=== PATIENT | female | born 1930 | race Caucasian/White ===

== ENCOUNTER 2016-07-07 12:36 | Inpatient (IN) | payer MEDICARE ==
[~2016-07-07] VITALS: Ht 170.2 cm; Wt 57.7 kg
[2016-07-07 14:20] LABS: BASOPHILS 0.1 % (0.0-2.0); EOSINOPHILS 0.2 % (0-7); HEMATOCRIT 29.2 % (36.0-48.0); HEMOGLOBIN 9.6 g/dL (12-16); IMMATURE GRANULOCYTES 0.2 % (0-5); LYMPHOCYTES 23.6 % (15-50); MCH 32.7 pg (26.0-34.0); MCHC 32.9 g/dL (31.0-37.0); MCV 99.3 fL (80.0-100.0); MEAN PLATELET VOLUME 11.4 fL (7.4-10.4); MONOCYTES 4.7 % (2-11); NEUTROPHILS 71.2 % (40-80); RBC 2.94 10x6/uL (4.00-5.40); RDW 15.3 % (11.5-14.5); WBC 8.3 10x3/uL (4.8-10.8)
--- NOTE | 2016-07-07 14:30 | NUR ---
ASSESSMENT PER ADMIT PACK.FALL PREVENTION INITIATED.ORIENTATION TO ROOM.CALL LIGHT IN REACH.BED ALARM ON AND FUNCTIONING. TO BRING LISST OF HOME MEDS IN AM.PT STATES SHE HAS NO PHARMACY AND LIVES AT [facility].
[2016-07-07 14:53] LABS: PLATELET COUNT 120 10x3/uL (130-400)
[2016-07-07 15:12] LABS: ANION GAP 10.2 mmol/L (8-16); CALCIUM 11.1 mg/dL (8.5-10.1); CARBON DIOXIDE 29.4 mmol/L (21.0-32.0); POTASSIUM - SERUM 3.6 mmol/L (3.5-5.1)
[2016-07-07 15:33] VITALS: BP 170/79; Ht 170.2 cm; Wt 57.7 kg
[2016-07-07 15:51] LABS: % SATURATION 18 % (15-55); IRON 50 ug/dl (35-150); TOTAL IRON BIND CAPACITY 272 ug/dl (260-445); UNSAT IRON BIND CAPACITY 222 ug/dl (150-375)
--- NOTE | 2016-07-07 16:50 | NUR ---
Patient Name: MARLON BAZZI Admission Status: Urgent Accout number: [id number] Admission Date: 07-07-2016 : 1930 Admission Diagnosis: Attending: ELIAS Current LOS: 1 Anticipated DC Date: 07-10-2016 Planned Disposition: Home Primary Insurance: [employer] MEDICARE PPO or HMO Discharge Planning Comments: CM MET WITH PATIENT REGARDING D/C NEEDS AND PLANS. PATIENT STATED SHE LIVES WITH HER SPOUSE (JACKIE) AND HE WILL DRIVE HER HOME AT DISCHARGE. PATIENT IS INDEPENDENT WITH HER CARE AND HAS A WALKER, AND SHOWER BENCH. PATIENTS PCP IS DR. JACKSON AND USES [facility] AT [facility]. PATIENT HAS NOT HAD HOME HEALTH BUT WILL CONSIDER IT IF NEEDED. PATIENT LIVES AT [facility]. CM WILL CONTINUE TO FOLLOW PATIENT WITH D/C NEEDS AND PLANS. PCP DR. JACKSON [facility] [phone] JACKIE (SPOUSE) [phone] Package Dyeing Machine Operator: Ira Frank Is the patient Alert and Oriented? Yes 0 * How many steps to enter\exit or inside your home? 0 0 * PCP DR. JACKSON 0 * Pharmacy [facility] 0 * Preadmission Environment Home with Family 0 * ADLs Independent 0 * Equipment Shower Chair Walker 0 * List name and contact numbers for known caregivers / representatives who currently or will assist patient after discharge: JACKIE (SPOUSE) [phone] * Community resources currently utilized None 0 * Additional services required to return to the preadmission environment? Yes 0 * Can the patient safely return to the preadmission environment? Yes 0 * Has this patient been hospitalized within the prior 30 days at any hospital? No 0 Grand Total: 0
--- NOTE | 2016-07-07 17:05 | NUR ---
UNIT 1 OF 1 PRBC'S INITIATED.PT WITHOUT REACTIONS AT PRESENT.MONITOR FOR NEEDS.
--- NOTE | 2016-07-07 17:30 | HP ---
PATIENT: MARLON BAZZI MEDICAL RECORD: [id number] ACCOUNT: [id number] LOCATION:D.MS [id number] : [birth year] ADMISSION DATE: 07/07/16 HISTORY AND PHYSICAL EXAMINATION REASON FOR ADMISSION: Bright red rectal bleeding and dizziness. HISTORY OF PRESENT ILLNESS: The patient is an 85-year-old female with remote history of diverticulosis. She had a colonoscopy approximately [address] Shankar showing diverticular disease. She also had an EGD a few years ago showing Schatzki's rings and sliding hiatal hernia. She has had a gradual weight loss over the last several years with negative GI workup. She states that over the weekend, she developed some abdominal cramping and some bloody stools. states she had some watery bloody stools about , Wednesday afternoon and in the evening. She saw Dr. Haddad in our office on Wednesday. Hemoglobin had dropped from 12.9 in March to 9.9. The patient states she had been eating lots of red Jell-O and thought this was the cause of her symptoms. She was called to come back in to repeat her CBC today, hemoglobin dropped to 8.9. I performed a rectal exam in the office showing bright red blood per rectum and was grossly heme positive. No rectal masses were noted. She was mildly tachycardic with a heart rate of 100. She was normotensive; however. She is now being admitted for probable diverticular bleeding and potential transfusion with GI consultation. She denies any recent constipation or change in stool caliber prior to the onset of bleeding. PAST MEDICAL HISTORY: Osteoarthritis, essential hypertension, cholelithiasis with cholecystectomy, diverticulosis, dyslipidemia, history of closed pelvic fracture from fall, hypothyroidism, history of nephrolithiasis, GERD with Schatzki's ring, vitamin D deficiency, urinary incontinence with frequent urinary tract infections, had a right rotator cuff tear from a fall in 2011, refusing surgery, and had vein ____ of her left leg remotely. PAST SURGICAL HISTORY: Appendectomy, cholecystectomy laparoscopically, ____ suspension and right total knee replacement in 2013. ALLERGIES: CARDIZEM CAUSES BRADYCARDIA, CODEINE, COZAAR MAKES HER DIZZY, LUMINAL, PHENOBARBITAL, MOBIC, PAXIL, SOMA AND SULFA DRUGS. FAMILY HISTORY: Both parents are , had hypertension. SOCIAL HISTORY: She is , lives with . Does not drink alcohol or smoke currently. MEDICATIONS: Levothyroxine 100 mcg p.o. daily, Cipro of 250 mg p.o. daily for suppressive UTI, tramadol 50 mg q.6 hours p.r.n. back pain, methenamine hippurate 1 gram tablet p.o. daily, Zyrtec 10 mg p.o. daily, metoprolol tartrate 50 mg p.o. daily, Breo Ellipta 100/25 one puff daily, Cardura 1 mg p.o. b.i.d., triamterene/hydrochlorothiazide 37.5 mg q.a.m., Zetia 10 mg a day, Xanax 0.25 mg b.i.d. p.r.n. anxiety, Centrum Silver 1 daily, Nasonex nasal spray daily, Timoptic 0.5% one drop both eyes daily and Lumigan 0.01% eye drop, one drop both eyes daily. REVIEW OF SYSTEMS: GENERAL: She feels chronically fatigued. She reports weight loss over the last several years, but that has been minimal. Denies recent fever. HISTORY AND PHYSICAL [id number] MARLON BAZZI HEENT: She has chronic trouble with her vision. Denies headache. Some hearing difficulty. RESPIRATORY: Mild shortness of breath on exertion. No recent cough. CARDIAC: Denies exertional chest pain, claudication and edema. GASTROINTESTINAL: No nausea or vomiting. She had cramping abdominal pain that is improved. She had frequent bloody stools 2 days ago that has now resolved. She is having dark stool, but just once daily. Abdominal pain has resolved as well and no fever. Denies fatty food intolerance. ENDOCRINE: Denies polyuria, polydipsia, heat or cold intolerance. GYNECOLOGIC: No vaginal bleeding. MUSCULOSKELETAL: Chronic lumbago and knee pain to flexion and extension on the left. NEUROLOGIC: No history of stroke, TIA, or vascular headaches. Her memory is not what it used to be she states, but she still functions well and does ADLs. INTEGUMENT: No rash or itching. PSYCHIATRIC: Denies depress mood. PHYSICAL EXAMINATION: VITAL SIGNS: Height of 5 feet 7 inches, weight is 132 pounds. Blood pressure 124/60 with a heart rate of 90 and regular. HEENT: Normocephalic. Eyes are clear with pinpoint pupils. Oropharynx is unremarkable. NECK: No bruits or masses. CHEST: She has distant breath sounds with faint wheezes in the upper lobes. HEART: Tachycardic without murmur. ABDOMEN: Soft, minimally tender suprapubically, but no masses felt. RECTAL: The patient was placed in lateral decubitus position, rectal exam revealed bloody stool that was heme positive grossly. No rectal masses felt. No hemorrhoids are noted. EXTREMITIES: Evidence of prior right total knee replacement. Left knee shows mild crepitus on flexion and extension. No peripheral edema. SKIN: Shows no petechiae. NEUROLOGIC: Oriented to person, place and time. Cranial nerves are grossly intact. Gait is unsteady chronically from arthritic issues. She remembers 2/3 objects in 5 minutes. LABORATORY DATA: Stat H&H in the office showed a hemoglobin of 8.6 and hematocrit of 26.4 with a white count of 6970 and platelet count of 104,000. H&H was 12.9 and 36 two months ago. It was 9.9 and 30.4 yesterday. In March, her laboratory work showed a platelet count of 114,000 and H&H of 12.7 and 39.0 respectively. Normal liver functions and creatinine of 0.65. ASSESSMENT: 1. Acute lower gastrointestinal bleeding, suspect diverticular. 2. Symptomatic anemia. 3. Hypertension. 4. Hypothyroidism. 5. Osteoarthritis. 6. Recurrent urinary tract infection, glaucoma, dyslipidemia, history of nephrolithiasis, gastroesophageal reflux disease, Schatzki's ring, known diverticulosis, remote rotator cuff repair and vitamin D deficiency. PLAN: The patient is admitted for GI consultation. CT scan of the abdomen and pelvis with contrast. Transfusion of packed red cells as indicated. HISTORY AND PHYSICAL [id number] MARLON BAZZI TRANSINT:[id number] Voice Confirmation ID: [id number] DOCUMENT ID: [id number] DEJON JACKSON MD at 1730 CC: [id number] DICTATION DATE: 07/07/16 1324 POL[employer] DISTRICT SWITCHBOARD OPERATOR: 07/07/16 1457 ADM IN [place] [id number] [place] [address]
[2016-07-07] MEDS ORDERED: LUMIGAN 0.01%2.5 ML EACH EYE (19:13)
[2016-07-07] MEDS ORDERED: SYNTHROID100 MCG PO (19:14)
[2016-07-07] MEDS ORDERED: METOPROLOL TART50 MG PO (19:15)
[2016-07-07] MEDS ORDERED: CARDURA1 MG PO (19:19)
[2016-07-07] MEDS ORDERED: CIPRO250 MG PO (19:20)
[2016-07-07] MEDS ORDERED: METHENAMINE HIPP1 GM PO (19:21)
[2016-07-07] MEDS ORDERED: CENTRUM COMPLE1 EACH PO (19:24)
[2016-07-07] MEDS ORDERED: TRIAMTERENE-HCT1 TA1 PO (19:24)
[2016-07-07] MEDS ORDERED: PRESERVISION AR1 CAP PO (19:25)
[2016-07-07 20:46] VITALS: BP 160/78
[2016-07-08 04:00] VITALS: BP 167/80
--- NOTE | 2016-07-08 07:10 | NUR ---
REPORT RECEIVED FROM ELECTRICAL LABORATORY TECHNICIAN NURSE. CALL LIGHT IN REACH.
--- NOTE | 2016-07-08 08:22 | NUR ---
ASSESSMENT COMPLETED. I&O CATH USING STERILE TECHNIQUE. SAMPLE COLLECTED FOR UA WITH C&S AND SENT TO LAB. SCDs APPLIED TO BLE. PHARMACY OBTAINED AND PLACED IN COMPUTER. DID NOT OBTAIN PASSWORD D/T CONFIDENTIALITY STATUS. BED ALARM TURNED ON. CALL LIGHT IN REACH. WILL CONTINUE WITH PLAN OF CARE.
[2016-07-08 08:24] LABS: HAPTOGLOBIN 97 mg/dL (34-200)
[2016-07-08 08:41] VITALS: BP 161/98
--- NOTE | 2016-07-08 08:43 | NUR ---
BED ALARM TURNED OFF.
[2016-07-08 09:18] LABS: APPEARANCE HAZY (CLEAR); BILIRUBIN NEGATIVE (NEGATIVE); COLOR YELLOW (YELLOW); GLUCOSE NEGATIVE (NEGATIVE); KETONE NEGATIVE (NEGATIVE); LEUKOCYTE ESTERASE NEGATIVE (NEGATIVE); NITRITE NEGATIVE (NEGATIVE); PROTEIN NEGATIVE (NEGATIVE); UROBILINOGEN NORMAL (NORMAL)
[2016-07-08 09:19] LABS: FOLATE (FOLIC ACID) - SERUM >20.0 ng/mL (>3.0)
--- NOTE | 2016-07-08 09:48 | NUR ---
ABDOMINAL ULTRASOUND COMPLETE AT THIS TIME. PT REQUESTING TO HAVE CLEAR LIQUIDS. WILL CHECK WITH CARSON, MANAGER FOOD BEVERAGE AND MAKE SURE THAT IS OKAY. DENIES OTHER NEEDS AT PRESENT TIME. CALL LIGHT IN REACH, WILL CONTINUE WITH PLAN OF CARE.
[2016-07-08 10:14] LABS: BASOPHILS 0.2 % (0.0-2.0); EOSINOPHILS 0.6 % (0-7); HEMATOCRIT 30.7 % (36.0-48.0); HEMOGLOBIN 10.3 g/dL (12-16); IMMATURE GRANULOCYTES 0.2 % (0-5); MCH 32.2 pg (26.0-34.0); MCHC 33.6 g/dL (31.0-37.0); MEAN PLATELET VOLUME 11.4 fL (7.4-10.4); MONOCYTES 7.1 % (2-11); NEUTROPHILS 63.9 % (40-80); PLATELET COUNT 109 10x3/uL (130-400); RDW 15.6 % (11.5-14.5)
--- NOTE | 2016-07-08 10:21 | NUR ---
AM MEDS ADMINISTERED. REFUSED ALL MEDS EXCEPT FOR METOPROLOL, VOLTAREN GEL, AND 1/2 PACK OF MIRALAX. AT BEDSIDE. CALL LIGHT IN REACH.
[2016-07-08 10:26] LABS: CALCIUM 9.4 mg/dL (8.5-10.1); CARBON DIOXIDE 29.7 mmol/L (21.0-32.0); CHLORIDE - SERUM 107 mmol/L (98-107); POTASSIUM - SERUM 3.1 mmol/L (3.5-5.1); SODIUM 142 mmol/L (136-145); eGFR NON AFRICAN AMERICAN 84 mL/min (90-120)
[2016-07-08 10:31] LABS: MCV 95.9 fL (80.0-100.0); WBC 5.2 10x3/uL (4.8-10.8)
[2016-07-08 10:40] LABS: CALC OSMOLALITY 283 mosm/kg (275-300); CREATININE - SERUM 0.7 mg/dL (0.6-1.3); GLUCOSE 99 mg/dL (74-106); UREA NITROGEN 15 mg/dL (7-18)
--- NOTE | 2016-07-08 11:20 | NUR ---
STOOL SAMPLE COLLECTED AND SENT TO LAB FOR TESTS.
--- NOTE | 2016-07-08 11:29 | CN ---
PATIENT NAME:MARLON BAZZI MEDICAL RECORD: [id number] : [birth year] LOCATION:D.MS [id number] ADMIT DATE: 07/07/16 ACCOUNT: [id number] CONSULTING PHYSICIAN: SJ DHALIWAL MD REFERRING PHYSICIAN: RICK ARECHIGA MD DATE OF CONSULTATION: 07/07/2016 Gastroenterology Consultation REFERRING PHYSICIAN: Rick Arechiga MD. HISTORY OF PRESENT ILLNESS: The patient is an 85-year-old white female with a known history of significant diverticular disease, who basically was admitted with a 2-day history of painless hematochezia. She does have chronic constipation and takes MiraLax daily. Her last colonoscopy was in 2009 and revealed [id number] left-sided diverticular disease as well as some diverticular disease in the descending colon. She had an EGD in 2014, which revealed a Schatzki ring and a small hiatal hernia. Over the past several days, her hematocrit has dropped from around 12.5 to 8.5. She was subsequently admitted for further evaluation. PAST MEDICAL HISTORY: As above. She also has osteoarthritis, hypertension, hyperlipidemia, hypothyroidism, kidney stones, mild reflux. PAST SURGICAL HISTORY: Significant for cholecystectomy, appendectomy, bladder suspension, total knee replacement. ALLERGIES: CARDIZEM, CODEINE, COZAAR, PHENOBARBITAL, PAXIL, SOMA, SULFA AND MOBIC. FAMILY HISTORY: Negative for GI diseases. SOCIAL HISTORY: The patient is a nondrinker and nonsmoker. HOME MEDICATIONS: Include levothyroxine, tramadol, Zyrtec, metoprolol, Cardura, Maxzide, Zetia, Xanax, vitamins and glaucoma eye drops. REVIEW OF SYSTEMS: Noncontributory other than in HPI. PHYSICAL EXAMINATION: GENERAL: Reveals an elderly frail white female in no acute distress. She is a little hard of hearing. VITAL SIGNS: Stable. She is afebrile. CHEST: Clear. HEART: Regular rate and rhythm. ABDOMEN: Soft, nontender. EXTREMITIES: No edema. LABORATORY DATA: Remarkable for a hematocrit of 29, white count of 8000, platelet count of 120,000 with a normal differential. Electrolytes normal. BUN 26, creatinine 1. Iron saturation is 18%. Vitamin B12 and folate levels are pending. CT of the abdomen and pelvis is basically unremarkable other than some liver cysts, cardiomegaly, hydronephrosis of the left kidney and thickening of the left bladder wall, possibly related to past surgical changes. CONSULT REPORT [id number] MARLON BAZZI IMPRESSION: Acute painless hematochezia, most likely due to her first diverticular bleed. It seemed like she has already stopped bleeding at this time. She does have known [id number] diverticular disease throughout the left colon and in the ascending colon per colonoscopy several years ago as noted above. She denies any NSAID or aspirin use. She does have chronic constipation and takes MiraLax daily. RECOMMENDATION: 1. Agree with present care. 2. If bleeding recurs, we will order bleeding scan. 3. She is not really a candidate for colonoscopy at her age. 4. Agree with stool studies for the unlikely possibility of infectious colitis. TRANSINT:[id number] Voice Confirmation ID: [id number] DOCUMENT ID: [id number] SJ DHALIWAL MD at 1129 CC: RICK ARECHIGA MD [id number] DICTATION DATE: 07/07/16 185 COMPRESSION MOLDING MACHINE OPERATOR: 07/07/16 2141 ADM IN [facility] [address] [place] [address]
--- NOTE | 2016-07-08 13:40 | NUR ---
DENIES NEEDS AT THIS TIME. IN ROOM. CALL LIGHT IN REACH.
[2016-07-08 13:58] VITALS: BP 132/66; BP 168/82
--- NOTE | 2016-07-08 15:14 | NUR ---
CHELSIE GEL AND FLAGYL IVPB. AT BEDSIDE. CALL LIGHT IN REACH.
[2016-07-08 17:09] VITALS: BP 166/85
--- NOTE | 2016-07-08 17:09 | NUR ---
REFUSED VOLTAREN GEL. PLACED IN ENTERIC ISOLATION. EXPLAINED TO PATIENT WHY. VERBALIZED UNDERSTANDING.
--- NOTE | 2016-07-08 18:29 | NUR ---
NO CHANGES IN INITIAL ASSESSMENT. SCDs TO BLE. BED ALARM ON. CALL LIGHT IN REACH. WILL CONTINUE WITH PLAN OF CARE.
[2016-07-08 20:00] VITALS: BP 147/70
--- NOTE | 2016-07-08 20:14 | NUR ---
AWAKE WITH NO COMPLAINTS VOICED. SL INTACT TO UPPER LEFT ARM WIHTOUT REDNESS OR EDEMA NOTED. CL IN REACH.
[2016-07-09] VITALS: BP 140/72
--- NOTE | 2016-07-09 02:10 | NUR ---
resting quietly. no distress noted.
[2016-07-09 04:00] VITALS: BP 124/68
--- NOTE | 2016-07-09 04:28 | NUR ---
PT IS ASLEEP WITH EASY RESPIRATIONS AND NO DISTRESS NOTED. SHE HAS HER IV INFUSING WITHOUT PROBLEMS AND HER SCD'S ARE OFF AT THE MOMENT. ISOLATION REMAINS IN PLACE. THE BED IS LOW, RAILS UP X'S 2 WITH CALL LIGHT AT HAND.
--- NOTE | 2016-07-09 05:39 | NUR ---
NO CHANGE IN ASSESSMENT. CL IN REACCH.
[2016-07-09 06:39] LABS: BASOPHILS 0.5 % (0.0-2.0); EOSINOPHILS 1.4 % (0-7); HEMATOCRIT 28.5 % (36.0-48.0); HEMOGLOBIN 9.4 g/dL (12-16); IMMATURE GRANULOCYTES 0.2 % (0-5); MCH 32.3 pg (26.0-34.0); MEAN PLATELET VOLUME 10.6 fL (7.4-10.4); MONOCYTES 9.2 % (2-11); NEUTROPHILS 63.7 % (40-80); PLATELET COUNT 112 10x3/uL (130-400); RBC 2.91 10x6/uL (4.00-5.40); RDW 15.8 % (11.5-14.5); WBC 5.8 10x3/uL (4.8-10.8)
[2016-07-09 06:47] LABS: CALC OSMOLALITY 278 mosm/kg (275-300); CALCIUM 9.3 mg/dL (8.5-10.1); CARBON DIOXIDE 29.7 mmol/L (21.0-32.0); CHLORIDE - SERUM 107 mmol/L (98-107); CREATININE - SERUM 0.6 mg/dL (0.6-1.3); GLUCOSE 114 mg/dL (74-106); POTASSIUM - SERUM 3.5 mmol/L (3.5-5.1); SODIUM 139 mmol/L (136-145); UREA NITROGEN 13 mg/dL (7-18); eGFR NON AFRICAN AMERICAN > 90 mL/min (90-120)
[2016-07-09 06:51] LABS: MCV 97.9 fL (80.0-100.0)
--- NOTE | 2016-07-09 07:45 | NUR ---
ALERT, DENIES NEEDS, CALL LIGHT IN REACH, BED LOWEST POSITION, VITALS STABLE, ASSESSMENT COMPLETE, WILL CONTINUE TO MONITOR
[2016-07-09 07:57] VITALS: BP 152/71
--- NOTE | 2016-07-09 08:00 | NUR ---
PT IN FOR POSSIBLE GI BLEED, IV FLUID AND MAINTENANCE PROVIDED FOR PT AT THIS TIME. BED AT LOWEST SETTING SRX2 CALL LIGHT WITHIN REACH WILL CONTINUE TO MONITOR
[2016-07-09 12:20] VITALS: BP 135/67
[2016-07-09 15:08] LABS: HEMOGLOBIN 8.1 g/dL (12-16); MCHC 32.4 g/dL (31.0-37.0); MCV 98.8 fL (80.0-100.0); MEAN PLATELET VOLUME 10.9 fL (7.4-10.4); PLATELET COUNT 110 10x3/uL (130-400); RBC 2.53 10x6/uL (4.00-5.40); RDW 15.8 % (11.5-14.5); WBC 5.3 10x3/uL (4.8-10.8)
[2016-07-09 15:48] LABS: BASOPHILS 0.4 % (0.0-2.0); EOSINOPHILS 1.5 % (0-7); IMMATURE GRANULOCYTES 0.2 % (0-5); LYMPHOCYTES 23.4 % (15-50); MONOCYTES 7.7 % (2-11); NEUTROPHILS 66.8 % (40-80)
[2016-07-09 16:14] VITALS: BP 176/89
[2016-07-09 19:25] LABS: INR 1.28 (0.85-1.17); PROTIME 15.9 SECONDS (11.6-15.0)
[2016-07-09 20:00] VITALS: BP 148/73
[2016-07-10] VITALS: BP 160/75
--- NOTE | 2016-07-10 01:56 | NUR ---
BLOOD CONTINUES TO INFUSE DEE WELL WITH NO SIGNS OF TRANSFUSION REATION WILL CONTINUE TO MONITOR AND FOLLOW CURRENT PLAN OF CARE.
--- NOTE | 2016-07-10 04:49 | NUR ---
PT IS GETTING A UNIT OF BLOOD. IT IS HER 2ND UNIT. NO REACTIONS NOTED. ASSISTED UP TO THE BATHROOM TO HAVE A BM AND TO SELF CATH. THE BED IS LOW, REAILS UP X'S 2 WITH THE CALL LIGHT AT HAND.
--- NOTE | 2016-07-10 07:45 | NUR ---
ON BED KING, NO BLOOD SEEN IN LOOSE STOOL THIS AM, HELP TO THE BATHROOM TO SHE NEEDED TO STARIGHT CATH, DENIES OTHER NEEDS, BED LOWEST POSITION, CALL LIGHT IN REACH, WILL CONTINUE TO MONITOR
[2016-07-10 08:43] LABS: BASOPHILS 0.1 % (0.0-2.0); EOSINOPHILS 0.9 % (0-7); IMMATURE GRANULOCYTES 0.1 % (0-5); LYMPHOCYTES 17.6 % (15-50); MCHC 33.6 g/dL (31.0-37.0); MEAN PLATELET VOLUME 10.2 fL (7.4-10.4); MONOCYTES 6.9 % (2-11); NEUTROPHILS 74.4 % (40-80); PLATELET COUNT 110 10x3/uL (130-400); RDW 17.7 % (11.5-14.5)
[2016-07-10 08:44] LABS: HEMATOCRIT 35.4 % (36.0-48.0); HEMOGLOBIN 11.9 g/dL (12-16); MCV 92.2 fL (80.0-100.0); RBC 3.84 10x6/uL (4.00-5.40); WBC 6.9 10x3/uL (4.8-10.8)
[2016-07-10 08:53] LABS: CALC OSMOLALITY 283 mosm/kg (275-300); CALCIUM 8.7 mg/dL (8.5-10.1); CARBON DIOXIDE 29.8 mmol/L (21.0-32.0); CHLORIDE - SERUM 106 mmol/L (98-107); CREATININE - SERUM 0.6 mg/dL (0.6-1.3); GLUCOSE 99 mg/dL (74-106); SODIUM 143 mmol/L (136-145); UREA NITROGEN 11 mg/dL (7-18); eGFR NON AFRICAN AMERICAN > 90 mL/min (90-120)
--- NOTE | 2016-07-10 11:00 | NUR ---
LYING IN BED,WITHOUT DISTRESS.CALL LIGHT IN REACH
[2016-07-10 12:45] VITALS: BP 137/66
--- NOTE | 2016-07-10 13:01 | NUR ---
UP IN BED EATING LUNCH, DENIES NEEDS, WILL CONTINUE TO MONITOR
[2016-07-10 16:10] VITALS: BP 118/58
[2016-07-10 20:33] VITALS: BP 148/72
[2016-07-11 00:17] VITALS: BP 151/83
[2016-07-11 04:00] VITALS: BP 136/63
[2016-07-11 06:56] LABS: HEMATOCRIT 31.8 % (36.0-48.0); HEMOGLOBIN 10.7 g/dL (12-16); MCH 31.2 pg (26.0-34.0); MCHC 33.6 g/dL (31.0-37.0); MCV 92.7 fL (80.0-100.0); MEAN PLATELET VOLUME 10.7 fL (7.4-10.4); RBC 3.43 10x6/uL (4.00-5.40); RDW 18.1 % (11.5-14.5)
[2016-07-11 07:01] LABS: WBC 5.1 10x3/uL (4.8-10.8)
--- NOTE | 2016-07-11 07:30 | NUR ---
PT ASSESSMENT COMPLETE AWAKE AND ALERT ORINETED X 3 LUNGS CLAER BILATERALLY NO ACUTE DISTRESS NOTED DR ENGLISH CYR RECTAL EXAM DONE NO BLEEDING NOTED. PT DENEIS PAIN AT THSI TIME
--- NOTE | 2016-07-11 08:00 | NUR ---
PATIENT ALERT IN BED RESTING QUIETLY. RESPIRATIONS EVEN AND UNLABORED. FAMILY AT BEDSIDE. SIDE RAILS UP X2. BED IN LOW POSITION. CALL LIGHT IN REACH.
[2016-07-11 08:24] VITALS: BP 166/78
[2016-07-11 12:14] VITALS: BP 157/81
--- NOTE | 2016-07-11 14:00 | NUR ---
PT UP TO SHOWER NO ACUTE DISTRESS NTOED VOICES ALL NEEDS STAFF CALL LIGHT IN REACH SIDE RAILS UP X 2
[2016-07-11 16:30] VITALS: BP 149/86
--- NOTE | 2016-07-11 18:15 | NUR ---
PT RESTING IN BED CALL LIGHT IN REACH
[2016-07-11 20:00] VITALS: BP 177/91
[2016-07-12 04:00] VITALS: BP 153/73
[2016-07-12 07:10] LABS: OVA + PARASITE EXAM Final report (())
[2016-07-12 07:33] LABS: BASOPHILS 0.3 % (0.0-2.0); EOSINOPHILS 2.4 % (0-7); HEMATOCRIT 33.1 % (36.0-48.0); HEMOGLOBIN 11.1 g/dL (12-16); IMMATURE GRANULOCYTES 0.2 % (0-5); LYMPHOCYTES 28.5 % (15-50); MCH 31.4 pg (26.0-34.0); MCHC 33.5 g/dL (31.0-37.0); MCV 93.5 fL (80.0-100.0); MEAN PLATELET VOLUME 10.8 fL (7.4-10.4); MONOCYTES 9.5 % (2-11); NEUTROPHILS 59.1 % (40-80); PLATELET COUNT 129 10x3/uL (130-400); RBC 3.54 10x6/uL (4.00-5.40)
[2016-07-12 07:34] LABS: WBC 6.7 10x3/uL (4.8-10.8)
--- NOTE | 2016-07-12 07:35 | NUR ---
SITTING UP IN BED, DENIES NEEDS, ASSESSMENT COMPLETE, BED LOWEST POSITION, CALL LIGHT IN REACH, HOPING TO GET TO GO HOME TODAY, WILL CONTINUE TO MONITOR
[2016-07-12 10:07] VITALS: BP 148/71
[2016-07-12 12:50] VITALS: BP 141/66
--- NOTE | 2016-07-12 13:00 | NUR ---
UP TO BATHROOM, HAD BOWEL MOVEMENT BUT FLUSHED BEFORE I COULD MONITOR, PLACED A HAT IN HER BATHROOM TO COLLECT NEXT SAMPLE TO SEE IF SHE IS BLEEDING AGAIN
[2016-07-12 15:50] LABS: HEMATOCRIT 31.8 % (36.0-48.0); HEMOGLOBIN 10.6 g/dL (12-16); MCH 31.4 pg (26.0-34.0); MCHC 33.3 g/dL (31.0-37.0); MCV 94.1 fL (80.0-100.0); MEAN PLATELET VOLUME 10.6 fL (7.4-10.4); RBC 3.38 10x6/uL (4.00-5.40); RDW 17.9 % (11.5-14.5); WBC 6.8 10x3/uL (4.8-10.8)
[2016-07-12 17:17] VITALS: BP 142/74
[2016-07-12 19:00] VITALS: BP 174/81
--- NOTE | 2016-07-13 02:00 | NUR ---
PT IN BED WITH NO DISTRESS. RESPIRATIONS EVEN AND UNLABORED. SIDE RAILS X 2. BED LOW. BED ALARM ON. CALL LIGHT IN REACH.
--- NOTE | 2016-07-13 02:14 | NUR ---
EYES CLOSED RESPIRATIONS WITH EASE AND UNLABORED. SR UP X2 CALL LIGHT WITHIN REACH.
[2016-07-13 04:00] VITALS: BP 175/88
[2016-07-13 08:34] VITALS: BP 185/84
[2016-07-13 11:25] VITALS: BP 172/72
[2016-07-13 15:40] VITALS: BP 143/74
[2016-07-13 16:02] LABS: HEMATOCRIT 32.9 % (36.0-48.0); HEMOGLOBIN 10.7 g/dL (12-16); MCH 30.9 pg (26.0-34.0); MCHC 32.5 g/dL (31.0-37.0); MCV 95.1 fL (80.0-100.0); RBC 3.46 10x6/uL (4.00-5.40); RDW 17.8 % (11.5-14.5); WBC 5.8 10x3/uL (4.8-10.8)
[2016-07-13 19:00] VITALS: BP 154/78
--- NOTE | 2016-07-13 19:45 | NUR ---
PATIENT LYING IN BED, HEAD OF THE BED AT 45 DEGREES. PATIENT IS WATCHING T.V. NO NEEDS EXPRESSED AT THIS TIME. BED IN LOWEST POSITION, CALL LIGHT IN REACH, CONTINUE TO MONITOR, CONTINUE PLAN OF CARE.
[2016-07-14] VITALS: BP 143/70
--- NOTE | 2016-07-14 02:05 | NUR ---
REC'D PATIENT SITTING UP IN BED WATCHING TV. ALERT AND ORIENTED X4. DENIES PAIN AT THIS TIME. IS WANTING TO HAVE HER MEDS EARLY SO SHE CAN GO TO BED. NO DISTRESS NOTED. UP WITH ASSIST. DENIES FURTHER NEEDS AT THIS TIME. INTRUCTED TO CALL IF NEEDED ANYTHING. BED LOW, LOCKED CALL LIGHT IN REACH.
[2016-07-14 04:00] VITALS: BP 157/79
--- NOTE | 2016-07-14 06:01 | NUR ---
PATIENT RESTING IN BED. ADMINISTERED MEDS PRESCRIBED. NO DISTRESS NOTED. DENIED PAIN AT THIS TIME. DENIED FURTHER NEEDS AT THIS TIME. INSTUCTED TO CALL IF NEEDED ANYTHING. BED LOW, LOCKED, CALL LIGHT IN REACH.
[2016-07-14 07:31] LABS: CALC OSMOLALITY 282 mosm/kg (275-300); CALCIUM 8.8 mg/dL (8.5-10.1); CARBON DIOXIDE 31.9 mmol/L (21.0-32.0); CHLORIDE - SERUM 106 mmol/L (98-107); CREATININE - SERUM 0.7 mg/dL (0.6-1.3); GLUCOSE 91 mg/dL (74-106); SODIUM 141 mmol/L (136-145); UREA NITROGEN 19 mg/dL (7-18); eGFR NON AFRICAN AMERICAN 84 mL/min (90-120)
--- NOTE | 2016-07-14 07:40 | NUR ---
ASSISTED PT TO BATHROOM AT THIS TIME. PT SELF CATHETERIZED AND HAD A SMALL BM. ASSISTED BACK TO BED. SRX2 WITH BED IN LOWEST POSITION AND WHEELS LOCKED. BED ALARM ON AND CALL LIGHT IN REACH. WILL CONTINUE WITH PLAN OF CARE.
[2016-07-14 07:53] LABS: POTASSIUM - SERUM 2.8 mmol/L (3.5-5.1)
[2016-07-14 08:10] VITALS: BP 149/75
--- NOTE | 2016-07-14 08:33 | NUR ---
SCHEDULED MEDICATIONS ADMINISTERED AT THIS TIME WITHOUT DIFFICULTY. ASSESSMENT PERFORMED PER FLOWSHEET. PT DENIES NEEDS OR PAIN AT THIS TIME. SCD'S ON AND IN WORKING ORDER. CALL LIGHT IN REACH, WILL CONTINUE WITH PLAN OF CARE.
[2016-07-14 11:32] VITALS: BP 131/67
--- NOTE | 2016-07-14 13:37 | NUR ---
NUTRITION MONITORING & EVAL CHART REVIEWED, PT VISIT. REMAINS IN ISOLATION. TOLERATING REG DIET, 50% INTAKE. RD FOLLOWING
[2016-07-14 13:58] LABS: CALC OSMOLALITY 280 mosm/kg (275-300); CALCIUM 9.2 mg/dL (8.5-10.1); CARBON DIOXIDE 27.8 mmol/L (21.0-32.0); CHLORIDE - SERUM 107 mmol/L (98-107); CREATININE - SERUM 0.6 mg/dL (0.6-1.3); GLUCOSE 120 mg/dL (74-106); POTASSIUM - SERUM 4.2 mmol/L (3.5-5.1); SODIUM 139 mmol/L (136-145); UREA NITROGEN 18 mg/dL (7-18); eGFR NON AFRICAN AMERICAN > 90 mL/min (90-120)
[2016-07-14 14:40] LABS: HEMATOCRIT 32.2 % (36.0-48.0); HEMOGLOBIN 10.6 g/dL (12-16); MCH 31.7 pg (26.0-34.0); MCHC 32.9 g/dL (31.0-37.0); MCV 96.4 fL (80.0-100.0); MEAN PLATELET VOLUME 10.5 fL (7.4-10.4); RBC 3.34 10x6/uL (4.00-5.40); RDW 17.7 % (11.5-14.5); WBC 5.6 10x3/uL (4.8-10.8)
--- NOTE | 2016-07-14 15:35 | NUR ---
PRN ZOFRAN ADMINISTERED PER ORDER FOR C/O NAUSEA WHEN PT TAKES ANTIBIOTIC. REMAINS IN ISOLATION FOR C-DIFF AT THIS TIME. TO BE DISCHARGED PER DR JACKSON AFTER HE FINISHES AT THE CLINIC. MADE PT AWARE AND SHE VERBALIZED UNDERSTANDING.
[2016-07-14] MEDS ORDERED: FLAGYL500 MG PO (16:52)
[2016-07-14] MEDS ORDERED: ZOFRAN ODT4 MG/UDTAB PO (16:54)
--- NOTE | 2016-07-14 18:05 | NUR ---
DISCHARGE PAPERWORK REVIEWED AT THIS TIME. IV TO LEFT UPPER ARM D/C WITH CATH TIP INTACT. DENIES QUESTIONS OR CONCERNS.
--- NOTE | 2016-07-15 09:19 | NUR ---
LATE ENTRY: PATIENT D/C HOME YESTERDAY - SPOUSE DROVE HER. PATIENT DID NOT WANT HOME HEALTH OR HAD ANY OTHER NEEDS.
== END 2016-07-14 18:05 | disposition home or self-care (01) | DRG 378 ==
LOC: D.MS 12:36
PROVIDERS: Specialist; ADMIT Family Medicine
DX: K57.33 Diverticulitis of large intestine without perforation or abscess with bleeding (principal); D62 Acute posthemorrhagic anemia; N13.30 Unspecified hydronephrosis; R33.8 Other retention of urine; E87.6 Hypokalemia; K59.09 Other constipation; N32.3 Diverticulum of bladder; M19.90 Unspecified osteoarthritis, unspecified site; K64.4 Residual hemorrhoidal skin tags

== ENCOUNTER 2016-08-08 18:58 | Emergency (ER) | payer MEDICARE ==
[2016-07-07 15:33] VITALS: BMI 19.9
[~2016-08-08 18:58] MED LIST: CARDURA1 MG PO; CENTRUM COMPLE1 EACH PO; CIPRO250 MG PO; FLAGYL500 MG PO; LUMIGAN 0.01%2.5 ML EACH EYE; METHENAMINE HIPP1 GM PO; METOPROLOL TART50 MG PO; PRESERVISION AR1 CAP PO; SYNTHROID100 MCG PO; TRIAMTERENE-HCT1 TA1 PO; ZOFRAN ODT4 MG/UDTAB PO
[2016-08-08 21:35] LABS: BASOPHILS 0.4 % (0-2); EOSINOPHILS 0.5 % (0-7); HEMATOCRIT 35.2 % (36.0-48.0); HEMOGLOBIN 11.1 g/dL (12-16); IMMATURE GRANULOCYTES 0.2 % (0-5); LYMPHOCYTES 18.5 % (15-50); MCH 30.4 pg (26.0-34.0); MCHC 31.5 g/dL (31.0-37.0); MCV 96.4 fL (80.0-100.0); MEAN PLATELET VOLUME 10.5 fL (7.4-10.4); MONOCYTES 9.6 % (2-11); NEUTROPHILS 70.8 % (40-80); PLATELET COUNT 149 10x3/uL (130-400); RBC 3.65 10x6/uL (4.00-5.40); RDW 15.1 % (11.5-14.5); WBC 5.6 10x3/uL (4.8-10.8)
[2016-08-08 21:42] LABS: APPEARANCE HAZY (CLEAR); BILIRUBIN NEGATIVE (NEGATIVE); COLOR YELLOW (YELLOW); GLUCOSE NEGATIVE (NEGATIVE); KETONE NEGATIVE (NEGATIVE); LEUKOCYTE ESTERASE 1+ (NEGATIVE); NITRITE POSITIVE (NEGATIVE); PROTEIN TRACE mg/dL (NEGATIVE); SPECIFIC GRAVITY 1.015 (1.005-1.020); UROBILINOGEN NORMAL (NORMAL)
[2016-08-08 21:43] LABS: CALCIUM OXALATE CRYSTALS OCC /hpf (NONE SEEN); EPITHELIAL CELLS 0-5 /hpf (0-5); RED CELLS - URINE 0-5 /hpf (0-5)
[2016-08-08 21:44] LABS: BACTERIA MANY /hpf (NONE SEEN)
[2016-08-08 21:49] LABS: ALBUMIN 2.7 g/dL (3.4-5.0); ALKALINE PHOSPHATASE 49 U/L (46-116); ALT (SGPT) 18 U/L (10-68); BILIRUBIN - TOTAL 0.34 mg/dL (0.2-1.3); CALC OSMOLALITY 276 mosm/kg (275-300); CALCIUM 9.3 mg/dL (8.5-10.1); CARBON DIOXIDE 32.4 mmol/L (21.0-32.0); CHLORIDE - SERUM 101 mmol/L (98-107); CREATININE - SERUM 0.7 mg/dL (0.6-1.3); GLUCOSE 100 mg/dL (74-106); POTASSIUM - SERUM 3.7 mmol/L (3.5-5.1); PROTEIN - SERUM 5.1 g/dL (6.4-8.2); SODIUM 138 mmol/L (136-145); UREA NITROGEN 14 mg/dL (7-18); eGFR NON AFRICAN AMERICAN 84 mL/min (90-120)
== END 2016-08-08 22:15 | disposition home or self-care (01) ==
LOC: D.ER 18:58
PROVIDERS: Emergency Medicine; Nurse Practitioner Family
DX: N39.0 Urinary tract infection, site not specified (principal); R33.9 Retention of urine, unspecified

== ENCOUNTER 2016-09-08 13:45 | Outpatient (CLI) | payer MEDICARE ==
--- NOTE | 2016-09-08 14:45 | NUR ---
BLADDER SCAN PERFORMED, SHOWING 578 ML URINE IN BLADDER. ENCOURAGED PATIENT TO VOID SO A RESIDUAL BLADDER SCAN MAY BE PERFORMED. PATIENT STATES "BUT I CATHETERIZE MYSELF, I'M NOT ABLE TO VOID. AND THERE'S NO USE IN CATHETERIZING RIGHT NOW, BECAUSE A NURSE JUST TRIED TO AT DR GROVER'S OFFICE AND DIDN'T GET ANYTHING OUT." ENCOURAGED PATIENT TO TRY TO CATHETERIZE SELF. STATES "I WILL, BUT I FEEL LIKE I NEED TO HAVE A BOWEL MOVEMENT FIRST. I'VE BEEN CONSTIPATED." THIS NURSE ENCOURAGED PATIENT TO TRY TO HAVE BM AND THEN CATHETERIZE SELF. ASSISTED PATIENT TO TOILET, PATIENT HAS LARGE HARD BM IN TOILET. PATIENT CATHETERIZES SELF INTO TOILET AND HAS LARGE RETURN OF LIYA-COLORED URINE IN TOILET. PATIENT RETURNS TO BED, LIES DOWN AND REPEAT BLADDER SCAN PERFORMED SHOWING 0 ML. CALL PLACED TO DR GROVER'S OFFICE, RESULTS GIVEN TO DR GROVER'S NURSE. DR GROVER'S NURSE SPEAKS WITH PATIENT'S SPOUSE ON PHONE. DISCHARGE INSTRUCTIONS GIVEN TO PATIENT AND SPOUSE. PATIENT DISCHARGED HOME WITH SPOUSE BY PRIVATE VEHICLE
[2016-09-08 15:47] VITALS: BP 141/70; Ht 170.2 cm
== END 2016-09-08 15:35 | disposition home or self-care (01) ==
LOC: D.OPS 13:45
DX: R33.9 Retention of urine, unspecified (principal)

== ENCOUNTER 2016-10-28 03:49 | Emergency (ER) | payer SELFPAY ==
[2016-10-28 05:30] LABS: APPEARANCE HAZY (CLEAR); BILIRUBIN NEGATIVE (NEGATIVE); COLOR YELLOW (YELLOW); GLUCOSE NEGATIVE (NEGATIVE); KETONE NEGATIVE (NEGATIVE); LEUKOCYTE ESTERASE TRACE (NEGATIVE); NITRITE POSITIVE (NEGATIVE); PROTEIN 2+ mg/dL (NEGATIVE); UROBILINOGEN NORMAL (NORMAL)
[2016-10-28 05:31] LABS: BACTERIA MANY /hpf (NONE SEEN); EPITHELIAL CELLS 0-5 /hpf (0-5); WHITE CELLS - URINE 0-5 /hpf (0-5)
== END 2016-10-28 05:52 | disposition home or self-care (01) ==
LOC: D.ER 03:49
PROVIDERS: Family Medicine
DX: N39.0 Urinary tract infection, site not specified (principal); W06.XXXA Fall from bed, initial encounter; Y93.89 Activity, other specified; Y92.013 Bedroom of single-family (private) house as the place of occurrence of the external cause; E03.9 Hypothyroidism, unspecified; I10 Essential (primary) hypertension

== ENCOUNTER 2016-11-02 14:00 | Inpatient (IN) | payer MEDICARE ==
[~2016-11-02] VITALS: Ht 170.2 cm; Wt 73.3 kg
[2016-11-02 15:09] LABS: BASOPHILS 0.2 % (0-2); EOSINOPHILS 0 % (0-7); HEMATOCRIT 35.2 % (36.0-48.0); HEMOGLOBIN 11.5 g/dL (12-16); IMMATURE GRANULOCYTES 0.2 % (0-5); MCH 29.9 pg (26.0-34.0); MCHC 32.7 g/dL (31.0-37.0); MCV 91.4 fL (80.0-100.0); MEAN PLATELET VOLUME 9.9 fL (7.4-10.4); MONOCYTES 16.6 % (2-11); PLATELET COUNT 127 10x3/uL (130-400); RBC 3.85 10x6/uL (4.00-5.40); RDW 15.5 % (11.5-14.5); WBC 4.7 10x3/uL (4.8-10.8)
[2016-11-02 15:23] LABS: ALBUMIN 2.9 g/dL (3.4-5.0); ALKALINE PHOSPHATASE 57 U/L (46-116); ALT (SGPT) 58 U/L (10-68); BILIRUBIN - TOTAL 0.77 mg/dL (0.2-1.3); CALC OSMOLALITY 259 mosm/kg (275-300); CALCIUM 9.4 mg/dL (8.5-10.1); CARBON DIOXIDE 30.5 mmol/L (21.0-32.0); CHLORIDE - SERUM 92 mmol/L (98-107); CREATININE - SERUM 0.7 mg/dL (0.6-1.3); GLUCOSE 116 mg/dL (74-106); POTASSIUM - SERUM 5.1 mmol/L (3.5-5.1); PROTEIN - SERUM 5.6 g/dL (6.4-8.2); SODIUM 126 mmol/L (136-145); UREA NITROGEN 30 mg/dL (7-18); eGFR NON AFRICAN AMERICAN 84 mL/min (90-120)
[2016-11-02 15:30] LABS: PRO BNP 27371 pg/mL (0-450)
[2016-11-02 15:42] VITALS: BP 140/86; BMI 19.9
--- NOTE | 2016-11-02 15:52 | NUR ---
CALL PLACED TO DR JACKSON REGARDING UNABLE TO PLACE PERIPHERAL LINE X NUMEROUS STICKS. ORDERS RECIEVED TO CONSULT ANESTHESIA FOR CVL PLACEMENT. CALL PLACED TO SPOUSE [phone] AND MESSAGE LEFT ON MACHINE. CALL LIGHT IN REACH
--- NOTE | 2016-11-02 16:19 | NUR ---
DISCHARGED TO HOME AMBULATORY WITH . DISCHARGE INSTRUCTIONS GIVEN BOTH VERBALLY AND WRITTEN. ALL QUESTIONS ANSWERED. PATIENT AND VERBALIZED UNDERSTANDING OF SAME. NEEDED PRESCRIPTIONS GIVEN TO PATIENT. ALL BELONGINGS SENT WITH PATIENT.
--- NOTE | 2016-11-02 16:33 | NUR ---
PT ADMITTED TO FLOOR. ADMISSION ASSESSMENT COMPLETE. L ARM WITH BRUISING, R LOWER LEG STASIS ULCER, SACRUM WITH ERYTHEMA. GENERALIZED EDEMA THROUGHOUT, PITTING EDEMA IN LOWER EXTREMITIES BILATERALLY. SCD'S B/L. TELEMETRY IN PLACE. 2L O2 VIA NASAL CANNULA. 16F PEÑA CATHETER PLACED BY ABHISHEK DANIELSON. R FOREARM IV INSERTED BY ANESTHESIA. NO NEEDS VOICED AT THIS TIME. FALL RISK BAND IN PLACE. CALL LIGHT WITHIN REACH, SIDE RAILS UP X 2, BED IN LOWEST POSITION.
[2016-11-02 16:34] LABS: APPEARANCE HAZY (CLEAR); COLOR DK YELLOW (YELLOW); GLUCOSE NEGATIVE (NEGATIVE); LEUKOCYTE ESTERASE NEGATIVE (NEGATIVE); NITRITE POSITIVE (NEGATIVE); PROTEIN TRACE mg/dL (NEGATIVE)
[2016-11-02 16:35] LABS: BILIRUBIN NEGATIVE (NEGATIVE); KETONE MODERATE mg/dL (NEGATIVE); UROBILINOGEN NORMAL (NORMAL)
[2016-11-02 16:39] LABS: BACTERIA MANY /hpf (NONE SEEN); EPITHELIAL CELLS 0-5 /hpf (0-5)
[2016-11-02 18:07] LABS: CKMB 2.9 U/L (0.0-3.6); CREATINE KINASE 54 UL (21-215)
--- NOTE | 2016-11-02 18:19 | NUR ---
PT ELEVATED TROPONIN CALLED TO DR. PALMA, ORDERED 80MG LASIX X 1, NOTIFIED THAT DR. HARRIS ALREADY ORDERED. NO NEW ORDERS.
--- NOTE | 2016-11-02 18:52 | NUR ---
PT RESTING IN ROOM, NO COMPLAINTS AT THIS TIME. BED IN LOWEST POSITION, SIDE RAILS UP X 2, CALL LIGHT WITHIN REACH.
--- NOTE | 2016-11-02 19:35 | NUR ---
RECIEVED SHIFT REPORT. PT IS LYING IN BED. PT IS NONVERBAL AND ONLY RESPONDS TO STIMULI. IV IS PATENT AND FLUIDS ARE RUNNING PER ORDER. O2 @ 2 PER NASAL CANNULA. SCD'S ON. PEÑA IS DRAINING URINE BY GRAVITY. PT REQUIRES ASSISTANCE TURNING IN BED FOR COMFORT AND SKIN CARE. NO SIGNS OF DISTRESS ARE NOTED. WILL MONITOR. SIDE RAILS ARE UP X 2. BED IS IN LOWEST POSITION. BED ALARM IS ON FOR SAFETY. CALL LIGHT IS WITHIN REACH.
[2016-11-02 20:00] VITALS: BP 110/54
--- NOTE | 2016-11-02 20:27 | NUR ---
SHIFT ASSESSMENT COMPLETED. SCHEDULED MEDICATION NOT GIVEN DUE TO PT BEING NPO. WILL MONITOR. SIDE RAILS X 2. BED LOW. BED ALARM ON. CALL LIGHT IN REACH.
[2016-11-03] VITALS: BP 118/66
[2016-11-03 04:00] VITALS: BP 114/58
[2016-11-03 05:19] LABS: BASOPHILS 0 % (0-2); EOSINOPHILS 0.3 % (0-7); HEMATOCRIT 36.5 % (36.0-48.0); IMMATURE GRANULOCYTES 0.2 % (0-5); LYMPHOCYTES 6.5 % (15-50); MCH 29.6 pg (26.0-34.0); MCHC 32.9 g/dL (31.0-37.0); MCV 89.9 fL (80.0-100.0); MEAN PLATELET VOLUME 10.6 fL (7.4-10.4); MONOCYTES 11.9 % (2-11); NEUTROPHILS 81.1 % (40-80); RBC 4.06 10x6/uL (4.00-5.40); RDW 15.5 % (11.5-14.5)
[2016-11-03 05:26] LABS: PLATELET COUNT 153 10x3/uL (130-400); WBC 5.9 10x3/uL (4.8-10.8)
[2016-11-03 05:44] LABS: CALC OSMOLALITY 266 mosm/kg (275-300); CALCIUM 9.1 mg/dL (8.5-10.1); CHLORIDE - SERUM 93 mmol/L (98-107); CREATININE - SERUM 0.7 mg/dL (0.6-1.3); GLUCOSE 99 mg/dL (74-106); SODIUM 130 mmol/L (136-145); UREA NITROGEN 28 mg/dL (7-18); eGFR NON AFRICAN AMERICAN 84 mL/min (90-120)
[2016-11-03 05:54] LABS: POTASSIUM - SERUM 3.9 mmol/L (3.5-5.1)
--- NOTE | 2016-11-03 07:40 | HP ---
PATIENT: MARLON BAZZI MEDICAL RECORD: [id number] ACCOUNT: [id number] LOCATION:D.[id number] : [birth year] ADMISSION DATE: 11/02/16 HISTORY AND PHYSICAL EXAMINATION REASON FOR ADMISSION: Confusion with edema and shortness of breath. HISTORY OF PRESENT ILLNESS: The patient is an 85-year-old female, who was admitted in June of this year for rectal bleeding, diverticulosis of the large colon, thought due to anti-inflammatories; chronic hydronephrosis and urinary retention. Since discharge, she is noted to be fatigued. She was seen in the office last week after being instructed by Dr. Willett on catheterization for urinary retention and hydronephrosis. Her sodium was 121 at that time. Her diuretics, i.e. thiazide was discontinued. She was placed on sodium chloride tablets and placed on fluid restriction. She apparently fell over the weekend, fell out of her bed, hit her head or neck, had negative CT in the ED. I am not sure if lab was drawn. The hospital said it was okay? She came into the office this morning with obvious increasing peripheral edema, bilateral crackles in her lungs consistent with congestive heart failure. She was directly admitted to the hospital for further evaluation. On admission, she was normotensive but sat was 88%. Sodium returned at 126 up from 121, but her BNP was markedly elevated at 27,371. Her cardiac enzymes are currently pending. She is now admitted for congestive heart failure, hyponatremia with altered mental status and pulmonary edema. PAST MEDICAL HISTORY: Recent lower GI bleed with diverticular source. Hyponatremia, [id number], anemia of GI blood loss, resolved; osteoarthritis, essential hypertension, dyslipidemia, remote history of closed pelvic fracture from a fall, hypothyroidism, nephrolithiasis, recent left hydronephrosis, urinary retention requiring self catheterization, GERD with Schatzki's ring, vitamin D deficiency, history of right rotator cuff tear refusing surgery in 2011. PAST SURGICAL HISTORY: Cholecystectomy laparoscopically, appendectomy, bladder suspension and right total knee replacement in 2013. FAMILY HISTORY: Both parents are , had hypertension. SOCIAL HISTORY: She is , lives with her . They are both having more trouble maintaining independent status. She does not drink alcohol or smoke. HOME MEDICATIONS: Sodium chloride tablets 1 p.o. q.i.d., Lumigan 0.01% eye drops to each eye at bedtime, Synthroid 100 mcg p.o. 30 minutes a.c. breakfast, Lopressor 50 mg p.o. q.a.m., Cardura 1 mg p.o. b.i.d., methenamine hippurate 1 gram p.o. at bedtime, folic acid 1 daily 1 mg, Centrum Silver 1 daily, vitamin A 1 daily, vitamin C 1 daily, nitrofurantoin 100 mg p.o. at bedtime, Xanax 0.25 mg b.i.d. p.r.n. anxiety, doxazosin 1 mg p.o. b.i.d., Timoptic 0.5% eye drops 1 drop both eyes daily and cetirizine 10 mg p.o. daily. ALLERGIES: CARDIZEM CAUSING SLOW HEART RATE, CODEINE, COZAAR, LUMINAL, MOBIC, PAXIL, SOMA AND SULFA. REVIEW OF SYSTEMS: GENERAL: She has been fatigued with poor appetite for the last few days and HISTORY AND PHYSICAL [id number] MARLON BAZZI R very lethargic according to her . HEENT: She has noticed some "visual hallucinations" in the room at the time. She has had no auditory hallucinations. She has some trouble with her hearing, wears hearing aids. RESPIRATORY: She has had increasing cough, some mild shortness of breath at rest, not been walking very much. CARDIAC: Denies chest pain, but has had dyspnea at rest and on minimal exertion, and marked swelling in her arms and legs. She denies chest pain. GENITOURINARY: She has trouble with urinary retention. Last self cath, really has not done so in the last day or so. She has history of chronic UTIs, left hydronephrosis, no recent flank pain. GYNECOLOGIC: No vaginal bleeding. ENDOCRINE: Denies polyuria, polydipsia, heat or cold intolerance. NEUROLOGIC: No history of stroke, TIA, or vascular headaches, but admits to confusion currently. PSYCHIATRIC: Denies depressed mood. MUSCULOSKELETAL: Chronic arthralgias in the lumbar spine. INTEGUMENT: No rash or itching, but has noticed increased swelling in her hands and feet for the last 3-4 days. PHYSICAL EXAMINATION: VITAL SIGNS: Temperature is 96.4 Fahrenheit orally, pulse 89 and regular, respirations were 16, blood pressure 140/86 and sat of 88% on room air, correcting to 92% on 2 liters. GENERAL: The patient is very disheveled appearing, awake and communicative, but has slower speech than usual. She knows me, but not sure where she is. HEENT: No recent visual change. Her eyes are clear. Pupils are reactive. Sclerae nonicteric. Decreased bilateral with hearing aids in EACs. Oropharynx shows dry mucous membranes. NECK: No bruits or masses. CHEST: Has bilateral crackles in the bases to the mid scapula. HEART: Regular rate and rhythm. ABDOMEN: Soft, nontender. EXTREMITIES: She has 3+ pretibial and 4+ pitting edema in both of her feet, 2+ edema of her hands. She has bruising on her left hip from recent fall. NEUROLOGIC: Oriented to person, but not to place and time. She does recognize her and myself. She cannot walk at this time due to shortness of breath. She moves her arms and legs without difficulty, has fair strength bilaterally. INTEGUMENT: Shows some bruising on her left arm and forearm and hand. LABORATORY DATA: The patient's white count is 4700, H&H of 11.5 and 35.2, and platelet count of 127,000. Sodium is 126, up from 121; potassium is 5.1, BUN and creatinine are 30 and 0.7, and glucose is 84. Her osmolality is low at 259. ProBNP is 27,371. Protein is low at 5.6. Urine shows moderate ketones, nitrite positive, 10-15 white cells per high power field, many bacteria. Urine culture in July show Enterobacter cloacae sensitive to trimethoprim sulfa, ceftazidime, Rocephin, imipenem, tobramycin and cefepime. IMAGING: Chest x-ray is currently pending. ASSESSMENT: 1. Congestive heart failure. 2. Symptomatic hyponatremia. 3. Urinary retention. HISTORY AND PHYSICAL [id number] MARLON BAZZI 4. Recurrent urinary tract infection, last was Enterobacter cloacae. 5. Respiratory failure with hypoxemia. 6. Osteoarthritis. 7. Essential hypertension. PLAN: The patient will be admitted for pulmonary support, IV diuretics once IV is placed. Place Gottlieb catheter. Cardiology consult will be obtained. We will place on IV Rocephin for her UTI at this time. TRANSINT:[id number] Voice Confirmation ID: [id number] DOCUMENT ID: [id number] DEJON JACKSON MD at 0740 CC: [id number] DICTATION DATE: 11/02/16 1655 MAGAZINE KEEPER: 11/02/16 2201 ADM IN [place] [id number] [place] [address]
--- NOTE | 2016-11-03 07:50 | NUR ---
AWAKE AND ALERT. ORIENTED X3. NO C/O THIS AM. LUNGS HAVE FAINT CRACKLES THROUGHOUT WHICH IS IMPROVED FROM YESTERDAY. OCCASSIONAL DRY COUGH NOTED. SKIN IS INTACT WITHOUT REDNESS. EXCEPT VERY EDEMATOUS IN EXTREMETIES, 2 PLUS IN ARMS AND 3 PLUS IN LEGS. REDNESS NOTED TO ANAL AND MACRINA AREAS. WILL MONITOR. IV TO RIGHT FOREARM IS PATENT WITHOUT REDNESS AT INSERTION SITE. O22L NC. PEÑA PATENT WITH CLEAR YELLOW URINE. DENIES NEEDS.
--- NOTE | 2016-11-03 08:23 | NUR ---
Patient Name: MARLON BAZZI Admission Status: Urgent Accout number: [id number] Admission Date: 11-03-2016 : 1930 Admission Diagnosis: Attending: ELIAS Current LOS: 1 Anticipated DC Date: 11-05-2016 Planned Disposition: Home Primary Insurance: [employer] MEDICARE PPO or HMO Discharge Planning Comments: CM MET WITH PATIENT REGARDING D/C NEEDS AND PLANS. PATIENT STATED SHE LIVES WITH HER SPOUSE (JACKIE) AND HE WILL DRIVE HER HOME AT DISCHARGE. PATIENT STATED SHE HAS NO STEPS OR STAIRS AT HER HOME. PATIENT HAS HELP FROM [employer] [facility] IN THE [facility]. PATIENT STATED HER PCP IS DR. JACKSON AND PHARMACY IS [facility] AT [facility]. CM SPOKE WITH PATIENT ABOUT HOME HEALTH AND SHE WANTS TO TALK TO HER SPOUSE REGARDING HOME HEALTH. CM WILL CONTINUE TO FOLLOW PATIENT WITH D/C NEEDS AND PLANS. PCP DR. JACKSON [facility] [phone] JACKIE (SPOUSE) [phone] Can Carrier: Ira Frank Is the patient Alert and Oriented? Yes 0 * How many steps to enter\exit or inside your home? N 0 * PCP DR. JACKSON 0 * Pharmacy [facility] 0 * Preadmission Environment Home with Family 0 * ADLs Partial Dependent 0 * Partial ADLs (Assistance needed) Ambulation Bathing Dressing 0 * Equipment Shower Chair Walker 0 * List name and contact numbers for known caregivers / representatives who currently or will assist patient after discharge: JACKIE (SPOUSE) [phone] 0 * Community resources currently utilized Private Duty Care 0 * Please name any agencies selected above. [facility] AT THE [facility] 0 * Additional services required to return to the preadmission environment? Yes 0 * Can the patient safely return to the preadmission environment? Yes 0 * Has this patient been hospitalized within the prior 30 days at any hospital? No 0 Grand Total: 0
[2016-11-03 09:05] VITALS: BP 103/72
[2016-11-03 13:22] VITALS: BP 133/51
--- NOTE | 2016-11-03 13:51 | NUR ---
TURNED CURRENTLY ON LEFT SIDE FOR COMFORT WITH PILLOW TO BACK AND ONE BETWEEN LEGS. BED ALARM ON FOR SAFETY AND CALL LIGHT IN REACH. GENERALIZED EDEMA GREATLY DECREASED SINCE YESTERDAY. OXYGEN ON.
[2016-11-03 14:54] VITALS: Ht 170.2 cm; Wt 73.3 kg
[2016-11-03 17:36] VITALS: BP 131/65
--- NOTE | 2016-11-03 17:53 | NUR ---
SPEECH THERAPY HERE. PATIENT ALERT AND ABLE TO SWALLOW FOODS. CALL LIGHT IN REACH
--- NOTE | 2016-11-03 19:45 | NUR ---
RECIEVED SHIFT REPORT. PT IS LYING IN BED. ALERT AND ORIENTED AND ABLE TO VERBALIZE NEEDS. IV IS PATENT AND FLUIDS ARE RUNNING PER ORDER. O2 @ 1 PER NASAL CANNULA. PEÑA IS DRAINING URINE BY GRAVITY. PT REQUIRES SOME ASSISTANCE TURNING IN BED FOR COMFORT AND SKIN CARE. PT DENIES ANY PAIN AT THIS TIME. SCD'S ON. NO NEEDS ARE VERBALIZED AT THIS TIME. WILL CONTINUE TO MONITOR. SIDE RAILS ARE UP X 2. BED IS IN LOWEST POSITION. BED ALARM IS ON FOR SAFETY. CALL LIGHT IS WITHIN REACH.
[2016-11-03 20:00] VITALS: BP 109/72
--- NOTE | 2016-11-03 21:51 | NUR ---
SHIFT ASSESSMENT COMPLETED. EYE DROPS GIVEN PER ORDER. SCHEDULED CARDURA HELD DUE TO B/P=109/72. PT REQUESTING SOMETHING TO EAT. BROTH AND CRACKERS PROVIDED. NO FURTHER NEEDS AT THIS TIME. WILL MONITOR. SIDE RAILS X 2. BED LOW. BED ALARM ON. CALL LIGHT IN REACH.
[2016-11-04] VITALS: BP 114/68
[2016-11-04 04:00] VITALS: BP 112/70
[2016-11-04 05:47] LABS: BASOPHILS 0.2 % (0-2); EOSINOPHILS 0.5 % (0-7); HEMATOCRIT 35.2 % (36.0-48.0); HEMOGLOBIN 11.8 g/dL (12-16); IMMATURE GRANULOCYTES 0.2 % (0-5); LYMPHOCYTES 8.3 % (15-50); MCH 29.9 pg (26.0-34.0); MCHC 33.5 g/dL (31.0-37.0); MCV 89.3 fL (80.0-100.0); MEAN PLATELET VOLUME 10.4 fL (7.4-10.4); MONOCYTES 8.8 % (2-11); PLATELET COUNT 160 10x3/uL (130-400); RBC 3.94 10x6/uL (4.00-5.40); RDW 15.9 % (11.5-14.5); WBC 5.9 10x3/uL (4.8-10.8)
[2016-11-04 06:23] LABS: CALC OSMOLALITY 264 mosm/kg (275-300); CALCIUM 8.7 mg/dL (8.5-10.1); CARBON DIOXIDE 34.9 mmol/L (21.0-32.0); CHLORIDE - SERUM 92 mmol/L (98-107); CREATININE - SERUM 0.6 mg/dL (0.6-1.3); GLUCOSE 86 mg/dL (74-106); POTASSIUM - SERUM 3.3 mmol/L (3.5-5.1); SODIUM 131 mmol/L (136-145); T4 THYROXIN - FREE 1.37 ng/dL (0.76-1.46); UREA NITROGEN 22 mg/dL (7-18); eGFR NON AFRICAN AMERICAN > 90 mL/min (90-120)
--- NOTE | 2016-11-04 08:05 | NUR ---
PT CONFUSED AT TIMES AOX1 RESP EVEN AND NONLABORED PT DENIES NEEDS AT THIS TIME SRX2 BED AT LOWEST SETTING CALL LIGHT WITHIN REACH IV TO RIGHT FOREARM PATENT AND INTACT AT THIS TIME WILL CONTINUE TO MONITOR
[2016-11-04 09:41] VITALS: BP 134/79
[2016-11-04 16:20] VITALS: BP 119/57
--- NOTE | 2016-11-04 19:40 | NUR ---
RECIEVED SHIFT REPORT. PT IS LYING IN BED. ALERT AND ORIENTED AND ABLE TO VERBALIZE NEEDS. IV IS PATENT AND FLUIDS ARE RUNNING PER ORDER. O2 @ 2 PER NASAL CANNULA. PEÑA IS DRAINING URINE BY GRAVITY. PT DENIES ANY PAIN AT THIS TIME. PT REQUIRES ASSISTANCE TURNING IN BED FOR COMFORT AND SKIN CARE. SCD'S ON. NO NEEDS ARE VERBALIZED AT THIS TIME. FAMILY AT THE BEDSIDE. SIDE RAILS ARE UP X 2. BED IS IN LOWEST POSITION. BED ALARM IS ON FOR SAFETY. CALL LIGHT IS WITHIN REACH.
[2016-11-04 20:00] VITALS: BP 120/60
--- NOTE | 2016-11-04 22:55 | NUR ---
SHIFT ASSESSMENT COMPLETED. NIGHT MEDS GIVEN WITH NO PROBLEMS. NO NEEDS ARE VOICED. WILL MONITOR. SIDE RAILS X 2. BED LOW. BED ALARM ON. CALL LIGHT IN REACH.
[2016-11-05 04:00] VITALS: BP 132/66
[2016-11-05 06:01] LABS: BASOPHILS 0.1 % (0-2); EOSINOPHILS 0.4 % (0-7); HEMATOCRIT 32.8 % (36.0-48.0); HEMOGLOBIN 10.8 g/dL (12-16); IMMATURE GRANULOCYTES 0.1 % (0-5); LYMPHOCYTES 8.2 % (15-50); MCH 29.8 pg (26.0-34.0); MCHC 32.9 g/dL (31.0-37.0); MCV 90.4 fL (80.0-100.0); MEAN PLATELET VOLUME 9.9 fL (7.4-10.4); MONOCYTES 7.5 % (2-11); NEUTROPHILS 83.7 % (40-80); PLATELET COUNT 151 10x3/uL (130-400); RBC 3.63 10x6/uL (4.00-5.40); RDW 16.1 % (11.5-14.5); WBC 7.2 10x3/uL (4.8-10.8)
[2016-11-05 06:23] LABS: CALC OSMOLALITY 267 mosm/kg (275-300); CALCIUM 8.4 mg/dL (8.5-10.1); CARBON DIOXIDE 35.8 mmol/L (21.0-32.0); CHLORIDE - SERUM 94 mmol/L (98-107); CREATININE - SERUM 0.7 mg/dL (0.6-1.3); GLUCOSE 96 mg/dL (74-106); POTASSIUM - SERUM 3.8 mmol/L (3.5-5.1); SODIUM 132 mmol/L (136-145); UREA NITROGEN 20 mg/dL (7-18); eGFR NON AFRICAN AMERICAN 84 mL/min (90-120)
--- NOTE | 2016-11-05 08:48 | NUR ---
PT SEEN AND ASSESSED. NO COMPLAINTS AT PRESENT. 2+ GENERALIZED EDEMA. LUNGS CLEAR. NO SOB NOTED OR VOICED. NO FAMILY AT BEDSIDE CURRENTLY. BED ALARM ON FOR SAFETY. CALL LIGHT IN REACH
[2016-11-05 09:02] VITALS: BP 151/73
--- NOTE | 2016-11-05 10:01 | EC ---
PATIENT:MARLON BAZZI DATE OF SERVICE: 11/03/16 SEX: F MEDICAL RECORD: [id number] DATE OF : [birth year] LOCATION:[facility] AGE OF PATIENT: 85 ADMISSION DATE: 11/03/16 REFERRING PHYSICIAN: INTERPRETING PHYSICIAN: CHARITY HARRIS MD ECHOCARDIOGRAM REPORT ECHO CHARGES 4 ECHO COMPLETE CLINICAL DIAGNOSIS: CHF ECHOCARDIOGRAPHIC MEASUREMENTS (adult normal given) AC root (d.<3.7cm) 4.0 cm LV Septum d (<1.2 cm> 1.1 cm Valve Excursion 2.0 cm LV Septum (systole) 1.3 cm Left Atria (s.<4.0cm> 3.6 cm LVPW d(<1.2cm) 1.2 cm RV (d.<2.3cm) 3.8 cm LVPW (sytole) 1.4 cm LV diastole(<5.6CM) 6.1 cm MV E-F(>70mm/sec) cm LV systole 4.8 cm LVOT Diameter 1.8 cm MV exc.(>10mm) cm Est.ejection fraction (50-75%) % Pericardial Effusion Y DOPPLER: LVIT cm/sec A 84.0 cm/sec E 101 cm/sec LA cm/sec RVSP 45 mmHg LVOT 116 cm/sec AOP1/2T 415 m/s Asc. Ao 218 cm/sec RVOT 71 cm/sec RA cm/sec PA 108 cm/sec AV Gradient Peak 19.03mmHg AV Mean 10.09mmHg AV Area 1.4 cm MV Gradient Peak 5.60 mmHg MV Mean 2.15 mmHg MV Area cm COMMENTS: Graduate Internship: Lynette VILLAVICENCIO Records Management Coordinator: 4 Dr. Harris TAPE# PACS DATE OF SERVICE: 11/03/2016 IMPRESSION: 1. Left ventricle: Left ventricle has left ventricular hypertrophy. There is regional wall motion abnormality. The patient has a slightly D-shaped septum. The overall ejection fraction is 25% to 30%. 2. Right ventricle: Right ventricle appears to be mildly enlarged with normal function. 3. Aortic valve: The aortic valve is trileaflet. There is mild aortic cusp sclerosis without stenosis. There is trace aortic regurgitation. ECHOCARDIOGRAM REPORT [id number] MARLON BAZZI 4. Pulmonic valve pulmonic valve is not well visualized and there is trace pulmonic insufficiency. 5. Mitral valve: Mitral valve appears to be structurally normal. There is moderate mitral regurgitation with some evidence of centralized jet. No evidence of pulmonary vein reversal. 6. The left atrium. Appears to be normal size at 3.6 cm. 7. The right atrium is not well visualized, but appears to be grossly normal. 8. Interatrial septum appears to be intact. 9. Pericardium appears to have a small pericardial effusion, but does not appear to be tamponade physiology. 10. There is a pleural effusion and appears to be an echogenic structure outside the pericardium in the pleural space, which may be compressing upon the heart slightly. Etiology is uncertain. TRANSINT:[id number] Voice Confirmation ID: [id number] DOCUMENT ID: [id number] CHARITY HARRIS MD at 1001 CC: [id number] DICTATION DATE: 11/03/16 1728 GEOMETRICIAN: 11/04/16 0025 [facility] IN [facility] [address] [place] [address]
[2016-11-05 13:26] VITALS: BP 105/57
--- NOTE | 2016-11-05 14:38 | NUR ---
Nutrition Follow Up: Chart reviewed. Pt is eating 56% meal avg on a regular [facility] soft diet with thin liquids. No BM since admit. Wt loss since admit noted. Labs reviewed. Meds noted including Lasix. Rec continue current diet. Will continue to provide selective menus and honor food preferences. RD following.
[2016-11-05 16:28] VITALS: BP 110/60
[2016-11-05 20:00] VITALS: BP 85/45
[2016-11-05 21:25] VITALS: BP 120/60
--- NOTE | 2016-11-05 23:53 | NUR ---
PT SLOW TO RESPOND TO QUESTIONS. EDEMA +2 ALL EXTREMITIES. BLOOD PRESSURE LOW WITH VITAL MACHINE 85/45. MANUAL BP TAKEN RIGHT ARM 120/60. TELEMETRY RUNNING 89 CONTROLLED A-FIB. COMPLETE ASSESSMENT PER FLOW-SHEET. WILL CONTINUE TO MONITOR.
[2016-11-06] VITALS: BP 120/57
[2016-11-06 04:00] VITALS: BP 141/84
[2016-11-06 06:15] LABS: CALC OSMOLALITY 270 mosm/kg (275-300); CALCIUM 8.4 mg/dL (8.5-10.1); CARBON DIOXIDE 39.1 mmol/L (21.0-32.0); CHLORIDE - SERUM 95 mmol/L (98-107); CREATININE - SERUM 0.7 mg/dL (0.6-1.3); GLUCOSE 111 mg/dL (74-106); POTASSIUM - SERUM 3.4 mmol/L (3.5-5.1); SODIUM 134 mmol/L (136-145); UREA NITROGEN 17 mg/dL (7-18); eGFR NON AFRICAN AMERICAN 84 mL/min (90-120)
--- NOTE | 2016-11-06 07:15 | NUR ---
REPORT RECIEVED, ASSUMED CARE OF PT. PT RESTING IN ROOM, AT BEDSIDE. NO COMPLAINTS AT THIS TIME. BED LOW, SIDE RAILS UP X 2, CALL LIGHT WITHIN REACH.
[2016-11-06] MEDS ORDERED: IPRAT-ALBUT 0.5-3 ML UPD (07:46)
[2016-11-06] MEDS ORDERED: LISINOPRIL5 MG PO (07:47)
[2016-11-06] MEDS ORDERED: LASIX20 MG PO (07:47)
[2016-11-06] MEDS ORDERED: TIMOPTIC 0.5 % O5 ML EACH EYE (07:47)
[2016-11-06 08:27] VITALS: BP 135/68
--- NOTE | 2016-11-06 09:02 | NUR ---
CM REC. CALL FROM DEANN AT [facility] AND THEIR TRANSPORT VAN WILL PICK PATIENT UP AT 10:00 THIS MORNING W/OXYGEN FOR PATIENT. PATIENT WILL BE GOING TO A SENIOR CARE BED AT [facility] PER DEANN. NUMBER FOR REPORT ([phone] [facility]) GIVEN TO PALLAVI.
[2016-11-06] MEDS ORDERED: KEFLEX250 MG PO (09:22)
--- NOTE | 2016-11-06 09:30 | NUR ---
L WRIST IV D/C'D AT THIS TIME. CATHETER IN TACT. DRSG APPLIED. TELEMETRY REMOVED. PT DRESSED. WILL DISCHARGE.
--- NOTE | 2016-11-06 10:06 | NUR ---
REPORT CALLED TO DEANN ALVAREZ [facility]. [facility] IRON GUARDRAIL INSTALLER HERE TO STATE APPELLATE CLERK PT.
--- NOTE | 2016-11-06 10:18 | NUR ---
PT D/C ORDERED. TRANSPORTATION PROVIDED BY JAYME REYES. PEÑA CATHETER PATENT, STAT LOCK TO LEG. PT LEFT FLOOR WITH PERSONAL BELONGINGS, WITH PT.
== END 2016-11-06 10:20 | DRG 291 ==
LOC: D.MS 14:00 → OBSVTIME 14:00 → D.MS 11-03 07:35
PROVIDERS: ADMIT Family Medicine
PROC: 0T9B70Z Drainage of Bladder with Drainage Device, Via Natural or Artificial Opening (ICD-10-PCS; principal; 2016-11-02)
DX: I11.0 Hypertensive heart disease with heart failure (principal); J96.91 Respiratory failure, unspecified with hypoxia; E87.1 Hypo-osmolality and hyponatremia; E87.3 Alkalosis; N39.0 Urinary tract infection, site not specified; R41.82 Altered mental status, unspecified; R33.9 Retention of urine, unspecified; I10 Essential (primary) hypertension; M19.90 Unspecified osteoarthritis, unspecified site; I50.23 Acute on chronic systolic (congestive) heart failure

== ENCOUNTER 2016-12-26 01:18 | Emergency (ER) | payer MEDICARE, OTHER ==
[2016-11-03 14:54] VITALS: BMI 27.6
[~2016-12-26 01:18] MED LIST changes: +IPRAT-ALBUT 0.5-3 ML UPD; +KEFLEX250 MG PO; +LASIX20 MG PO; +LISINOPRIL5 MG PO; +TIMOPTIC 0.5 % O5 ML EACH EYE
== END 2016-12-26 03:30 | disposition home or self-care (01) ==
LOC: D.ER 01:18
DX: S42.201A Unspecified fracture of upper end of right humerus, initial encounter for closed fracture (principal); X58.XXXA Exposure to other specified factors, initial encounter; Y93.89 Activity, other specified; Y92.029 Unspecified place in mobile home as the place of occurrence of the external cause; I10 Essential (primary) hypertension

== ENCOUNTER 2017-01-10 06:01 | Inpatient (IN) | payer MEDICARE ==
[2017-01-10] VITALS (20 sets, daily range): BP systolic 106–151; BP diastolic 41–81
[2017-01-10 06:25] LABS: BASOPHILS 0.1 % (0-2); EOSINOPHILS 0.6 % (0-7); HEMATOCRIT 37.5 % (36.0-48.0); HEMOGLOBIN 12.1 g/dL (12-16); IMMATURE GRANULOCYTES 0.2 % (0-5); LYMPHOCYTES 15.2 % (15-50); MCH 31.7 pg (26.0-34.0); MCHC 32.3 g/dL (31.0-37.0); MCV 98.2 fL (80.0-100.0); MEAN PLATELET VOLUME 9.6 fL (7.4-10.4); MONOCYTES 7.1 % (2-11); NEUTROPHILS 76.8 % (40-80); PLATELET COUNT 193 10x3/uL (130-400); RBC 3.82 10x6/uL (4.00-5.40); RDW 18.1 % (11.5-14.5); WBC 10.3 10x3/uL (4.8-10.8)
[2017-01-10 06:39] LABS: ALBUMIN 3.2 g/dL (3.4-5.0); ALKALINE PHOSPHATASE 90 U/L (46-116); ALT (SGPT) 25 U/L (10-68); BILIRUBIN - TOTAL 0.59 mg/dL (0.2-1.3); CALC OSMOLALITY 273 mosm/kg (275-300); CALCIUM 9.8 mg/dL (8.5-10.1); CARBON DIOXIDE 29.5 mmol/L (21.0-32.0); CHLORIDE - SERUM 99 mmol/L (98-107); CREATININE - SERUM 0.6 mg/dL (0.6-1.3); GLUCOSE 158 mg/dL (74-106); POTASSIUM - SERUM 4.2 mmol/L (3.5-5.1); PROTEIN - SERUM 6.8 g/dL (6.4-8.2); SODIUM 134 mmol/L (136-145); UREA NITROGEN 21 mg/dL (7-18); eGFR NON AFRICAN AMERICAN > 90 mL/min (90-120)
[2017-01-10 06:45] LABS: CREATINE KINASE 50 UL (21-215); PRO BNP 11036 pg/mL (0-450); TROPONIN-I 0.047 ng/mL (0.000-0.060)
[2017-01-10 07:01] LABS: APPEARANCE CLEAR (CLEAR); BILIRUBIN NEGATIVE (NEGATIVE); COLOR STRAW (YELLOW); GLUCOSE NEGATIVE (NEGATIVE); KETONE NEGATIVE (NEGATIVE); NITRITE POSITIVE (NEGATIVE); PROTEIN TRACE mg/dL (NEGATIVE); UROBILINOGEN NORMAL (NORMAL)
[2017-01-10 07:02] LABS: BACTERIA FEW /hpf (NONE SEEN); EPITHELIAL CELLS 0-5 /hpf (0-5); RED CELLS - URINE 0-5 /hpf (0-5); WHITE CELLS - URINE 0-5 /hpf (0-5)
[2017-01-10] MEDS ORDERED: METOPROLOL TART50 MG PO (09:50)
[2017-01-10] MEDS ORDERED: SYNTHROID100 MCG PO (09:53)
[2017-01-10] MEDS ORDERED: K-DUR20 MEQ PO ×2 (10:04→10:06)
[2017-01-10] MEDS ORDERED: CELEXA10 MG PO (10:08)
[2017-01-10] MEDS ORDERED: XANAX0.25 MG PO (10:09)
[2017-01-10] MEDS ORDERED: VOLTAREN100 GM TOPICAL (10:12)
--- NOTE | 2017-01-10 15:00 | NUR ---
CATH IS FROM HOME. UNKNOWN WHEN PLACED. 16FR PEÑA CATH INSERTED WITHOUT DIFFICULTLY AND SECURED WITH STAT LOCK.
--- NOTE | 2017-01-10 17:45 | NUR ---
DR. JACKSON NOTIFIED OF 3300CC URINE OUTPUT. ORDER REC'D TO DC BUMEX GTT AND CHECK POTASSIUM LEVEL.
--- NOTE | 2017-01-10 19:27 | NUR ---
DR ACKERMAN NOTIFIED OF CONSULT, NO ORDERS RECEIVED AT THIS TIME.
--- NOTE | 2017-01-10 19:35 | NUR ---
RECEIVED CARE OF PT, ASSESSMENT PER FLOWSHEET. PT ALERT AND ORIENTED X 4, SITTING UP IN BED IN NO APPARENT DISTRESS, BREATH SOUNDS DIM IN BILAT BASES, ON 2L ON VIA NC, O2 SAT 97-98%, PPP, EDEMA NOTED TO BLE, PEÑA CATH PATENT WITH CLEAR YELLOW URINE IN COLLECTION CHAMBER, IMPAIRED ROM TO RUE-DISLOCATED PER PT, SLING IN PLACE. ASSISTED PT TO COMFORTABLE POSITION, DENIES ANY NEEDS AT THIS TIME, VSS, WILL MONITOR.
--- NOTE | 2017-01-10 21:21 | NUR ---
NO VISITORS PRESENT AT THIS TIME, PT RESTING IN BED WATCHING TV, HR SR WITH PAC'S ON CM, BED LOW, CALL LIGHT IN REACH.
--- NOTE | 2017-01-10 23:25 | NUR ---
REASSESSMENT PER FLOWSHEET, NO ACUTE CHANGES NOTED AT THIS TIME. ASSISTED PT TO RT SIDE SUPPORTED WITH PILLOWS, VSS, DENIES ANY OTHER NEEDS.
[2017-01-11] VITALS (24 sets, daily range): BP systolic 96–139; BP diastolic 40–69; BMI 22.2
--- NOTE | 2017-01-11 01:30 | NUR ---
PT RESTING IN BED WITH EYES CLOSED, BREATHING SHALLOW BUT EVEN AND UNLABORED. VSS, BED LOW, CALL LIGHT IN REACH, SR UP X 2.
--- NOTE | 2017-01-11 04:10 | NUR ---
AM CXR COMPLETED PER MD ORDER, PT TOLERATED WITHOUT DIFFICULTY, DENIES ANY NEEDS AT THIS TIME, VSS. BED LOW AND CALL LIGHT IN REACH.
[2017-01-11 04:46] LABS: BASOPHILS 0.2 % (0-2); EOSINOPHILS 0.9 % (0-7); HEMATOCRIT 31.5 % (36.0-48.0); HEMOGLOBIN 10.3 g/dL (12-16); IMMATURE GRANULOCYTES 0.2 % (0-5); LYMPHOCYTES 29.3 % (15-50); MCH 31.8 pg (26.0-34.0); MCHC 32.7 g/dL (31.0-37.0); MCV 97.2 fL (80.0-100.0); MEAN PLATELET VOLUME 9.3 fL (7.4-10.4); MONOCYTES 9.1 % (2-11); NEUTROPHILS 60.3 % (40-80); PLATELET COUNT 149 10x3/uL (130-400); RBC 3.24 10x6/uL (4.00-5.40); RDW 18.1 % (11.5-14.5); WBC 5.5 10x3/uL (4.8-10.8)
[2017-01-11 04:51] LABS: CARBON DIOXIDE 35.8 mmol/L (21.0-32.0); CHLORIDE - SERUM 100 mmol/L (98-107); CREATININE - SERUM 0.6 mg/dL (0.6-1.3); SODIUM 139 mmol/L (136-145); UREA NITROGEN 26 mg/dL (7-18); eGFR NON AFRICAN AMERICAN > 90 mL/min (90-120)
[2017-01-11 05:04] LABS: CALC OSMOLALITY 282 mosm/kg (275-300); GLUCOSE 92 mg/dL (74-106); POTASSIUM - SERUM 3.5 mmol/L (3.5-5.1)
--- NOTE | 2017-01-11 05:40 | NUR ---
AM LABS REVIEWED, NOTHING TO TREAT PER ELECTROLYTE PROTOCOL. HR SR WITH PAC'S ON CM, VSS, CONT POC.
--- NOTE | 2017-01-11 08:26 | NUR ---
SHIFT ASSESSMENT COMPLETE. PATIENT WAS SLEEPING AROUSES TO VERBAL STIMULI EASILY. CALL LIGHT WITHIN REACH, AND BED IN LOW POSITION.
--- NOTE | 2017-01-11 09:00 | NUR ---
HEATHER MORALES APRN HERE IN TO SEE PATIENT.
--- NOTE | 2017-01-11 11:14 | NUR ---
PATIENT SLEEPING AROUSES EASILY TO VERBAL STIMULI. CALL LIGHT WITHIN REACH, BED IN LOW POSITION. CM SR WITH PAC'S NOTED RATE OF 67.
--- NOTE | 2017-01-11 13:30 | NUR ---
PATIENT BACK TO BED FROM BSC. PATIENT HAD SMALL HARD BROWN BALLS BM. PATIENT MOVED BACK TO BED WITH MINIMAL ASSIST.
--- NOTE | 2017-01-11 14:01 | HP ---
PATIENT: MARLON BAZZI MEDICAL RECORD: [id number] ACCOUNT: [id number] LOCATION:[facility] : [birth year] ADMISSION DATE: 01/10/17 HISTORY AND PHYSICAL EXAMINATION REASON FOR ADMISSION: Acute shortness of breath. HISTORY OF PRESENT ILLNESS: The patient is an 86-year-old female with history of essential hypertension and congestive heart failure. She had an echocardiogram performed earlier this year, interpreted by Dr. Posada, with an EF of 25% to 30%. Most recently, she had dislocated her right shoulder and had been at rehab at [facility]. Apparently while there, her medications were adjusted by the [facility] physician. She was taken off of diuretics Dr. Jeronimo had ordered and placed on Lasix and her Lopressor been increased to t.i.d. Nonetheless, she felt pretty well yesterday when she went to bed last night she was sitting in a recliner. About 5 in the morning, she became acutely short of breath and called her and he took her to the Emergency Room for that reason. On presentation, she was tachypneic, tachycardic and hypertensive. EMS brought the patient in and her sats were in the 80s, they gave her 40 of Lasix IV push, placed the patient on CPAP en route. She was evaluated by the ER physician, chest x-ray showed pulmonary edema. Blood gas showed a pH of 7.275, pCO2 of 65.7, pO2 of [address] the patient on IV Bumex and ordered BiPAP. The patient gradually improved with diuresis and now saturations were in the low 90s on 3 liters. She denied chest pain. She has noticed increasing peripheral edema in her ankles and feet. I am concerned that she and her are confused about how to take her medications. She was seen in my office 2 days ago and had no signs of congestive failure at that time. More recently, she dislocated her right shoulder, but decided against having shoulder surgery due to her cardiac risk. She denies recent fever or productive cough. PAST HISTORY: Congestive heart failure, EF of 25% to 30%; essential hypertension; osteoarthritis; right shoulder dislocation with probable rotator cuff tear; hyponatremia, chronic; hydronephrosis of the left kidney; chronic UTI; chronic urinary incontinence with indwelling Gottlieb. Was hospitalized October of this year for respiratory failure and demand ischemia with EF of 25% to 30%, LVH, wall motion abnormalities. History of Clostridium difficile diarrhea; history of lower GI bleed with diverticular disease; [id number] anemia of GI blood loss; chronic hyponatremia; dyslipidemia; remote history of closed pelvic fracture from fall; hypothyroidism; nephrolithiasis; GERD with Schatzki's ring; vitamin D deficiency. PAST SURGICAL HISTORY: Cholecystectomy laparoscopically, bladder suspension; right total knee replacement in 2014; appendectomy. FAMILY HISTORY: Both parents are , had hypertension. SOCIAL HISTORY: She lives with her , both are have more trouble maintaining an independent status. She does not drink alcohol or smoke cigarettes. ALLERGIES: CARDIZEM CAUSE LOW HEART RATE, CODEINE, COZAAR, LUMINAL, MOBIC, PAXIL, SOMA, AND SULFA. MEDICATIONS: May not be accurate currently. The patient states she is taking levothyroxine 0.1 mg every morning; Xanax 0.25 b.i.d. p.r.n. anxiety; diclofenac HISTORY AND PHYSICAL [id number] MARLON BAZZI gel applied to right shoulder b.i.d.; lisinopril 5 mg a day; potassium 20 mEq p.o. daily; Lopressor 50 mg a day; methenamine hippurate tablet 1 gram p.o. daily; Celexa 10 mg a day; timolol maleate 1 drop both ears daily; Lasix 20 mg b.i.d., questionable compliance; DuoNeb updrafts t.i.d.; Cardura 1 mg b.i.d.; folic acid 1 mg daily. REVIEW OF SYSTEMS: Chronic fatigue, more so in the last 12 hours. No fever. HEENT: No recent visual change, has trouble hearing. RESPIRATORY: Patient has had shortness of breath early this morning without cough or sputum production. CARDIAC: Denies chest pain. Has noted peripheral edema, right greater than left, over the last week. GASTROINTESTINAL: No nausea or vomiting, No recent change in stools or blood per rectum. GENITOURINARY: Has chronic incontinence with indwelling Gottlieb. No dysuria. ENDOCRINE: Denies polyuria, polydipsia, heat or cold intolerance. NEUROLOGIC: No history of stroke, TIA, or vascular headaches. No rash or itching. PSYCHIATRIC: Denies depressed mood. MUSCULOSKELETAL: Has marked pain in her right shoulder and weakness in her right supraspinatus. PHYSICAL EXAMINATION: VITAL SIGNS: Temperature 96.7 Fahrenheit orally, pulse 102, respirations 28, blood pressure was 178/97 with a sat of 80% on room air, 100% on CPAP. HEENT: Eyes were clear with arcus senilis. Palpebral conjunctivae is pale. Oropharynx unremarkable. NECK: No bruits or JVD. CHEST: She has crackles in bases bilaterally with no wheeze. She is not tachypneic. HEART: Regular rate without murmur. ABDOMEN: Soft and nontender. EXTREMITIES: Lower extremity has 2+ edema below the knee versus 1+ on the right. She has healed surgical scar from right total knee replacement noted, well healed. Her right shoulder with limited range of motion due to pain and subluxation. NEUROLOGIC: Oriented to person, place, and time. Cranial nerves are grossly intact. Gait was not testable. LABORATORY AND DIAGNOSTIC DATA: EKG shows sinus tachycardia with premature supraventricular complexes, LAD, poor anterior R-wave, no old EKG to compare. ABGs as above. Sodium is 134, BUN 21, creatinine is 0.9, glucose 158. ProBNP is 11,036, troponin 0.047. ASSESSMENT AND PLAN: Congestive heart failure with acute pulmonary edema; essential hypertension; left ventricular hypertrophy; chronic urinary incontinence; systolic congestive heart failure; questionable medication noncompliance; osteoarthritis; history of lower GI bleeding due to diverticulosis; chronic hyponatremia; dyslipidemia; history of nephrolithiasis; vitamin D deficiency; gastroesophageal reflux disease. PLAN: The patient was admitted to the cardiac unit for Bumex diuresis. Her states Dr. Blake did a recent echocardiogram. We will consult him to obtain that copy and further medical management cardiac standpoint per Dr. Blake. Check serial cardiac enzymes. Further workup pending clinical course. HISTORY AND PHYSICAL [id number] MARLON BAZZI TRANSINT:[id number] Voice Confirmation ID: [id number] DOCUMENT ID: [id number] DEJON JACKSON MD at 1401 CC: [id number] DICTATION DATE: 01/10/17911 FINANCE DIRECTOR: 01/10/172209 [facility] [place] [id number] [place] [address]
--- NOTE | 2017-01-11 14:07 | NUR ---
PATIENT REFUSED VOLTAREN GEL AT THIS TIME, SHE ONLY WANTS TO TAKE IT TWICE A DAY. EDUCATED PATIENT ON MED, PATIENT STILL REFUSES MED AT THIS TIME.
--- NOTE | 2017-01-11 17:26 | NUR ---
PATIENT REFUSED VOLTAREN AT THIS TIME. PATIENT DENIES ANY NEEDS OR PAIN AT THIS TIME. CALL LIGHT WITHIN REACH, BED IN LOW POSITION.
--- NOTE | 2017-01-11 18:44 | NUR ---
PATIENT REFUSED VOLTARAN AT THIS TIME. PATIENT DENIES ANY PAIN OR NEEDS. CALL LIGHT WITHIN REACH, AND BED IN LOW POSITION.
--- NOTE | 2017-01-11 19:30 | NUR ---
REPORT RECIEVED. ASSESSMENT COMPLETED. SEE FLOW SHEET FOR FURTHER DETAILS. PT REQUESTED TO GET UP AND USE THE BED SIDE COMMODE. PT WAS SUCCESSFUL HAD A SEMI SOFT BM. PT CLEANED AND HELPED BACK TO BED. PT POSITIONED FOR COMOFORT WILL CONTINUE TO MONITOR PT.
--- NOTE | 2017-01-11 21:00 | NUR ---
PT RESTING COMOFORTABLY. NO VISITORS AT THIS TIME. PT POSITIONED FOR COMFORT WILL CONTINUE TO MONITOR PT.
--- NOTE | 2017-01-11 23:00 | NUR ---
REASSESSMENT COMPLETED. NO ACUTE CHANGES AT THIS TIME. SEE FLOW SHEET FOR DETAILS. PT POSITIONED FOR COMFORT WILL CONMTINUE TO MONITOR.
[2017-01-12] VITALS (22 sets, daily range): BP systolic 108–166; BP diastolic 44–98
--- NOTE | 2017-01-12 01:00 | NUR ---
PT RESTING WITH EYES CLOSED. WILL CONTINUE TO MONITOR PT.
--- NOTE | 2017-01-12 03:00 | NUR ---
REASSESSMENT COMPLETED. NO CHANGES AT THIS TIME. PT POSITIONED FOR COMFORT. WILL CONTINUE TO MONITOR.
--- NOTE | 2017-01-12 05:03 | NUR ---
PT RESTING. IF PT WAKES UP A BATH WILL BE GIVEN. PT HAS NO AM LABS ORDERED WILL PASS THAT ALONG TO THE ON COMING NURSE. WILL CONTINUE TO MONITOR.
--- NOTE | 2017-01-12 07:30 | NUR ---
SHIFT ASSESSMENT VIA FLOWSHEET, SEE FOR DETAILS.
--- NOTE | 2017-01-12 08:00 | NUR ---
BREAKFAST TRAY PROVIDED, ASSISTED TO POSITION OF COMFORT. PT VOICES NO ADDITIONAL NEEDS AT THIS TIME. VSS, CALL LIGHT WITHIN REACH.
--- NOTE | 2017-01-12 09:25 | NUR ---
OFFERED DOCUSATE TO PATIENT. PT STATES SHE TAKES MED HS, UPDATED ACCORDINGLY.
--- NOTE | 2017-01-12 09:43 | NUR ---
POWDER SHOVELER AT BEDSIDE WITH PATIENT.
--- NOTE | 2017-01-12 10:09 | NUR ---
* Is the patient Alert and Oriented? Yes 0 * How many steps to enter\exit or inside your home? 0 0 * PCP Dr. Arechiga 0 * Pharmacy [facility] [place] [facility] 0 * Preadmission Environment Assisted Living 0 * Facility Name [facility] 0 * ADLs Partial Dependent 0 * Partial ADLs (Assistance needed) Bathing Dressing Medication Management Toileting Transfers 0 * Equipment Catheter Supplies Rolling Walker Wheelchair 0 * List name and contact numbers for known caregivers / representatives who currently or will assist patient after discharge: Spouse - Aleksandar [phone] 0 * Community resources currently utilized Home Health 0 * Please name any agencies selected above. [facility] 0 * Additional services required to return to the preadmission environment? No 0 * Can the patient safely return to the preadmission environment? Yes 0 * Has this patient been hospitalized within the prior 30 days at any hospital? No Patient Name: MARLON BAZZI Admission Status: ER Accout number: [id number] Admission Date: 01-10-2017 : 1930 Admission Diagnosis: Attending: DEJON ARECHIGA Current LOS: 2 Anticipated DC Date: 01-13-2017 Planned Disposition: Home with Home Health Primary Insurance: [employer] MEDICARE PPO or HMO Discharge Planning Comments: CM met with patient & spouse to assess dc plans/needs. Patient lives at home with her , Aleksandar @ [facility]. She requires assistance with all ADL's. She states she is often able to transfer herself from WC to bed/chair, but sometimes requires assistance. She does not ambulate. She is current with [facility] - they provide lozano catheter care monthly and as needed. She also has an aide twice a week for bathing. At dc, patient plans to return home and resume home health services. CM will follow & assist as needed. Chart Writer: Zahraa Tejeda
--- NOTE | 2017-01-12 11:55 | NUR ---
ASSISTED PT TO BSC FOR BM.
--- NOTE | 2017-01-12 15:15 | NUR ---
SPOKE WITH DR JACKSON VIA PHONE, PT STATUS REPORTED. NEW ORDERS RECEIVED. INSTRUCTED TO HOLD TRANSFER UNTIL THE AM.
--- NOTE | 2017-01-12 17:10 | NUR ---
DINNER TRAY PROVIDED. VSS. PT VOICES NO ADDITIONAL NEEDS AT THIS TIME. CALL LIGHT WITHIN REACH.
--- NOTE | 2017-01-12 19:30 | NUR ---
REC'D TO CARE, [employer]VERTISING & ONLINE PER FLOWSHEET. VSS. PT AWAKE AND ALERT. R ARM IN SLING WITH REPORT OF DISLOCATED SHOULDER. PEÑA CATH PATENT. NO IV ACCESS. PT WITH TRANSFER ORDERS AWAITING ROOM. ALARMS ON AND C/L IN REACH.
[2017-01-12] MEDS ORDERED: PRESERVISION AR1 CAP PO (21:06)
--- NOTE | 2017-01-12 21:09 | NUR ---
ADMIN PO MEDS PER ORDERS. EYE DROPS GIVEN. OVER THE COUNTER EYE VITAMIN ADDED TO HOME MED LIST PER PT REQUEST.
--- NOTE | 2017-01-12 23:22 | NUR ---
RESTING WITH EYES CLOSED, VSS.
--- NOTE | 2017-01-13 01:00 | NUR ---
PT REPOSITIONS SELF. RESTING WITH EYES CLOSED, VSS.
[2017-01-13 03:00] VITALS: BP 144/68
--- NOTE | 2017-01-13 03:00 | NUR ---
NO ACUTE CHANGES. RESTING WITH EYES CLOSED, VSS. C/L IN REACH.
--- NOTE | 2017-01-13 05:15 | NUR ---
NO VISITORS, REFUSES BATH AT THIS TIME, "WANT TO SLEEP A LITTLE LONGER".
--- NOTE | 2017-01-13 06:24 | NUR ---
AM LAB PENDING
[2017-01-13 06:29] LABS: BASOPHILS 0.2 % (0-2); EOSINOPHILS 1.8 % (0-7); HEMATOCRIT 31.2 % (36.0-48.0); IMMATURE GRANULOCYTES 0.2 % (0-5); LYMPHOCYTES 23.3 % (15-50); MCH 32.1 pg (26.0-34.0); MCHC 32.1 g/dL (31.0-37.0); MEAN PLATELET VOLUME 9.8 fL (7.4-10.4); MONOCYTES 10.4 % (2-11); NEUTROPHILS 64.1 % (40-80); PLATELET COUNT 158 10x3/uL (130-400); RBC 3.12 10x6/uL (4.00-5.40); RDW 18.1 % (11.5-14.5); WBC 5.7 10x3/uL (4.8-10.8)
[2017-01-13 06:53] LABS: ALBUMIN 2.6 g/dL (3.4-5.0); ALKALINE PHOSPHATASE 59 U/L (46-116); ALT (SGPT) 18 U/L (10-68); CALC OSMOLALITY 282 mosm/kg (275-300); CALCIUM 9.3 mg/dL (8.5-10.1); CARBON DIOXIDE 36.5 mmol/L (21.0-32.0); CHLORIDE - SERUM 100 mmol/L (98-107); CREATININE - SERUM 0.6 mg/dL (0.6-1.3); GLUCOSE 89 mg/dL (74-106); POTASSIUM - SERUM 4.3 mmol/L (3.5-5.1); PROTEIN - SERUM 5.1 g/dL (6.4-8.2); SODIUM 138 mmol/L (136-145); UREA NITROGEN 36 mg/dL (7-18); eGFR NON AFRICAN AMERICAN > 90 mL/min (90-120)
--- NOTE | 2017-01-13 07:15 | NUR ---
PT ALERT AND ORIENTED, RESPIRATIONS EVEN AND UNLABORED, DENIES PAIN, VSS, REPOSITIONED, RIGHT SHOULDER IN SLING, PEÑA DRAINING CLEAR YELLOW URINE, SEE SHIFT ASSESSMENT, BREAKFAST OFFERED, WILL CO NTINUE TO MONITOR
[2017-01-13 08:00] VITALS: BP 140/66
[2017-01-13 09:00] VITALS: BP 126/57
--- NOTE | 2017-01-13 09:27 | NUR ---
PT TOOK AM MEDS WITHOUT DIFFICULTY, UP TO BSC WITH ONE FORMED BOWEL MOVEMENT, UP IN CHAIR BY PT AT THIS TIME, ATTEMPTED TO CALL REPORT PT WILL TRANSFER TO ROOM 2107, AWAITING CALL BACK
--- NOTE | 2017-01-13 09:40 | NUR ---
RECEIVED REPORT FROM ERICK.
--- NOTE | 2017-01-13 09:42 | NUR ---
REPORT CALLED TO ADRIAN ON MED 2
--- NOTE | 2017-01-13 09:57 | NUR ---
ATTEMPTED TO NOTIFY PT OF ROOM TRANSFER, LEFT VOICEMAIL TO RETURN CALL
--- NOTE | 2017-01-13 10:03 | NUR ---
0955-RECEVIED PATIENT VIA WHEELCAIR FROM UNIT. SLING SEEN TO RIGHT ARM BUT PATIENT IS USING HER ARM TO PUSH HERSLEF UP ONTO THE BED. HARD OF HEARING. NO IV ACCESS. SLIGHT REDNESS SEEN TO SPINE AREA, BONY. BILATERAL SCD'S ON AND IN USE. FRANK ALARM TURNED ON, YELLOW ARMBAND PLACED ON PATIENT. SHE DOES HAVE NON SKID SOCKS ON. PEÑA CATH PATENT. CALL LIGHT IN USE.
--- NOTE | 2017-01-13 10:21 | NUR ---
Nutrition Follow Up: Pt is eating 84% meal avg on an AHA diet. She is receiving Ensure BID. +BM 01/12/17. Labs reviewed. Meds noted including Lasix. Rec continue current diet. RD following.
[2017-01-13 12:14] VITALS: BP 136/60
--- NOTE | 2017-01-13 12:21 | NUR ---
1220-SPUSE AT BEDSIDE. HE IS STATING THAT THE FRANK ALARM IS "TOO SENSITIVE" WHEN SHE MOVES IT GOES OFF. I TOLD HIM THAT THIS IS A HIGH FALL RISK SAFTEY ISSUE AND WE MUST HAVE IT ON HER. HE SEEMS OKAY WITH THIS ANSWER.
--- NOTE | 2017-01-13 12:52 | NUR ---
PATIENT TO REFUSE HER VOLTAREN GEL TO HER RIGHT SHOULDER. SPOUSE IN ROOM.
--- NOTE | 2017-01-13 13:34 | NUR ---
RECIEVED REPORT FROM MACIEJ ENGEL. PATIENT IS ALERT AND ORIENTED AT THIS TIME. PATIENT IS [place]. HAS A HEARING AID NOTED TO L EAR. PATIENT HAS A PEÑA CATHETER, SECRURE WITH STAT LOKC, YELLOW URINE IN DRAINAGE BAG. PATIENT IS AT BEDSIDE. PATIENT DENIES ANY NEEDS OR PAIN. FRANK ALARM ON. CPOC
--- NOTE | 2017-01-13 15:08 | NUR ---
ASSISTED PATIENT TO CHAIR, PATIENT SITTING UP IN CHAIR. CALL LIGHT IN REACH. CPOC
[2017-01-13 15:55] VITALS: BP 145/68
--- NOTE | 2017-01-13 16:00 | NUR ---
PATIENT BACK TO CHAIR, SCDS ON, FRANK MAT ALARM ON. DENIES ANY NEEDS. CPOC
--- NOTE | 2017-01-13 18:35 | NUR ---
PATIENT SITTING UP IN BED, DENIES ANY NEEDS OR PAIN. BED LOW AND LOCKED. CALL LIGHT IN REACH. CPOC
[2017-01-13 19:00] VITALS: BP 142/65
--- NOTE | 2017-01-13 20:55 | NUR ---
PT AWAKE, ALERT, ORIENTED, DENIES ANY NEEDS. RT ARM/SHOULDER IS IN A SLING. PT STATES SHE HAS A HX OF C-DIFF AND ASSOCIATES THE VOLTAREN GEL WITH THE RECTAL BLEEDING THAT OCCURRED DURING THAT TIME. I REASSURED PT THAT SHE IS GETTING MINIMAL DOSING AND THAT WE ARE WATCHING HER CLOSELY. CONTINUE TO MONITOR. BED LOW, CALL LIGHT IN REACH, SIDE RAILS X 2, HOB 35 DEGREES.
--- NOTE | 2017-01-13 23:11 | NUR ---
PT RESTING COMFORTABLY AT THIS TIME, EYES CLOSED, RESPIRATIONS EVEN AND UNLABORED. CONTINUE TO MONITOR CLOSELY. BED LOW, CALL LIGHT IN REACH, SIDE RAILS X 2, HOB 20 DEGREES.
[2017-01-14] VITALS: BP 146/70
[2017-01-14 04:00] VITALS: BP 149/74
[2017-01-14 06:17] LABS: BASOPHILS 0.2 % (0-2); EOSINOPHILS 1.4 % (0-7); HEMATOCRIT 32.6 % (36.0-48.0); HEMOGLOBIN 10.5 g/dL (12-16); IMMATURE GRANULOCYTES 0.2 % (0-5); LYMPHOCYTES 26.8 % (15-50); MCHC 32.2 g/dL (31.0-37.0); MCV 99.4 fL (80.0-100.0); MONOCYTES 10.4 % (2-11); PLATELET COUNT 177 10x3/uL (130-400); RBC 3.28 10x6/uL (4.00-5.40); RDW 18.1 % (11.5-14.5); WBC 5.8 10x3/uL (4.8-10.8)
--- NOTE | 2017-01-14 06:19 | NUR ---
PT RESTING COMFORTABLY, DENIES ANY NEEDS. CONTINUE TO MONITOR CLOSELY.
[2017-01-14 06:37] LABS: CALC OSMOLALITY 281 mosm/kg (275-300); CALCIUM 9.3 mg/dL (8.5-10.1); CARBON DIOXIDE 37.6 mmol/L (21.0-32.0); CHLORIDE - SERUM 99 mmol/L (98-107); CREATININE - SERUM 0.7 mg/dL (0.6-1.3); GLUCOSE 90 mg/dL (74-106); POTASSIUM - SERUM 4.1 mmol/L (3.5-5.1); SODIUM 137 mmol/L (136-145); UREA NITROGEN 35 mg/dL (7-18); eGFR NON AFRICAN AMERICAN 83 mL/min (90-120)
--- NOTE | 2017-01-14 07:00 | NUR ---
RECIEVED REPORT ON PATIENT, PATIENTIS ALERT AND ORIENTED AT THIS TIME. PATIENT IS SR ON MONITOR WITH A RATE OF 68 AT THIS TIME. PATIENT HAS A PEÑA SECURED WITH YELLOW URINE IN DRAINAGE BAG. SCDS ON AND TOLERATING. AT BEDSIDE. PATIENT DENIES ANY NEEDS AT THIS TIME. BED LOW AND LOCKED. CPOC
[2017-01-14 07:46] VITALS: BP 105/73
--- NOTE | 2017-01-14 09:24 | NUR ---
MORNING MEDICATIONS GIVEN WITH NO ISSUES. BED LOW AND LOCKED. CPOC
--- NOTE | 2017-01-14 10:30 | NUR ---
PATIENT SITTING UP IN CHAIR DENIES ANY NEEDS AT THIS TIME. CPOC
[2017-01-14 12:00] VITALS: BP 129/69
--- NOTE | 2017-01-14 12:00 | NUR ---
PATIENT SITTING UP IN CHAIR EATING LUNCH, DENIES ANY NEEDS. CHAIR LOCKED. CALL LIGHT IN REACH. CPOC
--- NOTE | 2017-01-14 14:30 | NUR ---
PATIENT STILL SITTING UP IN CHAIR, ASKED IF SHE WANTED TO GET BACK IN BED, AND SHE STATED NO. CALL LIGHT IN REACH. CPOC
[2017-01-14 16:11] VITALS: BP 134/71
--- NOTE | 2017-01-14 17:36 | NUR ---
PATIENT SITTING UP IN CHAIR EATING DINNER. DENIES ANY NEEDS. CPOC
--- NOTE | 2017-01-14 18:39 | NUR ---
ASSISTED PATIENT BACK TO BED, SCDS ON. PATIENT DENIES ANY FURTHER NEEDS. CPOC
--- NOTE | 2017-01-14 19:51 | NUR ---
PT IN BED RESTING QUEITLY. DENIES ANY PAIN OR NEEDS AT THIS TIME. BREATHING EVEN AND UNLABORED. BED IN LOW POSITION, CALL LIGHT WITHIN REACH.
[2017-01-14 20:00] VITALS: BP 151/73
[2017-01-15 04:00] VITALS: BP 149/73
--- NOTE | 2017-01-15 07:16 | NUR ---
RECIEVED REPORT ONPATIENT, PATIENT IS ALERT AND ORIENTED AT THIS TIME. PATIENT IS SR ON MONITOR WITH A RATE OF 66 AT THIS TIME. PATIENT HAS A PEÑA CATHETER THAT IS SECURED WITH STAT LOCK, YELLOW URINE IN DRAINAGE BAG. PATIENT DENIES ANY NEEDS AT THIS TIME. WILL CONT TO MONITOR PATIENT. CPOC
[2017-01-15 08:41] VITALS: BP 169/90
--- NOTE | 2017-01-15 09:20 | NUR ---
MORNING MEDICATION GIVEN WITH NO ISSUES. PATIENT DENIES ANY NEEDS. BED LOW AND LOCKED. CPOC
--- NOTE | 2017-01-15 09:46 | NUR ---
Nutrition Follow Up: Pt is eating 86% meal avg on an AHA diet. Wt stable. +BM 01/15/17. Labs reviewed. Meds noted including Lasix. Rec continue current diet. RD following.
--- NOTE | 2017-01-15 11:19 | NUR ---
PATIENT SITTING UP IN CHAIR, FAMILY AT BEDSIDE. DENIES ANY NEEDS. CPOC
--- NOTE | 2017-01-15 11:34 | NUR ---
Rehab Prescreening Consult recieved and the chart has been reviewed. She is [employer] Medicare and will require a preauth for inpatient rehab. She has a PT eval but will need an OT eval as well. Discussed with the CM Trish Allan RN. Nga Carson RN Clinical Liaison, Rehab
[2017-01-15 13:58] VITALS: BP 153/72
--- NOTE | 2017-01-15 15:35 | NUR ---
PATIENT SITTING UP IN CHAIR, DENIES ANY NEEDS. CPOC
--- NOTE | 2017-01-15 17:00 | NUR ---
PATIENT SITTING UP IN BED EATING DINNER. EGG CRATE GIVEN TO PATIENT, PATIENT SPINE IS BONY AND HER BOTTOM IS HURTING, NO REDNESS NOTED AT THIS TIME. WILL CONT TO MONITOR PATIENT. CPOC
--- NOTE | 2017-01-15 18:18 | NUR ---
PATIENT SITTING UP IN CHAIR AT THIS TIME. FAMILY AT BEDSIDE. PATIENT DENIES ANY NEEDS OR PAIN. CPOC
[2017-01-15 20:00] VITALS: BP 149/84
--- NOTE | 2017-01-15 20:13 | NUR ---
PT IN BED RESTING QUIETLY. DENIES ANY PAIN OR NEEDS AT THIS TIME. BED IN LOW POSITION, CALL LIGHT WITHIN REACH.
[2017-01-16] VITALS: BP 139/64
[2017-01-16 04:00] VITALS: BP 142/7
--- NOTE | 2017-01-16 07:05 | NUR ---
RECEIVED REPORT. ASSUMED CARE OF PATIENT. RESTING IN BED WITH EYES CLOSED. EASILY AROUSED. RESP EVEN AND UNLABORED. SLING TO RIGHT SHOULDER. PATIENT STATES SHE FELL 4 YEARS AGO AND WAS NOT ABLE TO UNDERGO SURGICAL INTERVENTION AND THE RECENT USE OF HER RIGHT ARM IN THERAPY HAS CAUSED IT TO BECOME SORE AND WEARING THE SLINGS HELPS. DENIES NEEDS AT THIS TIME. VERY PLEASANT. NO DISTRESS.
[2017-01-16 08:00] VITALS: BP 149/75
--- NOTE | 2017-01-16 09:28 | NUR ---
NITROGLYCERIN PATCH REMOVED FROM LEFT CHEST WALL AND NEW PATCH APPLIED TO RIGHT ANTERIOR CHEST WALL. SITTING IN CHAIR TO BEDSIDE. NO DISTRESS. CALL LIGHT WITHIN REACH.
[2017-01-16 11:24] VITALS: BP 144/69
[2017-01-16 16:00] VITALS: BP 107/62
--- NOTE | 2017-01-16 17:16 | NUR ---
PATIENT SITTING TO CHAIR AT BEDSIDE. FAMILY IN ROOM VISITING. PATIENT CONSUMING PM MEAL. REFUSED VOLTAREN GEL UNTIL 2100 DOSE IS DUE. CALL LIGHT WITHIN REACH. NO DISTRESS.
--- NOTE | 2017-01-16 20:00 | NUR ---
PT RESTING IN BED. ALERT/ORIENTED. NONLABORED RESPIRATIONS ON ROOM AIR. NO IV ACCESS. CASEY PATENT TO BEDSIDE DRAIN BAG. SR PER TELEMETRY. RIGHT ARM IN SLING. CURRENTLY WATCHING A FOOTBALL GAMES. NO NEEDS VOICED. SEE SHIFT ASSESSMENT. CPOC.
[2017-01-16 22:05] VITALS: BP 135/74
--- NOTE | 2017-01-16 22:29 | NUR ---
BEDTIME MEDS GIVEN. PT THEN ASSISTED WITH ORAL CARE. WEARING SLING TO RIGHT SHOULDER. DECLINED VOLTAREN CREAM TO RIGHT SHOULDER. ALL EYE DROPS ADMINISTERED. CASEY PEDERSON. CPOC.
[2017-01-17] VITALS: BP 138/75
--- NOTE | 2017-01-17 01:30 | NUR ---
RESTING WITH EYES CLOSED. RESPS EVEN/NONLABORED. NO IV ACCESS. CPOC.
[2017-01-17 04:00] VITALS: BP 142/67
--- NOTE | 2017-01-17 07:10 | NUR ---
RECEIVED REPORT. ASSUMED CARE OF PATIENT. PATIENT IN BED WITH EYES OPEN AWAITING ON AM MEAL. DENIES NEEDS. NO DISTRESS. CALL LIGHT WITHIN REACH.
[2017-01-17 08:00] VITALS: BP 151/71
--- NOTE | 2017-01-17 11:12 | NUR ---
PATIENT OOB TO CHAIR AT BEDSIDE. FAMILY AT BEDSIDE TO VISIT. NO DISTRESS. CALL LIGHT WITHIN REACH.
[2017-01-17 12:00] VITALS: BP 121/54
[2017-01-17 16:00] VITALS: BP 117/49
--- NOTE | 2017-01-17 16:00 | NUR ---
PATIENT SITTING UP TO CHAIR AT BEDSIDE. DENIES NEEDS AT THIS TIME. NO FAMILY HERE. ATTENTION TOWARD TELEVISION. CALL LIGHT WITHIN REACH. NO DISTRESS.
--- NOTE | 2017-01-17 18:49 | NUR ---
ASSISTED TO BED. RESTING IN BED WITH EYES OPEN. SHERBERT GIVEN UPON REQUEST. NO DISTGRESS. CALL LIGHT WITHIN REACH.
[2017-01-17 20:00] VITALS: BP 141/66
--- NOTE | 2017-01-17 20:00 | NUR ---
PT RESTING IN BED. ALERT/ORIENTED. SR PER TELEMETRY. PEÑA PATENT TO BEDSIDE DRAIN BAG. NO IV ACCESS. WEARING SLING TO RIGHT ARM. ASSESSMENT COMPLETED. NO NEEDS AT THIS TIME. CPOC. \\\
--- NOTE | 2017-01-17 23:00 | NUR ---
TYLENOL GIVEN PER PT REQUEST. PT REFUSED HER COLACE SAYING SHE HAD 3 BMS TODAY AND WAS AFRAID COLACE WOULD MAKE HER TOO LOOSE. ORAL CARE HAS BEEN DONE FOR THE NIGHT. CPOC.
[2017-01-18] VITALS: BP 146/70
[2017-01-18 04:00] VITALS: BP 133/49
--- NOTE | 2017-01-18 07:15 | NUR ---
RECIEVED REPORT ON PATIENT, PATIENT IS ALERT AND ORIENTED AT THIS TIME. PATIENT FAMILY IS AT BEDSIDE AT THIS TIME. SR ON MONITOR WITH A RATE OF 77. PATIENT DENIES ANY NEEDS OR COMPLAINTS. BED LOW AND LOCKED, CALL LIGHT IN REACH. CPOC
--- NOTE | 2017-01-18 07:20 | NUR ---
PT HAS SLEPT WELL THIS NIGHT. NO DISTRESS. ALL SCHEDULED MEDS GIVEN. CURRENTLY WITH FAMILY X 1 VISITING IN ROOM. REPORT TO ONCOMING RN.
[2017-01-18 08:00] VITALS: BP 155/80
--- NOTE | 2017-01-18 08:44 | NUR ---
20 G IV STARTED TO L FA, SL AT THIS TIME. CPOC
--- NOTE | 2017-01-18 09:15 | NUR ---
MORNING MEDICATIONS GIVEN WITH NO ISSUES. PATIENT DENIES ANY NEEDS. CPOC
[2017-01-18 10:01] LABS: ANION GAP 6.1 mmol/L (8-16); CALCIUM 9.7 mg/dL (8.5-10.1); CARBON DIOXIDE 33.2 mmol/L (21.0-32.0); CREATININE - SERUM 0.8 mg/dL (0.6-1.3); POTASSIUM - SERUM 4.3 mmol/L (3.5-5.1)
[2017-01-18] MEDS ORDERED: LASIX20 MG PO (11:09)
--- NOTE | 2017-01-18 12:24 | NUR ---
PATIENT SITTING UP IN CHAIR EATING LUNCH . DENIES ANY NEEDS. CPOC
--- NOTE | 2017-01-18 14:37 | NUR ---
PATIENT OUT OF SHOWER, SITTING UP IN CHAIR. DENIES ANY NEEDS. CPOC
--- NOTE | 2017-01-18 15:35 | NUR ---
Rehab Note- Voice message left at approximately 1500 [facility] that Dr. Smith has denied the patient an inpatient acute rehab stay and a peer to peer could be set up prior to 1700 EST today by calling [phone]. The patient can contact the appeals line at [phone]. Case #[id number]. Ashley's contact number is [phone]. Notified JULIEN Hernandez of this information. Thank you for this referral! Serina Rose RN Clinical Liaison, [facility] Rehab
[2017-01-18 16:00] VITALS: BP 139/63
--- NOTE | 2017-01-18 17:00 | NUR ---
PATIENT SITTING UP IN CHAIR, EATING LDINNER. DENIES ANY NEEDS. CPOC
--- NOTE | 2017-01-18 18:20 | NUR ---
PATIENT BACK IN BED, SCDS ON. PATIENT DENIES ANY NEEDS. CPOC
[2017-01-18 19:00] VITALS: BP 138/56
[2017-01-19] VITALS: BP 149/70
[2017-01-19 04:00] VITALS: BP 180/89
--- NOTE | 2017-01-19 05:00 | NUR ---
RESTING IN BED WITH NO DISTRESS. INITIALLY UPSET BY DISPLAY OF AGGRESSIVE BEHAVIOR SHE WITNESSED BY ANOTHER PATIENT IN THE HALLWAY. NOW THAT OTHER PATIENT IS GONE, THIS PATIETN IS CALM AND COOPERATIVE.
--- NOTE | 2017-01-19 07:15 | NUR ---
RECIEVED REPORT ON PATIENT, PATIENTIS ALERT AND ORIENTED AT THIS TIME. PATIENT IS ALERT AND ORIENTED AT THIS TIME. PATIENT HAS A L FA IV THAT IS SL AT THIS TIME. PATIENT IS SR ONMONITOR WITH A RATE OF 63 AT THIS TIME. PATIENT DENIES ANY NEEDS OR PAIN. R ARM IN SLING AT THIS TIME. BED IS LOW AND LOCKED. CALL LIGHT IN REACH. CPOC
[2017-01-19 08:00] VITALS: BP 146/75
--- NOTE | 2017-01-19 09:20 | NUR ---
MORNING MEDICATIONS GIVEN NO ISSUES. CPOC
--- NOTE | 2017-01-19 09:32 | NUR ---
Nutrition Follow Up: Pt is eating 94% meal avg on an AHA diet. Wt stable. +BM 01/18/17. Labs reviewed. Meds noted including Lasix. Rec continue current diet. RD following.
--- NOTE | 2017-01-19 10:34 | NUR ---
Recieved a call from Devan Schneider at [facility]. After a peer to peer review the denial for acute inpatient rehab has been overturned. This patient is approved for IRF 10 days with clinical U/D due on 01/28/17 to Devan Schneider at or Auth# [id number]. Notified the CM rT Martinez. The patient will be admitted today if physician agrees. Nga Carson RN Clinical Liaison, Rehab
--- NOTE | 2017-01-19 10:50 | NUR ---
PATIENT SITTING UP IN CHAIR AT THIS TIME, TOLERATING WELL. CPOC
[2017-01-19 11:24] VITALS: BP 129/60
--- NOTE | 2017-01-19 12:00 | NUR ---
PATIENT SITTING UP IN CHAIR, EATING LUNCH. DENIES ANY PAIN OR NEEDS AT THIS TIME. WILL CONT TO MONITOR PATIENT. CHAIR IS LOCKED. CALL LIGHT IN REACH. CPOC
[2017-01-19] MEDS ORDERED: LISINOPRIL2.5 MG PO (12:57)
[2017-01-19] MEDS ORDERED: ROCEPHIN 1 GM/D51 G1 IV (12:59)
--- NOTE | 2017-01-19 13:05 | NUR ---
Patient Name: MARLON BAZZI Encounter No: [id number] : 1930 Primary Insurance: [employer] MEDICARE PPO or HMO Anticipated DC Date: 01-19-2017 Planned Disposition: Inpatient Rehab External Planned Provider: [facility] INPATIENT REHAB DCP follow-up note: CM RECEIVED CALL FROM KEITH OF [facility] WHO INFORMED CM THAT PT'S DENIAL BY INSURANCE HAD BEEN OVERTURNED, PT HAS BEEN APPROVED BY INSURANCE FOR INPATIENT REHAB, THEY WILL ACCEPT PT TODAY. CM CALLED DR. JACKSON'S OFFICE, SPOKE TO ABHISHEK LOYOLA AND PROVIDED THE ABOVE INFORMATION, CM UNDERSTANDING IS THAT DR. JACKSON PLANS TO DISCHARGE TODAY TO INPATIENT REHAB. CM SPOKE TO PT IN ROOM, PT IN AGREEMENT WITH DISCHARGE TO INPATIENT REHAB TODAY. IMPORTANT MESSAGE FROM MEDICARE PROVIDED AND EXPLAINED. [facility] INPATIENT REHAB TO CONTACT MED 2 NURSE WITH ROOM NUMBER WHEN READY TO ACCEPT PT AND NURSE REPORT. Franklin Martinez, CASE MANAGEMENT
--- NOTE | 2017-01-19 14:22 | NUR ---
PATIENT SITTING UP IN CHAIR, PATIENT RESTING, NAD NOTED. WILL CONT TO MONITOR. CPOC
--- NOTE | 2017-01-19 15:30 | NUR ---
PATIENT ASSITED TO BEDSIDE COMMODE AND HAD A BM. PATIENT BACK TO CHAIR. CHAIR LOCKED. PATIENT DENIES ANY NEEDS. CPOC
[2017-01-19 16:00] VITALS: BP 140/65
--- NOTE | 2017-01-19 17:06 | NUR ---
REPORT GIVEN TO GRAY ON REHAB. DENIES ANY QUESTIONS AT THIS TIME. PATIENT IS GOING TO 1113A WHEN ROOM IS CLEAN. CPOC
--- NOTE | 2017-01-19 17:18 | NUR ---
OT NOTE: PT COMPLETED LUE STRENGTHENING FOR INCREASED SAFETY WITH TRANSFERS. PT COMPLETED DYNAMIC SITTING BALANCE WITH SBA FOR INCREASE I. PT COMPLETED GROOMING WITH SET UP. PT CUED TO ADHERE TO PRECAUTIONS FOR RUE. THANK YOU, YOU TORREZ/Orestes
--- NOTE | 2017-01-19 18:15 | NUR ---
PATIENT GONE TO REHAB.
== END 2017-01-19 18:28 | DRG 291 ==
LOC: D.ER 06:01 → D.CVICU 07:15 → D.M2 07:15
PROVIDERS: Emergency Medicine; ADMIT Family Medicine
DX: I11.0 Hypertensive heart disease with heart failure (principal); J96.90 Respiratory failure, unspecified, unspecified whether with hypoxia or hypercapnia; E87.1 Hypo-osmolality and hyponatremia; N39.0 Urinary tract infection, site not specified; I50.23 Acute on chronic systolic (congestive) heart failure; R00.0 Tachycardia, unspecified; E78.5 Hyperlipidemia, unspecified; E03.9 Hypothyroidism, unspecified; K21.9 Gastro-esophageal reflux disease without esophagitis; M19.90 Unspecified osteoarthritis, unspecified site; E55.9 Vitamin D deficiency, unspecified; I42.9 Cardiomyopathy, unspecified; I48.0 Paroxysmal atrial fibrillation; Z87.891 Personal history of nicotine dependence

== ENCOUNTER 2017-01-19 16:29 | Inpatient (IN) | payer MEDICARE ==
[~2017-01-19 16:29] MED LIST changes: +CELEXA10 MG PO; +K-DUR20 MEQ PO; +LISINOPRIL2.5 MG PO; +ROCEPHIN 1 GM/D51 G1 IV; +VOLTAREN100 GM TOPICAL; +XANAX0.25 MG PO
[2017-01-19 20:00] VITALS: BP 149/65
--- NOTE | 2017-01-19 20:00 | NUR ---
PT IS RESTING IN BED WITH EYES OPEN. ALERT AND ORIENTED X 3. DENIES ANY NEEDS AT THIS TIME. PT IS IQUGMIUT. SCD'S PLACED ON PT AT THIS TIME. PEÑA CATH IS PATENT AND DRAINING TO A GRAVITY BAG. SLING IS ON AND INTACT TO RIGHT SHOULDER. PT STATES SHE HAS A 2 YR OLD INJURY TO IT, AND IS NOT SUPPOSED TO BEAR ANY WEIGHT ON IT. SR'S ARE UP X 3 IN BED. CALL LIGHT AND BEDSIDE TABLE ARE WITHIN EASY REACH.
--- NOTE | 2017-01-19 22:20 | NUR ---
RESTING QUIETLY IN BED WITH EYES CLOSED. RESPS ARE EVEN AND UNLABORED. NO DISTRESS NOTED.
--- NOTE | 2017-01-20 02:14 | NUR ---
RESTING IN BED WITH EYES CLOSED. NO S/S OF DISTRESS OBSERVED.HOB ELEVATED. SCDS IN PLACE AND FUNCTIONING PROPERLY. RIGHT ARM IN SLING.CALL LIGHT AND OVERBED TABLE IN REACH.
[2017-01-20 04:26] VITALS: BP 149/65; BMI 25.6
--- NOTE | 2017-01-20 04:39 | NUR ---
RESTING IN BED WITH EYES CLOSED.
[2017-01-20 07:01] LABS: BASOPHILS 0.4 % (0-2); EOSINOPHILS 1.8 % (0-7); HEMATOCRIT 31.6 % (36.0-48.0); HEMOGLOBIN 10.3 g/dL (12-16); IMMATURE GRANULOCYTES 0.2 % (0-5); LYMPHOCYTES 24.5 % (15-50); MCH 32.2 pg (26.0-34.0); MCHC 32.6 g/dL (31.0-37.0); MCV 98.8 fL (80.0-100.0); MEAN PLATELET VOLUME 10.5 fL (7.4-10.4); MONOCYTES 9.7 % (2-11); NEUTROPHILS 63.4 % (40-80); PLATELET COUNT 176 10x3/uL (130-400); RDW 17.6 % (11.5-14.5)
[2017-01-20 07:21] LABS: CALC OSMOLALITY 278 mosm/kg (275-300); CALCIUM 9.2 mg/dL (8.5-10.1); CHLORIDE - SERUM 100 mmol/L (98-107); CREATININE - SERUM 0.7 mg/dL (0.6-1.3); GLUCOSE 85 mg/dL (74-106); SODIUM 137 mmol/L (136-145); UREA NITROGEN 30 mg/dL (7-18); eGFR NON AFRICAN AMERICAN 83 mL/min (90-120)
[2017-01-20 08:14] VITALS: BP 165/76
--- NOTE | 2017-01-20 09:00 | NUR ---
PT AM MEDS ADMINISTERED. PT DENIES NEEDS AT THIS TIME.
--- NOTE | 2017-01-20 12:15 | NUR ---
PT EATING LUNCH, DENIES NEEDS. WCTM.
--- NOTE | 2017-01-20 17:51 | NUR ---
CARE TEAM MEETING: PATIENT NEW TO UNIT AND WILL BE RA AT NEXT MEETING
--- NOTE | 2017-01-20 19:04 | NUR ---
PT RESTING IN ROOM, DENIES NEEDS. WCTM.
--- NOTE | 2017-01-20 19:55 | NUR ---
RM ROUNDS MADE, PT SITTING UP IN WC, INFORMED PT THAT I WILL BE BACH SHORTLY TO DO ASSESSMENT, PT VERBALIZES UNDERSTANDING, DENIES NEEDS AT THIS TIME
[2017-01-20 20:24] VITALS: BP 112/40
--- NOTE | 2017-01-20 20:24 | NUR ---
ASSESSMENT PER FLOW SHEET, PEÑA CATH INTACT, PT C/O RIGHT SHOULDER PAIN, REQUESTS TYLENOL, INFORMED PT THAT I WILL BE GETTING HER MEDS TOGETHER AND I WILL BRING IT IN WITH THEM, PT VERBALIZES UNDERSTANDING
--- NOTE | 2017-01-20 20:34 | NUR ---
ADM 2100 MEDS AND TYLENOL PER MD ORDERS, PT TAKES MEDS WITH APPLESAUCE, PT DENIES FURTHER NEEDS, RESP TO ROOM FOR TREATMENT
--- NOTE | 2017-01-20 21:15 | NUR ---
PT SITTING UP IN WC, RATES RIGHT SHOULDER PAIN 04/07, STATES "I'LL BE READY FOR BED HERE SHORTLY", INFORMED PT TO USE CALL LIGHT WHEN READY
--- NOTE | 2017-01-20 21:35 | NUR ---
PT READY FOR BED, PT BACK TO BED WITH ASSISTANCE, PANTS REMOVED, BOTTOM NOTED TO BE SLIGHTLY RED, BUTT PASTE APPLIED, PT POSITIONED TO LEFT SIDE WITH PILLOW BEHIND BACK FOR COMFORT AND SUPPORT, PT DENIES FURTHER NEEDS, BED IN LOW POSITION, SIDE RAILS X 2, CALL LIGHT IN REACH
--- NOTE | 2017-01-20 22:27 | NUR ---
PT RESTING WITH EYES CLOSED, RESP QUIET, NO DISTRESS NOTED, LEFT UNDISTURBED AT THIS TIME, BED IN LOW POSITION, SIDE RAILS X 2, CALL LIGHT IN REACH
--- NOTE | 2017-01-21 00:08 | NUR ---
PT AWAKE, RECEIVING RESP TREATMENT, DENIES NEEDS OR PAIN AT THIS TIME, BED IN LOW POSITION, SIDE RAILS X 2, CALL LIGHT IN REACH, BED ALARM ON AND WORKING PROPERLY
--- NOTE | 2017-01-21 04:20 | NUR ---
PT ENTERPRISE SYSTEMS ENGINEER LIGHT, PT REPOSITIONED TO RIGHT SIDE WITH PILLOW BEHIND BACK FOR SUPPORT AND COMFORT, SCD'S ON AND WORKING PROPERLY, EMPTIED 700 MLS FROM PEÑA CATH, PT C/O RIGHT SHOULDER PAIN, REQUESTS TO JUST TAKE 1 TYLENOL AT THIS TIME, SEE EMAR, PT DENIES FURTHER NEEDS, BED IN LOW POSITION, SIDE RAILS X 2, CALL LIGHT IN REACH
--- NOTE | 2017-01-21 05:55 | NUR ---
PT RESTING WITH EYES CLOSED, AROUSES TO SOFT VERBAL STIMULATION, ADM 0600 MEDS PER MD ORDERS, SEE EMAR, WITH APPLESAUCE AND FRESH H20, PT DENIES FURTHER NEEDS OR PAIN AT THIS TIME
--- NOTE | 2017-01-21 06:44 | NUR ---
SHIFT REPORT TO DAY SHIFT
--- NOTE | 2017-01-21 08:09 | NUR ---
PT SITTING UP EATING BREAKFAST, DENEIS NEEDS. WCTM.
[2017-01-21 08:51] VITALS: BP 154/74
--- NOTE | 2017-01-21 09:55 | NUR ---
PT AM MEDS ADMINISTERED. PT DENIES NEEDS. WCTM.
--- NOTE | 2017-01-21 18:19 | NUR ---
PT SITTING UP IN WC, DENIES NEEDS. WCTM.
--- NOTE | 2017-01-21 21:00 | NUR ---
PATIENT NOW IN BED, AWAKE. DENIES NEEDS.
[2017-01-21 21:40] VITALS: BP 139/67
[2017-01-21 22:40] VITALS: BP 126/53
--- NOTE | 2017-01-21 22:40 | NUR ---
ASSESSMENT AND HS MEDS COMPLETE. REFUSED SCHEDULED VOLATAREN GEL. SAYS SHE ONLY USES IT IN THE DAYTIME AND TAKES 2 TYLENOL AT NIGHT. 650MG TYLENOL WAS JUST GIVEN TO HER PER HER REQUEST FOR A PAIN LEVEL OF 401/ IN HER RIGHT SHOULDER.
--- NOTE | 2017-01-22 00:20 | NUR ---
RESTING QUIETLY IN BED ON LEFT SIDE. NO DISTRESS EVIDENT.
--- NOTE | 2017-01-22 02:15 | NUR ---
AWOKE WHILE I ROUNDED. ASKED FOR DOOR TO BE CLOSED.
--- NOTE | 2017-01-22 04:05 | NUR ---
REMAINS IN BED, EYES CLOSED. RESPIRING QUIETLY.
[2017-01-22 05:58] LABS: BASOPHILS 0.2 % (0-2); EOSINOPHILS 1.6 % (0-7); HEMATOCRIT 31.5 % (36.0-48.0); HEMOGLOBIN 10.3 g/dL (12-16); IMMATURE GRANULOCYTES 0.2 % (0-5); LYMPHOCYTES 26.4 % (15-50); MCH 32.4 pg (26.0-34.0); MCHC 32.7 g/dL (31.0-37.0); MCV 99.1 fL (80.0-100.0); MEAN PLATELET VOLUME 10.3 fL (7.4-10.4); MONOCYTES 10.9 % (2-11); NEUTROPHILS 60.7 % (40-80); PLATELET COUNT 181 10x3/uL (130-400); RBC 3.18 10x6/uL (4.00-5.40); RDW 17.3 % (11.5-14.5); WBC 4.5 10x3/uL (4.8-10.8)
[2017-01-22 06:43] LABS: ANION GAP 4.3 mmol/L (8-16); CALCIUM 9.1 mg/dL (8.5-10.1); CARBON DIOXIDE 33.4 mmol/L (21.0-32.0); CREATININE - SERUM 0.8 mg/dL (0.6-1.3); POTASSIUM - SERUM 3.7 mmol/L (3.5-5.1)
--- NOTE | 2017-01-22 06:50 | NUR ---
PATIENT AWAKE. DELIVERED HER SCHEDULED MEDS AND FLUSHED HER SALINE LOCK. DENIES NEEDS.
--- NOTE | 2017-01-22 07:41 | NUR ---
RESTING QUIETLY IN BED. CALL LIGHT IN REACH. BED IN LOWEST POSITION.
--- NOTE | 2017-01-22 08:15 | NUR ---
PT RESTING IN BED WITH EYES OPEN CALL LIGHT IN REACH NO PROBLEMS WILL MONITER
[2017-01-22 08:19] VITALS: BP 152/76
--- NOTE | 2017-01-22 12:52 | NUR ---
PT RESTING IN BED WITH EYES OPEN CALL LIGHT IN REACH NO PROBLEMS WILL MONITER
--- NOTE | 2017-01-22 16:52 | RHP ---
PATIENT: MARLON BAZZI MEDICAL RECORD: [id number] ACCOUNT: [id number] [id number] [birth year] ADMISSION DATE: 01/19/17 REHABILITATION HISTORY AND PHYSICAL EXAMINATION POST ADMISSION PHYSICIAN EXAMINATION DATE OF ADMISSION: 01/19/2017 ADMITTING DIAGNOSIS: Acute congestive heart failure. HISTORY OF PRESENT ILLNESS: The patient admitted to the inpatient rehab for cardiac acute CHF. She is an 86-year-old female with a history of essential hypertension and congestive heart failure. She had an echocardiogram that showed an EF of 25% to 30%. She felt pretty well prior to her acute hospital admit when she went to bed the night prior. She was sitting in a recliner. At about 5 in the morning, she became acutely short of breath and was brought to the ED with EMS. She was tachycardic, tachypneic, and hypertensive. Her sats were in the 80s. She was given 40 mg of Lasix IV push, placed the patient on CPAP en route. She was evaluated by the ER physician. Chest x-ray showed pulmonary edema. Blood gases showed a pH of 7.275, pCO2 of 65, pO2 of 112 on 3 liters. The patient was placed on IV Bumex and ordered BiPAP on the CV ICU. The patient has gradually improved with diuresis. Her sats were in the low 90s on 3 liters. She is currently on 2 liters nasal cannula. Recently, she dislocated her right shoulder, but decided against having shoulder surgery due to the cardiac risk and has been receiving therapy at [facility]. She had a history of CHF with an EF of 25% to 30%, essential hypertension, osteoarthritis, right shoulder dislocation with probable rotator cuff tear, electrolyte abnormalities, hydronephrosis, UTI. She was hospitalized in October of this year for respiratory failure and demand ischemia with an EF of 25% to 30%, left ventricular hypertrophy, wall motion abnormalities. She has got a history of C. diff, history of lower GI bleed, diverticular disease, chronic anemia. She has got a remote history of a closed pelvic fracture from a fall, hypothyroidism, gastroesophageal reflux disease, vitamin D deficiency. She has responded to oxygen and IV Lasix. She was found to have UTI with multi-organism sensitive to Rocephin. She has improved, but she deconditioned and she has chronic right shoulder pain. After a [id number] was able to obtain inpatient rehab for 10 days and for platform jose juan PT. Meds were correct at NH for the 86-year-old female. She will be admitted with respiratory distress, hypoxic respiratory failure due to pulmonary edema. She is currently living at [facility] and her diuretic therapy was discontinued there. She diuresed well here in the hospital, be admitted to inpatient rehab and will follow her closely. Comorbidities in this patient include CHF, respiratory failure, urinary tract infection, hypertension, osteoarthritis, congestive heart failure, respiratory failure, peripheral edema, chronic fatigue, left ventricular hypertrophy, chronic urinary incontinence, chronic hyponatremia, dyslipidemia, nephrolithiasis, vitamin D deficiency, and gastroesophageal reflux disease. PAST MEDICAL HISTORY: Significant for CHF, essential hypertension, osteoarthritis, right shoulder dislocation, hydronephrosis, UTI, history of lower GI bleed, Clostridium difficile, [id number] anemia, hyponatremia, dyslipidemia, remote history of a pelvic fracture, nephrolithiasis, vitamin D deficiency, arthritis, and vertigo. PAST SURGICAL HISTORY: Includes cholecystectomy, bladder suspension, right knee surgery, appendectomy, vein stripping, and cataract surgery. HISTORY AND PHYSICAL [id number] MARLON BAZZI ALLERGIES: HYDROCODONE. SHE IS CURRENTLY ALSO ALLERGIC TO CARDIZEM, CODEINE, COZAAR, LUMINAL, MOBIC, PAXIL, SOMA, AND SULFA DRUGS. MEDICATIONS: Current medications include Rocephin. She is on potassium 20 mEq daily, Zestril 2.5 mg daily, levothyroxine 100 mcg daily, multivitamin daily, Celexa 10 mg daily, Tylenol 650 every 6 hours p.r.n., Colace 100 mg b.i.d., Timoptic 1 drop at bedtime, DuoNeb updrafts, furosemide 20 mg b.i.d., Voltaren gel as needed, Lumigan eye drops at bedtime. She is on Xanax 0.25 mg b.i.d. as needed, and polyethylene glycol 17 grams in 8 ounces of water daily. HABITS: No alcohol or tobacco use. FAMILY HISTORY: Noncontributory. SOCIAL HISTORY: The patient hopes to return back to home and get back to her prior level of function. REVIEW OF SYSTEMS: GENERAL: Does complain of weakness and fatigue. HEENT: Denies cold, cough, or congestion. CARDIOVASCULAR: Denies any chest pain. PHYSICAL EXAMINATION: VITAL SIGNS: Stable, afebrile. GENERAL: An elderly female, in no acute distress upon exam. HEENT: Normocephalic and atraumatic. Mucosa moist. NECK: Supple. No lymphadenopathy. LUNGS: Clear at this time. HEART: Regular rate and rhythm. ABDOMEN: Benign. EXTREMITIES: No clubbing, cyanosis, or edema. NEUROLOGIC: Seems intact. LABORATORY DATA: Her white count is 5.0, H&H of 10 and 32, and platelet count was noted to be 176. Her sodium is 137, potassium 4.0, BUN and creatinine of 30 and 0.7, blood sugar is noted to be 85. ASSESSMENT: This is an 86-year-old female patient admitted to rehab with a working diagnosis of congestive heart failure. The patient has potential to make improvement. We will institute the following multidisciplinary therapies including, but not limited to physical, occupational, respiratory, speech, nutritional services, prosthetics and orthotics. Given her complex condition and risk for more complications, rehabilitation services cannot be provided at a low level of care such as a alf facility. PLAN: 1. Admit to [facility] for intensive inpatient therapy to include the following disciplines: A. Physical therapy to improve gait, all transfer skills and bed mobility to a modified independent level. B. Occupational therapy to improve activities of daily living to a modified independent level. C. Case management to assist with discharge planning and placement options. D. Nutrition to assist with nutritional needs. HISTORY AND PHYSICAL [id number] MARLON BAZZI. Rehabilitation nursing to assist in monitoring the patient's underlying medical conditions and to assist with any type of bowel or bladder management. 2. The patient's current medication and medical care will be continued. 3. The patient will be placed on standard fall precautions. 4. The patient's estimated length of stay is approximately 10 days. 5. We will discuss this patient during care team staff meeting this week. TRANSINT:[id number] Voice Confirmation ID: [id number] DOCUMENT ID: [id number] SHERON notes whether there has been none or any medical/functional change since admission: - No change since prescreen. SHERON attests patient continues to be appropriate for IRF: - Continues to be appropriate. LATONYA LOJA MD at 1652 CC: [id number] DICTATION DATE: 01/20/17 0851 B[employer]K [employer] HANDLING PLANT OPERATOR: 01/20/17 1027 ADM IN [id number] [place] [address]
--- NOTE | 2017-01-22 18:32 | NUR ---
PT RESTING IN BED WITH EYES OPEN CALL LIGHT IN REACH WILL MONITER
--- NOTE | 2017-01-22 19:20 | NUR ---
PATIENT IN RECLINER AT BEDSIDE. DENIES NEEDS.
--- NOTE | 2017-01-22 20:30 | NUR ---
REMAINS IN RECLINER AWAITING SPECIFICATIONS WRITER ASSIST TO SHOWER.
[2017-01-22 22:00] VITALS: BP 112/69
--- NOTE | 2017-01-22 22:00 | NUR ---
ASSESSMENT AND HS MEDS COMPLETE. REFUSED SCHEDULED VOLTAREN GEL AND RECEIVED INSTEAD TYLENOL 650MG PO, PER HER REQUEST. SHE WAS ASSISTED TO SHOWER AND GOWN, AND DECLINED LINEN CHANGE SAYING IT WAS DONE EARLIER ON DAY SHIFT. TYLENOL WAS FOR PAIN LEVEL OF 3/10 IN RIGHT SHOULDER. READJUSTED HER SLING. DENIES FURTHER NEEDS.
--- NOTE | 2017-01-23 00:15 | NUR ---
IN BED, EYES CLOSED. RESTING QUIETLY.
--- NOTE | 2017-01-23 02:00 | NUR ---
RESTING QUIETLY, EYES CLOSED.
--- NOTE | 2017-01-23 04:35 | NUR ---
IN BED, EYES CLOSED. RESPIRATIONS UNLABORED.
--- NOTE | 2017-01-23 06:25 | NUR ---
GAVE PATIENT SCHEDULED MEDS EXCEPT FOR LASIX WHICH WAS NOT AVAILABLE. ASSISTE HER TO CHANGE HER SHIRT BUT SHE DECLINED TO PUT ON HER PANTS FOR NOW.
--- NOTE | 2017-01-23 08:10 | NUR ---
PT RESTING IN BED WITH EYES OPEN CALL LIGHT IN REACH WILL MONITER
[2017-01-23 09:03] VITALS: BP 162/79
--- NOTE | 2017-01-23 12:15 | NUR ---
PT UP AT BEDSIDE EATING LUNCH AT BEDSIDE WILL MONITER
--- NOTE | 2017-01-23 14:48 | NUR ---
UP IN W/C AT THIS TIME. PLEASANT AND COOPERATIVE. DENIES ANY PAIN. SALINE LOCK TO LEFT FOREARM. DRESSING INTACT WITH NO REDNESS OR SWELLING TO SITE. SL PATENT. SLING TO RIGHT ARM. F/C PATENT AND DRAINING CLEAR YELLOW URINE TO BEDSIDE DRAINAGE SYSTEM.CALL LIGHT AND OVERBED TABLE IN REACH.
[2017-01-23 19:00] VITALS: BP 130/67
--- NOTE | 2017-01-23 19:20 | NUR ---
UP IN W/C AT BEDSIDE. ASSISTED PATIENT UP TO BR COMMODE DUE TO BM URGENCY. PATIENT HAD ALREADY HAD A LARGE SEMIFORMED BM IN HER PULL-UP AND CONTINUED TO PASS STOOLWHILE STANDING AT COMMODE REQUIRING SEAT TO BE CLEANED OFF BEFORE SHE SAT DOWN.
--- NOTE | 2017-01-23 20:20 | NUR ---
UP AT SINK IN BR BRUSHING HER TEETH.
--- NOTE | 2017-01-23 21:40 | NUR ---
PATIENT NOW IN BED. ASSESSMENT AND HS MEDS COMPLETED. REFUSED COLACE DUE TO LOOSE STOOL INCONTINENCE EARLIER. TURNED HER TO HER LEFT SIDE WITH PILLOW FOR POSITIONING.
--- NOTE | 2017-01-23 22:40 | NUR ---
RESTING QUIETLY IN BED, EYES CLOSED.
--- NOTE | 2017-01-24 00:35 | NUR ---
REMAINS IN BED ON LEFT SIDE. NO DISTRESS EVIDENT.
--- NOTE | 2017-01-24 02:20 | NUR ---
IN BED, EYES CLOSED. RESTING QUIETLY.
--- NOTE | 2017-01-24 03:00 | NUR ---
PATIENT AWAKE. ASSISTED TO TURN HER TO RIGHT SIDELYING POSITION.
--- NOTE | 2017-01-24 04:40 | NUR ---
CONTINUES IN BED ON RIGHT SIDE. EYES CLOSED. EMPTIED 900ML CLEAR YELLOW URINE FROM PEÑA DRAINAGE BAG FOR TOTAL OF 1650ML FOR SHIFT.
--- NOTE | 2017-01-24 05:40 | NUR ---
GAVE PATIENT SCHEDULED PO MEDS AND FLUSHED LEFT FA S/L. CLIPPED AND REMOVED TEMP MONITORING WIRE FROM URINARY CATHETER.
[2017-01-24 08:06] VITALS: BP 158/64
--- NOTE | 2017-01-24 08:15 | NUR ---
PT AM MEDICATIONS ADMINISTERED. PT DENIES NEEDS. WCTM.
--- NOTE | 2017-01-24 12:15 | NUR ---
PT EATING LUNCH, ROGELIO NEEDS. WCTM.
--- NOTE | 2017-01-24 18:25 | NUR ---
PT EATING DINNER, DENIES NEEDS. WCTM.
[2017-01-24 19:00] VITALS: BP 151/70
--- NOTE | 2017-01-24 19:20 | NUR ---
ASSISTED PATIENT TO TRANSFER FROM W/C TO RECLINER AT BEDSIDE. CURRENTLY WATCHING WORLD SERIES.
--- NOTE | 2017-01-24 19:20 | NUR ---
REPOSITIONED PATIENT UP IN BED. LOWERED HOB TO COMFORTABLE ANGLE OF 30 DEGREES. APPLIED SCD'S. REMOVED DINNER TRAY PATIENT HAS REFUSED TO EAT TONIGHT SAYING SHE IS NOT HUNGRY.
--- NOTE | 2017-01-24 21:20 | NUR ---
PATIENT C/O RIGHT SHOULDER PAIN OF LEVEL 3/10. GAVE HER TYLENOL 650 MG PO.
--- NOTE | 2017-01-24 21:20 | NUR ---
ASSESSMENT AND HS MEDS COMPLETE. PATIENT REMAINS UP IN W/C WATCHING TV. D/C'D 20GA S/L FROM LEFT FOREARM WITH BEVEL INTACT. APPLIED DRESSING.
--- NOTE | 2017-01-24 22:05 | NUR ---
REMAINS UP IN W/C WATCHING THE GAME.
--- NOTE | 2017-01-25 00:35 | NUR ---
RESTING IN BED, EYES CLOSED. LYING ON LEFT SIDE WITH HOB UP 20 DEGREES. APPEARS COMFORTABLE.
--- NOTE | 2017-01-25 02:20 | NUR ---
IN BED, RESTING ON RIGHT SIDE IN APPARENT COMFORT.
--- NOTE | 2017-01-25 06:25 | NUR ---
GAVE PATIENT SCHEDULED PO MEDS AND ASSISTED HER TO DRESS HER UPPER BODY. DECLINED TO PUT ON SUPPORT HOSE AND PANTS AT THIS TIME SAYING SHE MIGHT HAVE AN INCONTINENT BM BEFORE THERAPY AND DOSE NOT WANT TO SOIL THEM.
[2017-01-25 09:00] VITALS: BP 145/75
--- NOTE | 2017-01-25 10:00 | NUR ---
PT AM MEDS ADMINISTERD. PT DENIES NEEDS. WCTM.
--- NOTE | 2017-01-25 12:15 | NUR ---
PT SITTING UP IN WC EATING LUNCH, FAMILY ASSISTING. WCTM.
--- NOTE | 2017-01-25 19:40 | NUR ---
PT. SITTING UP IN W/C AND HER PEÑA CATHETER BAG IS LEAKING. PT. REPORTS IT WAS LEAKING YESTERDAY AND IT HAD TO BE CHANGED. CLEANED UP FLOOR WHERE URINE HAD LEAKED AND CHECKED PEÑA BAG AND THE TUBING HAS A LEAK IN IT. PEÑA DRAINAGE BAG CHANGED. ASSESSMENT COMPLETED. NO VOICED NEEDS AT THIS TIME AND HER CALL LIGHT IS WITHIN REACH.
[2017-01-25 20:34] VITALS: BP 132/63
--- NOTE | 2017-01-25 23:30 | NUR ---
PT. IN BED WITH HOB UP FOR COMFORT AND LYING ON HER LEFT SIDE. EYES CLOSED AND RESP. EVEN. SCD'S TO BLE'S ON AND WITHOUT ALARMS. CALL LIGHT WITHIN REACH.
--- NOTE | 2017-01-26 03:20 | NUR ---
PT. IN BED WITH HOB UP FOR COMFORT LYING ON HER LEFT SIDE. EYES CLOSED AND RESP. DEEP AND EVEN. SCD'S ON BLE'S WITHOUT ANY ALARMS. CALL LIGHT WITHIN REACH
--- NOTE | 2017-01-26 07:40 | NUR ---
SITTING UP IN BED EATING BREAKFAST. ALERT AND ORIENTED X4. NO S/SX OF ACUTE DISTRESS. DENIES ANY PAIN OR NEEDS. CALL LIGHT WITHIN REACH, BED LOW, ALARM ON. WILL CONTINUE TO MONITOR
[2017-01-26 08:23] VITALS: BP 167/79
--- NOTE | 2017-01-26 10:04 | NUR ---
IN THERAPY GYM WITH PHYSICAL THERAPY. NO S/SX OF ACUTE DISTRESS. WILL CONTINUE TO MONITOR
--- NOTE | 2017-01-26 10:17 | NUR ---
Nutrition Follow Up: Pt is eating 94% meal avg on an AHA diet. She is receiving Ensure BID. Meds and labs reviewed. +BM. Pt continues at low nutritional risk. Rec continue current diet, supplement regimen. RD following.
--- NOTE | 2017-01-26 13:09 | NUR ---
SITTING UP IN W/C. NO S/SX OF ACUTE DISTRESS. DENIES ANY NEEDS OR PAIN. CALL LIGHT AND PERSONAL ITEMS WITHIN REACH, W/C BRAKES LOCKED, BOX ALARM ON. WILL CONTINUE TO MONITOR
--- NOTE | 2017-01-26 16:41 | NUR ---
ASSISTED PT WITH AMBULATING FROM RECLINER TO CHAIR WITH MIN ASSIST. DENIES ANY PAIN OR CONCERNS. CALL LIGHT WITHIN REACH, BOX ALARM ON, WC BRAKES LOCKED. WILL CONTINUE TO MONITOR
--- NOTE | 2017-01-26 17:56 | NUR ---
SITTING UP EATING SUPPER. DENIES NEEDS. BED IN LOWEST POSITION.
--- NOTE | 2017-01-26 19:35 | NUR ---
PT. SITTING UP IN W/C AND IS WATCHING THE [employer] BASEBALL GAME ON TV. ASSESSMENT COMPLETED. NO VOICED NEEDS AT THIS TIME. PEÑA TO DRAINAGE BAG WITHOUT ANY PROBLEMS THIS EVENING. ASSISTED PT. TO RECLINER AND REMOVED HER SCRUB PANTS AT HER REQUEST. CALL LIGHT WITHIN REACH.
[2017-01-26 21:45] VITALS: BP 130/64
--- NOTE | 2017-01-26 23:20 | NUR ---
PT. IN BED LYING ON HER RIGHT SIDE. EYES CLOSED AND RESP. DEEP AND EVEN. SCD'S ON BLE'S WITHOUT ANY ALARMS AND HER CALL LIGHT IS WITHIN REACH.
--- NOTE | 2017-01-27 03:12 | NUR ---
PT. IN BED WITH HOB SLIGHTLY ELEVATED AND LYING ON HER LEFT SIDE. EYES CLOSED AND RESP. EVEN. PT. WORE HER RIGHT SHOULDER BRACE TO BED. CALL LIGHT WITHIN REACH.
[2017-01-27 06:16] LABS: BASOPHILS 0.2 % (0-2); EOSINOPHILS 1.6 % (0-7); HEMATOCRIT 33.4 % (36.0-48.0); HEMOGLOBIN 10.8 g/dL (12-16); IMMATURE GRANULOCYTES 0.2 % (0-5); LYMPHOCYTES 33.1 % (15-50); MCH 32.7 pg (26.0-34.0); MCHC 32.3 g/dL (31.0-37.0); MCV 101.2 fL (80.0-100.0); MEAN PLATELET VOLUME 10.4 fL (7.4-10.4); MONOCYTES 11.5 % (2-11); NEUTROPHILS 53.4 % (40-80); PLATELET COUNT 188 10x3/uL (130-400); RDW 17.1 % (11.5-14.5); WBC 4.9 10x3/uL (4.8-10.8)
[2017-01-27 06:33] LABS: CALC OSMOLALITY 280 mosm/kg (275-300); CALCIUM 9.7 mg/dL (8.5-10.1); CARBON DIOXIDE 33.3 mmol/L (21.0-32.0); CHLORIDE - SERUM 102 mmol/L (98-107); CREATININE - SERUM 0.7 mg/dL (0.6-1.3); GLUCOSE 80 mg/dL (74-106); POTASSIUM - SERUM 4.2 mmol/L (3.5-5.1); SODIUM 138 mmol/L (136-145); UREA NITROGEN 28 mg/dL (7-18); eGFR NON AFRICAN AMERICAN 83 mL/min (90-120)
--- NOTE | 2017-01-27 07:58 | NUR ---
PT SITTING UP IN BED EATING BREAKFAST, DENIES NEEDS. WCTM.
[2017-01-27 08:19] VITALS: BP 167/81
--- NOTE | 2017-01-27 10:02 | NUR ---
PT RESTING IN ROOM, DENIES NEEDS. WCTM.
--- NOTE | 2017-01-27 16:31 | NUR ---
PT SITTING UP IN RECLINER WORKING PUZZLES, DENIES NEEDS. WCTM.
--- NOTE | 2017-01-27 17:17 | NUR ---
CLINICALS FAXED TO [facility] WITH [employer] FAX # , AUTH. # [id number] WITH TENATIVE DISCHARGE DATE OF 02/03/17. FAX CONFORMATION RECIEVED
[2017-01-27 19:30] VITALS: BP 137/65
--- NOTE | 2017-01-27 19:35 | NUR ---
PT. SITTING UP IN W/C WATCHING THE [employer] BASEBALL GAME. PT. REQUSTED ASSISTANCE TO BR SHE THINKS SHE HAS HAD AN INCONTINENT BM. ASSISTED REQUESTED AND PT. DID HAVE AN INCONTINENT BM. PT. TRANSFERRED TO [facility] WHERE SHE FINISHED HAVING BM, CLEANED HERSELF, NEW BRIEF APPLIED AND TRANSFERRED BACK TO HER W/C. ASSESSMENT COMPLETED. PT. BACK TO BESIDE HER BED TO FINISH WATCHING BALL GAME. CALL LIGHT WITHIN REACH.
--- NOTE | 2017-01-27 23:20 | NUR ---
PT. IN BED WITH HOB UP FOR COMFORT AND LYING ON HER LEFT SIDE. EYES CLOSED AND RESP. EVEN. SCD'S ON AND NO ALARMS. CALL LIGHT WITHIN REACH AND PEÑA TO BDS WITHOUT PROBLEMS.
--- NOTE | 2017-01-28 03:12 | NUR ---
PT. IN BED WITH HOB UP FOR COMFORT AND CONTINUES TO LIE ON HER LEFT SIDE. EYES CLOSED AND RESP. EVEN. SCD'S TO BLE'S ON WITHOUT ALARMS, PEÑA TO BSD WITHOUT PROBLEMS AND HER CALL LIGHT REMAINS WITHIN REACH.
[2017-01-28 07:52] VITALS: BP 156/74
--- NOTE | 2017-01-28 07:59 | NUR ---
RESTING QUIETLY IN BED. CALL LIGHT IN REACH. BED IN LOWEST POSITION.
--- NOTE | 2017-01-28 12:15 | NUR ---
PT EATING LUNCH, DENIES NEEDS. WCTM.
--- NOTE | 2017-01-28 19:20 | NUR ---
PM ROUNDS MADE, PT SITTING UP IN WC, PT REQUESTS TO USE BATHROOM, PT TO BR, TRANSFERRED WITH ASSISTANCE TO COMMODE, PT INST TO USE CALL LIGHT WHEN FINISHED, PT VERBALIZES UNDERSTANDING
--- NOTE | 2017-01-28 19:30 | NUR ---
PT MACHINE SETTER SHEET METAL LIGHT, PT HAD SMALL BM, PT CLEANED UP WITH WET WARM WIPES, ADULT GARMENT CHANGED, PT BACK TO , INFORMED PT THAT I WILL BE BACK SHORTLY TO DO ASSESSMENT, PT VERBALIZES UNDERSTANDING, DENIES FURTHER NEEDS AT THIS TIME
--- NOTE | 2017-01-28 20:27 | NUR ---
PT RECEIVING RESP TREATMENT AT THIS TIME
[2017-01-28 21:27] VITALS: BP 136/72
--- NOTE | 2017-01-28 21:27 | NUR ---
ASSESSMENT PER FLOW SHEET, VS OBTAINED, ADM 2100 MEDS PER MD ORDERS, SEE EMAR, ADM TYLENOL PER MD ORDERS FOR RIGHT SHOULDER PAIN OF 3, PT IS NOT READY TO GET BACK INTO BED AT THIS TIME, PT WOULD LIKE TO GO TO BED AROUND 10PM, PT REQUESTED AND PROVIDED A BOX OF TISSUE, DENIES FURTHER NEEDS
--- NOTE | 2017-01-28 21:45 | NUR ---
PT IN HALLWAY VIA WC, JUST WANTS TO "ROLL AROUND FOR A FEW MINUTES"
--- NOTE | 2017-01-28 22:15 | NUR ---
PT BACK IN ROOM, PT TO BED, SCD'S APPLIED AND WORKING PROPERLY, PILLOW UNDER RIGHT ARM FOR COMFORT AND SUPPORT, DENIES PAIN OR FURTHER NEEDS, BED IN LOW POSITION, SIDE RAILS X 2, CALL LIGHT IN REACH
--- NOTE | 2017-01-29 00:13 | NUR ---
PT RECIEIVNG RESP TREATMENT AT THIS TIME, PT DENIES NEEDS OR PAIN AT THIS TIME, BED IN LOW POSITION, SIDE RAILS X 2, CALL LIGHT IN REACH, BED ALARM ON AND WORKING PROPERLY
--- NOTE | 2017-01-29 02:05 | NUR ---
PT RESTING WITH EYES CLOSED, RESP QUIET, NO DISTRESS NOTED, LEFT UNDISTURBED AT THIS TIME, BED IN LOW POSITION, SIDE RAILS X 2, CALL LIGHT IN REACH, BED ALARM ON AND WORKING PROPERLY
--- NOTE | 2017-01-29 04:16 | NUR ---
PT RESTING WITH EYES CLOSED, RESP QUIET, NO DISTRESS NOTED, LEFT UNDISTURBED AT THIS TIME, SCD'S CONTINUE ON AND WORKING PROPERLY, BED IN LOW POSITION, SIDE RAILS X 2, CALL LIGHT IN REACH, BED ALARM ON AND WORKING PROPERLY
--- NOTE | 2017-01-29 05:25 | NUR ---
PT RESTING WITH EYES CLOSED, AROUSES TO SOFT VERBAL STIMULATION, ADM 0600 MEDS PO PER MD ORDERS, SEE EMAR, PEÑA CATH EMPTIED, DENIES NEEDS OR PAIN AT THIS TIME, SCD'S CONTINUE ON AND WORKING PROPERLY, BED IN LOW POSITION, SIDE RAILS X 2, CALL LIGHT IN REACH
--- NOTE | 2017-01-29 06:53 | NUR ---
SHIFT REPORT TO DAY SHIFT
--- NOTE | 2017-01-29 07:39 | NUR ---
PT RESTING IN BED WITH EYES OPEN CALL LIGHT IN REACH WILL MONITER
[2017-01-29 08:53] VITALS: BP 150/71
--- NOTE | 2017-01-29 18:36 | NUR ---
PT UP IN WHEELCHAIR DOING PUZZLES NO PROBLEMS CALL LIGHT IN REACH WILL MONITER
--- NOTE | 2017-01-29 19:00 | NUR ---
GAVE PATIENT HER MENU TO COMPLETE. CURRENTLY UP IN W/C AT BEDSIDE.
[2017-01-29 21:16] VITALS: BP 138/71
--- NOTE | 2017-01-29 21:45 | NUR ---
REMAINS UP IN W/C FOR NOW. ASSESSMENT AND HS MEDS COMPLETE. GAVE HER TYLENOL 650MG PO FOR PAIN LEVEL OF 3/10 IN RIGHT SHOULDER.
--- NOTE | 2017-01-30 00:35 | NUR ---
RESTING IN BED, EYES CLOSED.
--- NOTE | 2017-01-30 02:35 | NUR ---
IN BED, RESTING QUIETLY, EYES CLOSED.
--- NOTE | 2017-01-30 04:30 | NUR ---
REMAINS IN BED, EYES CLOSED. RESTING QUIETLY.
--- NOTE | 2017-01-30 06:50 | NUR ---
IN BED AFTER RECEIVING SCHEDULED PO MEDS AND CHANGING FROM [place] TO [place]. DENIES NEEDS.
--- NOTE | 2017-01-30 08:00 | NUR ---
SHIFT ASSMT COMPLETED.CL IN REACH.
[2017-01-30 09:29] VITALS: BP 151/82
--- NOTE | 2017-01-30 12:00 | NUR ---
EATING LUNCH.CL IN REACH.
--- NOTE | 2017-01-30 16:00 | NUR ---
SITTING UP IN WC.CL IN REACH.
--- NOTE | 2017-01-30 20:20 | NUR ---
PT. SITTING UP IN W/C AND IS WATCHING FOOTBALL ON TV. ASSESSMENT COMPLETED. PEÑA TO BDS WITHOUT ANY PROBLEMS. CALL LIGHT WITHIN REACH.
[2017-01-30 20:35] VITALS: BP 128/68
--- NOTE | 2017-01-30 23:26 | NUR ---
PT. IN BED WITH HOB UP FOR COMFORT AND LAYING ON HER LEFT SIDE. EYES CLOSED AND RESP. EVEN. PEÑA TO BSD WITHOUT PROBLEMS AND HER SCD'S ARE ON WITHOUT ANY ALARMS. CALL LIGHT WITHIN REACH.
--- NOTE | 2017-01-31 03:13 | NUR ---
PT. IN BED WITH HOB UP FOR COMFORT. EYES CLOSED AND RESP. EVEN. SCD'S REMAIN ON WITHOUT ANY ALARMS AND HER CALL LIGHT IS WITHIN REACH.
[2017-01-31 10:34] VITALS: BP 149/79
[2017-01-31 19:30] VITALS: BP 129/62
--- NOTE | 2017-01-31 19:45 | NUR ---
PT. SITTING UP IN W/C AND IS WATCHING TV. ASSESSMENT COMPLETED. NO VOICED NEEDS AT THIS TIME. PEÑA TO BSD WITHOUT PROBLEMS. ASSISTED PT. INTO RECLINER AT HER REQUEST WITHOUT ANY PROBLEMS. CALL LIGHT REMAINS WITHIN REACH.
--- NOTE | 2017-01-31 23:19 | NUR ---
PT. IN BED LYING ON HER LEFT SIDE WITH EYES CLOSED AND RESP. EVEN. SCD'S TO BLE'S IN PLACE WITHOUT ALARMS. CALL LIGHT WITHIN REACH.
--- NOTE | 2017-02-01 03:16 | NUR ---
PT. IN BED WITH HOB UP FOR COMFORT AND HER EYES ARE CLOSED AND RESP. EVEN. PEÑA TO BSD WITHOUT PROBLEMS AND HER SCD'S TO BLE'S ARE ON WITHOUT ANY ALARMS. CALL LIGHT REMAINS WITHIN REACH.
[2017-02-01 06:04] LABS: BASOPHILS 0.2 % (0-2); EOSINOPHILS 1.6 % (0-7); HEMOGLOBIN 11.1 g/dL (12-16); IMMATURE GRANULOCYTES 0.2 % (0-5); LYMPHOCYTES 29.9 % (15-50); MCH 32.4 pg (26.0-34.0); MCHC 32.6 g/dL (31.0-37.0); MCV 99.1 fL (80.0-100.0); MEAN PLATELET VOLUME 10.5 fL (7.4-10.4); MONOCYTES 10.6 % (2-11); NEUTROPHILS 57.5 % (40-80); PLATELET COUNT 172 10x3/uL (130-400); RBC 3.43 10x6/uL (4.00-5.40); RDW 16.2 % (11.5-14.5); WBC 5.1 10x3/uL (4.8-10.8)
[2017-02-01 06:23] LABS: CALC OSMOLALITY 279 mosm/kg (275-300); CALCIUM 9.6 mg/dL (8.5-10.1); CHLORIDE - SERUM 100 mmol/L (98-107); CREATININE - SERUM 0.7 mg/dL (0.6-1.3); GLUCOSE 83 mg/dL (74-106); POTASSIUM - SERUM 3.8 mmol/L (3.5-5.1); SODIUM 137 mmol/L (136-145); UREA NITROGEN 33 mg/dL (7-18); eGFR NON AFRICAN AMERICAN 83 mL/min (90-120)
[2017-02-01 07:54] VITALS: BP 150/75
--- NOTE | 2017-02-01 08:00 | NUR ---
PATIENT ALERT/ORIENT WITH SOME FORGETFULNESS. USING CALL LIGHT FOR NEEDS. CALL LIGHT WITHIN REACH OF PATIENT.
--- NOTE | 2017-02-01 10:31 | NUR ---
PATIENT HELPED WITH SHOWER BY NURSE ASST. MIN TO MOD ASST WITH SHOWER.
--- NOTE | 2017-02-01 12:47 | NUR ---
PATIENT SITTING UP IN WHEELCHAIR FOR LUNCH. GOOD APPETITE. ATE 75% OF LUNCH
--- NOTE | 2017-02-01 15:36 | NUR ---
PATIENTS' IN ROOM VISITING. BROUGHT IN PATIENTS HOME MEDICATION OF PRESERVISION AREDS SOFTGEL. KEPT IN LOCK UP BY NURSING STATION
--- NOTE | 2017-02-01 17:28 | NUR ---
PATIENT SITTING IN RECLINER BY BEDSIDE TO EAT SUPPER. CALL LIGHT WITHIN REACH. VOICES NO NEEDS AT THIS TIME.
--- NOTE | 2017-02-01 18:44 | NUR ---
RESTING QUIETLY IN BED. CALL LIGHT IN REACH. BED IN LOWEST POSITION.
[2017-02-01 19:00] VITALS: BP 138/61
--- NOTE | 2017-02-01 19:37 | NUR ---
PM ROUNDS MADE, PT AT SINK WASHING HANDS, ASSISTED PT TO RECLINER, INFORMED PT THAT I WILL BE BACK SHORTLY TO DO ASSESSMENT, PT VERBALIZES UNDERSTANDING, DENIES FURTHER NEEDS AT THIS TIME
--- NOTE | 2017-02-01 20:20 | NUR ---
ASSESSMENT PER FLOW SHEET, PT REQUESTS TYLENOL AT 10PM WHEN SHE IS READY FOR BED, PT DENIES NEEDS AT THIS TIME
--- NOTE | 2017-02-01 21:30 | NUR ---
PT SITTING UP IN CHAIR, INFORMED PT THAT I WILL BE BACK SHORLTY TO ADM MEDS, PT VERBALIZES UNDERSTANDING, FRESH H20 SERVED
--- NOTE | 2017-02-01 22:13 | NUR ---
AD, 2100 MEDS PER MD ORDERS WITH APPLESAUCE AND WATER, SEE EMAR, PT TO BED, SCD'S APPLIED AND WORKING PROPERLY, PT POSITIONED TO LEFT SIDE WITH PILLOW BEHIND BACK AND UNDER RIGHT ARM PER REQUEST, PT DENIES FURTHER NEEDS, BED IN LOW POSITION, SIDE RAILS X 2, CALL LIGHT IN REACH
--- NOTE | 2017-02-02 00:39 | NUR ---
PT RESTING WITH EYES CLOSED, RESP QUIET, NO DISTRESS NOTED, LEFT UNDISTURBED AT THIS TIME, SCD'S CONTINUE ON AND WORKING PROPERLY, BED IN LOW POSITION, SIDE RAILS X 2, CALL LIGHT IN REACH
--- NOTE | 2017-02-02 06:00 | NUR ---
PT RESTING WITH EYES CLOSED, AROUSES TO SOFT VERBAL STIMULATION, ADM 0600 MEDS PER MD ORDERS, SEE CASEY HAINES EMPTIED, PT DENIES NEEDS OR PAIN AT THIS TIME, SCD'S CONTINUE ON AND WORKING PROPERLY, BED IN LOW POSITION, SIDE RAILS X 2, CALL LIGHT IN REACH
--- NOTE | 2017-02-02 06:51 | NUR ---
SHIFT REPORT TO DAY SHIFT
--- NOTE | 2017-02-02 08:35 | NUR ---
PT AM MEDS ADMINISTERED. PT DENIES NEEDS. WCTM.
[2017-02-02 09:00] VITALS: BP 147/69
--- NOTE | 2017-02-02 10:05 | NUR ---
Nutrition Follow Up: Chart reviewed. Pt is eating 100% meal avg on an AHA diet. She is receiving Ensure BID. +BM. Rec continue current diet. RD following.
--- NOTE | 2017-02-02 12:15 | NUR ---
PT EATING LUNCH, DENIES NEEDS. WCTM.
--- NOTE | 2017-02-02 17:20 | NUR ---
PT SITTING UP IN WC, WAITING FOR DINNER. WCTM.
[2017-02-02 20:00] VITALS: BP 121/59
--- NOTE | 2017-02-02 20:00 | NUR ---
PT IN WC. CHRONIC PEÑA. VERY [place], HEARING AIDS. NO O2. NO IV. NETTIE HOSE ON. SCD'S AT NIGHT. BED IN LOWEST POSITION AND CALL LIGHT WITHIN REACH.
--- NOTE | 2017-02-02 20:10 | NUR ---
UP IN W/C AT BEDSIDE. DENIES NEEDS.
--- NOTE | 2017-02-03 00:10 | NUR ---
PT IN BED WITH HOB UP FOR COMFORT. EYES CLOSED. CHEST RISING AND FALLING. BED IN LOWEST POSITION AND CALL LIGHT WITHIN REACH.
--- NOTE | 2017-02-03 04:10 | NUR ---
PT LYING IN BED WITH HOB UP FOR COMFORT. EYES CLOSED. RESPIRATIONS ARE EVEN AND UNLABORED. BED IN LOWEST POSITION AND CALL LIGHT WIHTIN REACH.
[2017-02-03 06:48] LABS: BASOPHILS 0.2 % (0-2); EOSINOPHILS 1.5 % (0-7); HEMATOCRIT 33.4 % (36.0-48.0); HEMOGLOBIN 10.8 g/dL (12-16); LYMPHOCYTES 35.6 % (15-50); MCH 32.5 pg (26.0-34.0); MCHC 32.3 g/dL (31.0-37.0); MCV 100.6 fL (80.0-100.0); MEAN PLATELET VOLUME 10.9 fL (7.4-10.4); MONOCYTES 9.5 % (2-11); NEUTROPHILS 53.2 % (40-80); PLATELET COUNT 160 10x3/uL (130-400); RBC 3.32 10x6/uL (4.00-5.40); RDW 15.9 % (11.5-14.5); WBC 4.6 10x3/uL (4.8-10.8)
[2017-02-03 07:10] LABS: CALC OSMOLALITY 279 mosm/kg (275-300); CALCIUM 9.6 mg/dL (8.5-10.1); CARBON DIOXIDE 30.5 mmol/L (21.0-32.0); CHLORIDE - SERUM 101 mmol/L (98-107); CREATININE - SERUM 0.6 mg/dL (0.6-1.3); GLUCOSE 84 mg/dL (74-106); POTASSIUM - SERUM 3.7 mmol/L (3.5-5.1); SODIUM 137 mmol/L (136-145); UREA NITROGEN 32 mg/dL (7-18); eGFR NON AFRICAN AMERICAN > 90 mL/min (90-120)
--- NOTE | 2017-02-03 08:35 | NUR ---
PT AM MEDS ADMINISTERED. PT EATING BREAKFAST, DENIES NEEDS. WCTM.
--- NOTE | 2017-02-03 09:04 | NUR ---
patient discharging home today with spouse. [facility] will resume care of patient at home. no new DME needed at this time, she has a walker and wheelchair. Dr. Arechiga 02/08/17 @ 4:10. patient choice form for Home Health and [facility] form signed, explained and filed in chart. Discharge clinicals will be faxed to [facility] marie. Ashley Schneider RN auth.#[id number]. fax # [phone]
--- NOTE | 2017-02-03 14:18 | NUR ---
PT DISCHARGED HOME WITH FAMILY.
== END 2017-02-03 14:19 | disposition home health service (06) | DRG 189 ==
LOC: D.REHAB 16:29
PROVIDERS: ADMIT Emergency Medicine
DX: J96.00 Acute respiratory failure, unspecified whether with hypoxia or hypercapnia (principal); N39.0 Urinary tract infection, site not specified; E87.1 Hypo-osmolality and hyponatremia; I50.20 Unspecified systolic (congestive) heart failure; M19.90 Unspecified osteoarthritis, unspecified site; R60.9 Edema, unspecified; R53.82 Chronic fatigue, unspecified; I51.7 Cardiomegaly; R32 Unspecified urinary incontinence; E78.5 Hyperlipidemia, unspecified; N20.0 Calculus of kidney; E55.9 Vitamin D deficiency, unspecified; R42 Dizziness and giddiness; I11.0 Hypertensive heart disease with heart failure; I48.0 Paroxysmal atrial fibrillation

== ENCOUNTER → 2017-02-26 14:20 | Outpatient (CLI) | payer MEDICARE ==
[~2017-02-26 14:20] MED LIST changes: +COREG 3.1253.125 MG PO; +FUROSEMIDE20 MG PO; +THERAGRAN M [BK1 TAB PO
== END | disposition home or self-care (01) ==
LOC: D.CT 14:20
DX: S43.014A Anterior dislocation of right humerus, initial encounter (principal)

== ENCOUNTER → 2017-03-10 15:08 | Outpatient (CLI) | payer MEDICARE ==
[2017-03-10 18:50] LABS: APPEARANCE CLEAR (CLEAR); COLOR YELLOW (YELLOW); NITRITE POSITIVE (NEGATIVE); PROTEIN TRACE mg/dL (NEGATIVE); SPECIFIC GRAVITY 1.015 (1.005-1.020)
[2017-03-10 18:51] LABS: BACTERIA MANY /hpf (NONE SEEN); BILIRUBIN NEGATIVE (NEGATIVE); EPITHELIAL CELLS 0-5 /hpf (0-5); GLUCOSE NEGATIVE (NEGATIVE); KETONE NEGATIVE (NEGATIVE); RED CELLS - URINE OCC /hpf (0-5); UROBILINOGEN NORMAL (NORMAL)
== END | disposition home or self-care (01) ==
LOC: D.LABREF 15:08
PROVIDERS: Family Medicine
DX: I11.0 Hypertensive heart disease with heart failure (principal); R33.9 Retention of urine, unspecified

== ENCOUNTER 2017-03-13 16:46 | Inpatient (IN) | payer MEDICARE ==
[~2017-03-13] VITALS: Ht 170.2 cm; Wt 69.1 kg
--- NOTE | ~2017-03-13 | HP ---
PATIENT: MARLON BAZZI MEDICAL RECORD: [id number] ACCOUNT: [id number] LOCATION:[facility] D.[id number] : [birth year] ADMISSION DATE: 03/13/17 HISTORY AND PHYSICAL EXAMINATION DATE OF ADMISSION: 03/13/2017 CHIEF COMPLAINT: Swelling is worse. HISTORY OF PRESENT ILLNESS: This is an 86-year-old female with a history of essential hypertension and congestive heart failure. She has had an echocardiogram earlier this year showing ejection fraction of 25% to 30%. She has been having worsening lower extremity edema over the last 2 weeks with weight gain 15 to 20 pounds. She had BMP drawn showing sodium of [address] Arechiga had lowered her Lasix just a few days ago. He was also started her on antibiotic for urinary tract infection, but I think she may have only taken 1 or 2 doses of that so far. Her swelling got worse. She came in yesterday to the office with worsening edema and lower urinary output. I increased her Lasix after she declined admission into the hospital for further evaluation. She is really not having any increased shortness of breath unless she tries to get up and walk. She denies any chest pain. Her was unable to take care of her and she was brought to the Emergency Department. Today, her sodium is now down to 122. Her osmolality is low at 248. Her potassium is fine, albumin a little low at 2.7. Chest x-ray shows no acute process. ProBNP elevated at 17,654. Urinalysis does show some bacteria. 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 PAST MEDICAL AND SURGICAL HISTORY: She was admitted into the hospital in December of this year with CHF and respiratory failure. She responded then to oxygen and IV Lasix. She also had a chronic inoperable right shoulder dislocation and she was discharged to rehab. She has essential hypertension, osteoarthritis, hydronephrosis of the left kidney, recurrent UTIs, chronic urinary incontinence with indwelling Gottlieb catheter. She has had a history of Clostridium difficile diarrhea, diverticulosis, dyslipidemia, remote history of closed pelvic fracture from a fall, hypothyroidism, nephrolithiasis, reflux with Schatzki's ring. PAST SURGICAL HISTORY: Cholecystectomy, bladder suspension, right total knee replacement in 2013, appendectomy. HOME MEDICATIONS: Include methenamine hippurate 1 gram p.o. daily, DuoNeb via nebulizer p.r.n. shortness of breath, lisinopril 2.5 mg once a day, Xanax 0.25 b.i.d. p.r.n. anxiety, citalopram 10 mg once a day, Voltaren gel 2 grams topically 4 times a day, Lasix 20 mg twice a day, potassium 20 mEq once a day, Lumigan 0.01% eyedrops 1 drop in each eye at bedtime, Timoptic 0.5% ophthalmic drops 1 drop in each eye at bedtime, levothyroxine 100 mcg once a day, multivitamin once a day, PreserVision 1 pill twice a day. SOCIAL HISTORY: She lives with her . Retired. FAMILY HISTORY: Parents are . They had hypertension. ALLERGIES: CARDIZEM CAUSES LOW HEART RATE, CODEINE, LOSARTAN, MOBIC, PAXIL, SOMA, SULFA. HISTORY AND PHYSICAL [id number] MARLON BAZZI REVIEW OF SYSTEMS: GENERAL: No major weight changes. HEENT: No sinus or allergy problems. RESPIRATORY: No known diagnosis of asthma or COPD. CARDIAC: History of congestive heart failure with EF 25% to 30%. GASTROINTESTINAL: She has had reflux, history of diverticular disease, history of Clostridium difficile diarrhea in the past. GENITOURINARY: She has had recurrent urinary tract infections. MUSCULOSKELETAL: She has diffuse arthritis and bad right shoulder, it is inoperable. NEUROLOGIC: Denies seizures or migraine headaches. PSYCHIATRIC: She has some depression. PHYSICAL EXAMINATION: VITAL SIGNS: Temperature 97.6, pulse 101, respirations 22, blood pressure 148/74, O2 sats 95. GENERAL: She is awake, alert. She does not appear in acute distress. SKIN: Warm and dry. HEENT: Grossly within normal limits. NECK: Supple. No JVD or bruit. HEART: Regular rate and rhythm without murmur. LUNGS: Clear to auscultation. ABDOMEN: Soft, flat, nontender. EXTREMITIES: A 3+ pitting edema bilaterally. LABORATORY DATA: CBC with a white count 12,800, hemoglobin 11.6, hematocrit 34.1, 87% polys. Sodium 122, potassium 4.7, chloride 88, CO2 33.5, BUN 20, creatinine 0.7, glucose 104, calcium 9.9. Osmolality is 248. Liver functions are all okay. ProBNP 17,654, albumin 2.7. Urinalysis yellow, 1+ blood, positive nitrite, 5-10 red blood cells, 5-10 white blood cells, few bacteria. IMAGING: Chest x-ray shows no acute process, no cardiomegaly. Urine culture is done. ASSESSMENT: 1. 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 2. History of hypertension. 3. History of congestive heart failure with ejection fraction earlier this year 25-30%. PLAN: We will admit fluid restrict telemetry, start Tolvaptan 15 mg p.o. at bedtime. Other tests and procedures as warranted. TRANSINT:[id number] Voice Confirmation ID: [id number] DOCUMENT ID: [id number] HISTORY AND PHYSICAL [id number] MARLON BAZZI, JACKIE RIVERA at 1427 CC: [id number] DICTATION DATE: 03/13/172206 KENO TERMINAL OPERATOR: 03/14/17 0038 ADM IN [facility] [address] [place] [address]
[~2017-03-13 16:46] MED LIST changes: -COREG 3.1253.125 MG PO; -FUROSEMIDE20 MG PO; -THERAGRAN M [BK1 TAB PO
[2017-03-13 17:21] LABS: APPEARANCE CLEAR (CLEAR); BILIRUBIN NEGATIVE (NEGATIVE); COLOR YELLOW (YELLOW); GLUCOSE NEGATIVE (NEGATIVE); KETONE NEGATIVE (NEGATIVE); NITRITE POSITIVE (NEGATIVE); PROTEIN TRACE mg/dL (NEGATIVE); UROBILINOGEN NORMAL (NORMAL)
[2017-03-13 17:25] LABS: AMORPHOUS SEDIMENT <1+ /lpf (NONE SEEN); BACTERIA FEW /hpf (NONE SEEN); EPITHELIAL CELLS 0-5 /hpf (0-5)
[2017-03-13 17:32] LABS: BASOPHILS 0.1 % (0-2); EOSINOPHILS 0.1 % (0-7); HEMATOCRIT 34.1 % (36.0-48.0); HEMOGLOBIN 11.6 g/dL (12-16); IMMATURE GRANULOCYTES 0.2 % (0-5); LYMPHOCYTES 4.7 % (15-50); MCH 31.4 pg (26.0-34.0); MCV 92.4 fL (80.0-100.0); MEAN PLATELET VOLUME 9.7 fL (7.4-10.4); MONOCYTES 8.3 % (2-11); NEUTROPHILS 86.6 % (40-80); RBC 3.69 10x6/uL (4.00-5.40); WBC 12.8 10x3/uL (4.8-10.8)
[2017-03-13 17:35] LABS: PLATELET COUNT 214 10x3/uL (130-400)
[2017-03-13 17:53] LABS: ALBUMIN 2.7 g/dL (3.4-5.0); ALKALINE PHOSPHATASE 79 U/L (46-116); ALT (SGPT) 21 U/L (10-68); BILIRUBIN - TOTAL 0.49 mg/dL (0.2-1.3); CALC OSMOLALITY 248 mosm/kg (275-300); CALCIUM 9.9 mg/dL (8.5-10.1); CARBON DIOXIDE 33.5 mmol/L (21.0-32.0); CHLORIDE - SERUM 88 mmol/L (98-107); CREATININE - SERUM 0.7 mg/dL (0.6-1.3); GLUCOSE 104 mg/dL (74-106); POTASSIUM - SERUM 4.7 mmol/L (3.5-5.1); SODIUM 122 mmol/L (136-145); UREA NITROGEN 20 mg/dL (7-18); eGFR NON AFRICAN AMERICAN 83 mL/min (90-120)
[2017-03-13 18:01] LABS: PRO BNP 17654 pg/mL (0-450)
[2017-03-13 20:00] VITALS: BP 149/74
[2017-03-14] VITALS (7 sets, daily range): BP systolic 118–150; BP diastolic 68–86
[2017-03-14 06:22] LABS: BASOPHILS 0.1 % (0-2); EOSINOPHILS 0.1 % (0-7); HEMATOCRIT 34.5 % (36.0-48.0); HEMOGLOBIN 11.6 g/dL (12-16); IMMATURE GRANULOCYTES 0.2 % (0-5); LYMPHOCYTES 6.4 % (15-50); MCH 30.9 pg (26.0-34.0); MCHC 33.6 g/dL (31.0-37.0); MCV 91.8 fL (80.0-100.0); MEAN PLATELET VOLUME 10.2 fL (7.4-10.4); MONOCYTES 8.9 % (2-11); NEUTROPHILS 84.3 % (40-80); PLATELET COUNT 230 10x3/uL (130-400); RBC 3.76 10x6/uL (4.00-5.40); RDW 14.2 % (11.5-14.5); WBC 11.5 10x3/uL (4.8-10.8)
[2017-03-14 07:01] LABS: CALC OSMOLALITY 253 mosm/kg (275-300); CALCIUM 9.5 mg/dL (8.5-10.1); CARBON DIOXIDE 32.3 mmol/L (21.0-32.0); CHLORIDE - SERUM 89 mmol/L (98-107); CREATININE - SERUM 0.6 mg/dL (0.6-1.3); GLUCOSE 101 mg/dL (74-106); POTASSIUM - SERUM 4.4 mmol/L (3.5-5.1); SODIUM 125 mmol/L (136-145); UREA NITROGEN 19 mg/dL (7-18); eGFR NON AFRICAN AMERICAN > 90 mL/min (90-120)
[2017-03-15 00:58] VITALS: BP 113/77
[2017-03-15 05:19] VITALS: BP 133/70
[2017-03-15 08:02] VITALS: BP 106/66
[2017-03-15 13:05] VITALS: BP 107/58
[2017-03-15 13:56] VITALS: Ht 170.2 cm; Wt 69.1 kg
[2017-03-15 16:31] VITALS: BP 95/53
[2017-03-15 19:00] VITALS: BP 129/68
[2017-03-16 04:00] VITALS: BP 100/67
[2017-03-16 06:11] LABS: CALC OSMOLALITY 257 mosm/kg (275-300); CALCIUM 9.7 mg/dL (8.5-10.1); CARBON DIOXIDE 33.6 mmol/L (21.0-32.0); CHLORIDE - SERUM 93 mmol/L (98-107); CREATININE - SERUM 0.6 mg/dL (0.6-1.3); GLUCOSE 100 mg/dL (74-106); SODIUM 127 mmol/L (136-145); UREA NITROGEN 20 mg/dL (7-18); eGFR NON AFRICAN AMERICAN > 90 mL/min (90-120)
[2017-03-16 06:12] LABS: POTASSIUM - SERUM 3.7 mmol/L (3.5-5.1)
[2017-03-16 08:52] VITALS: BP 137/78
[2017-03-16 12:12] VITALS: BP 90/47
[2017-03-16 16:11] VITALS: BP 116/61
[2017-03-16 20:23] VITALS: BP 101/41
[2017-03-17] VITALS: BP 143/56
[2017-03-17 04:00] VITALS: BP 122/61
[2017-03-17 05:34] LABS: CALC OSMOLALITY 262 mosm/kg (275-300); CARBON DIOXIDE 32.1 mmol/L (21.0-32.0); CHLORIDE - SERUM 94 mmol/L (98-107); CREATININE - SERUM 0.6 mg/dL (0.6-1.3); GLUCOSE 97 mg/dL (74-106); POTASSIUM - SERUM 3.9 mmol/L (3.5-5.1); SODIUM 129 mmol/L (136-145); UREA NITROGEN 24 mg/dL (7-18); eGFR NON AFRICAN AMERICAN > 90 mL/min (90-120)
[2017-03-17 08:00] VITALS: BP 132/69
[2017-03-17 13:16] VITALS: BP 109/56
[2017-03-17 17:32] VITALS: BP 115/61
[2017-03-18] VITALS: BP 125/63
[2017-03-18 06:27] LABS: CALC OSMOLALITY 261 mosm/kg (275-300); CALCIUM 9.8 mg/dL (8.5-10.1); CARBON DIOXIDE 30.9 mmol/L (21.0-32.0); CHLORIDE - SERUM 94 mmol/L (98-107); CREATININE - SERUM 0.7 mg/dL (0.6-1.3); GLUCOSE 97 mg/dL (74-106); SODIUM 129 mmol/L (136-145); UREA NITROGEN 22 mg/dL (7-18); eGFR NON AFRICAN AMERICAN 83 mL/min (90-120)
[2017-03-18 06:30] LABS: POTASSIUM - SERUM 3.3 mmol/L (3.5-5.1)
[2017-03-18 08:51] VITALS: BP 118/67
[2017-03-18 12:30] VITALS: BP 103/59
[2017-03-18 20:00] VITALS: BP 103/46
[2017-03-19] VITALS: BP 129/60
[2017-03-19 04:00] VITALS: BP 130/68
[2017-03-19 06:14] LABS: CALC OSMOLALITY 260 mosm/kg (275-300); CALCIUM 9.8 mg/dL (8.5-10.1); CARBON DIOXIDE 30.2 mmol/L (21.0-32.0); CHLORIDE - SERUM 95 mmol/L (98-107); CREATININE - SERUM 0.7 mg/dL (0.6-1.3); GLUCOSE 107 mg/dL (74-106); POTASSIUM - SERUM 3.3 mmol/L (3.5-5.1); SODIUM 128 mmol/L (136-145); UREA NITROGEN 24 mg/dL (7-18); eGFR NON AFRICAN AMERICAN 83 mL/min (90-120)
[2017-03-19 08:32] VITALS: BP 161/71
[2017-03-19 12:05] VITALS: BP 133/79
[2017-03-19 20:19] VITALS: BP 112/53
[2017-03-20 00:16] VITALS: BP 113/57
[2017-03-20 05:23] LABS: CALCIUM 9.6 mg/dL (8.5-10.1); CARBON DIOXIDE 31.8 mmol/L (21.0-32.0); CREATININE - SERUM 0.8 mg/dL (0.6-1.3); MAGNESIUM - SERUM 1.9 mg/dL (1.8-2.4); PHOSPHOROUS 2.8 mg/dL (2.5-4.9)
[2017-03-20 05:26] LABS: POTASSIUM - SERUM 3.8 mmol/L (3.5-5.1)
[2017-03-20 05:31] VITALS: BP 141/47
[2017-03-20 08:09] VITALS: BP 138/74
[2017-03-20 12:02] VITALS: BP 121/59
[2017-03-20 16:41] VITALS: BP 121/84
[2017-03-20 19:00] VITALS: BP 135/65
[2017-03-21] VITALS: BP 129/64
[2017-03-21 04:00] VITALS: BP 126/55
[2017-03-21 06:31] LABS: CALC OSMOLALITY 268 mosm/kg (275-300); CALCIUM 9.5 mg/dL (8.5-10.1); CARBON DIOXIDE 29.6 mmol/L (21.0-32.0); CHLORIDE - SERUM 97 mmol/L (98-107); CREATININE - SERUM 0.7 mg/dL (0.6-1.3); GLUCOSE 95 mg/dL (74-106); PHOSPHOROUS 2.5 mg/dL (2.5-4.9); POTASSIUM - SERUM 3.6 mmol/L (3.5-5.1); SODIUM 132 mmol/L (136-145); UREA NITROGEN 24 mg/dL (7-18); eGFR NON AFRICAN AMERICAN 83 mL/min (90-120)
[2017-03-21 07:35] VITALS: BP 136/54
[2017-03-21 11:55] VITALS: BP 100/46
[2017-03-21 15:09] VITALS: BP 114/58
[2017-03-21 20:36] VITALS: BP 116/53
[2017-03-22 01:20] VITALS: BP 130/69
[2017-03-22 05:31] VITALS: BP 124/67
[2017-03-22 08:20] VITALS: BP 156/62
[2017-03-22 11:15] VITALS: BP 120/62
[2017-03-22 15:45] VITALS: BP 129/51
[2017-03-22 19:00] VITALS: BP 134/64
[2017-03-23 04:00] VITALS: BP 133/61
[2017-03-23 06:09] LABS: CALC OSMOLALITY 264 mosm/kg (275-300); CALCIUM 9.8 mg/dL (8.5-10.1); CARBON DIOXIDE 26.4 mmol/L (21.0-32.0); CHLORIDE - SERUM 101 mmol/L (98-107); GLUCOSE 107 mg/dL (74-106); PHOSPHOROUS 2.7 mg/dL (2.5-4.9); SODIUM 130 mmol/L (136-145); UREA NITROGEN 25 mg/dL (7-18)
[2017-03-23 06:11] LABS: CREATININE - SERUM 0.5 mg/dL (0.6-1.3); POTASSIUM - SERUM 4.5 mmol/L (3.5-5.1); eGFR NON AFRICAN AMERICAN > 90 mL/min (90-120)
[2017-03-23 08:31] VITALS: BP 141/74
[2017-03-23 12:00] VITALS: BP 137/69
[2017-03-23 19:00] VITALS: BP 132/67
[2017-03-24 04:00] VITALS: BP 125/63
[2017-03-24 06:08] LABS: CALC OSMOLALITY 275 mosm/kg (275-300); CALCIUM 9.8 mg/dL (8.5-10.1); CARBON DIOXIDE 30.5 mmol/L (21.0-32.0); CHLORIDE - SERUM 102 mmol/L (98-107); GLUCOSE 106 mg/dL (74-106); PHOSPHOROUS 2.7 mg/dL (2.5-4.9); SODIUM 135 mmol/L (136-145); UREA NITROGEN 29 mg/dL (7-18)
[2017-03-24 06:16] LABS: CREATININE - SERUM 0.7 mg/dL (0.6-1.3); POTASSIUM - SERUM 3.8 mmol/L (3.5-5.1); eGFR NON AFRICAN AMERICAN 83 mL/min (90-120)
[2017-03-24 08:11] VITALS: BP 130/67
[2017-03-24 12:29] VITALS: BP 119/58
[2017-03-24 16:11] VITALS: BP 138/70
[2017-03-24 23:29] VITALS: BP 97/73
[2017-03-25 04:21] VITALS: BP 143/74
[2017-03-25 05:10] LABS: CALC OSMOLALITY 275 mosm/kg (275-300); CALCIUM 9.9 mg/dL (8.5-10.1); CARBON DIOXIDE 28.9 mmol/L (21.0-32.0); CHLORIDE - SERUM 102 mmol/L (98-107); CREATININE - SERUM 0.7 mg/dL (0.6-1.3); GLUCOSE 110 mg/dL (74-106); SODIUM 135 mmol/L (136-145); UREA NITROGEN 27 mg/dL (7-18); eGFR NON AFRICAN AMERICAN 83 mL/min (90-120)
[2017-03-25] MEDS ORDERED: COREG 3.1253.125 MG PO (07:46)
[2017-03-25] MEDS ORDERED: THERAGRAN M [BK1 TAB PO (07:47)
[2017-03-25] MEDS ORDERED: FUROSEMIDE20 MG PO (07:48)
[2017-03-25 07:56] VITALS: BP 147/87
== END 2017-03-25 09:48 | DRG 643 ==
LOC: D.ER 16:46 → D.M2 19:06
PROVIDERS: Emergency Medicine; Family Medicine; Internal Medicine Nephrology
PROC: 0T9B70Z Drainage of Bladder with Drainage Device, Via Natural or Artificial Opening (ICD-10-PCS; principal; 2017-03-13)
DX: E22.2 Syndrome of inappropriate secretion of antidiuretic hormone (principal); I50.23 Acute on chronic systolic (congestive) heart failure; N39.0 Urinary tract infection, site not specified; N13.30 Unspecified hydronephrosis; I11.0 Hypertensive heart disease with heart failure; B96.1 Klebsiella pneumoniae [K. pneumoniae] as the cause of diseases classified elsewhere; B95.2 Enterococcus as the cause of diseases classified elsewhere; I48.0 Paroxysmal atrial fibrillation; M19.90 Unspecified osteoarthritis, unspecified site; K57.90 Diverticulosis of intestine, part unspecified, without perforation or abscess without bleeding; E03.9 Hypothyroidism, unspecified; K21.9 Gastro-esophageal reflux disease without esophagitis

== ENCOUNTER 2017-07-21 10:14 | Inpatient (IN) | payer MEDICARE ==
[~2017-07-21] VITALS: Ht 170.2 cm; Wt 73.0 kg
--- NOTE | ~2017-07-21 | HP ---
PATIENT: MARLON BAZZI MEDICAL RECORD: [id number] ACCOUNT: [id number] LOCATION:[address] : [birth year] ADMISSION DATE: 07/21/17 HISTORY AND PHYSICAL EXAMINATION REASON FOR ADMISSION: Altered mental status and hypoxemia. HISTORY OF PRESENT ILLNESS: The patient is an 86-year-old female who has been in the long-term at [facility] since February last year. At that time, she was hospitalized for hyponatremia and chronic right shoulder dislocation and rehabilitation. She has been essentially bedridden since that time at the long-term. She was apparently started on Omnicef a few days ago for UTI, culture is not available. She become more confused and listless over the last 24 hours and presented to the Emergency Room for that reason. There has been no documented fever. There has not been any cough noted as well. PAST MEDICAL HISTORY: Simple essential hypertension, history of systolic congestive heart failure with last EF in February of 30%, right shoulder dislocation inoperable due to her multiple medical complaints, hyponatremia, thought diuretic-induced, hydronephrosis on the left kidney followed by Dr. Willett, chronic urinary tract infections with incontinence, indwelling Gottlieb, was hospitalized in February last year for respiratory failure and demand ischemia, LVH, wall motion abnormalities, history of Clostridium difficile diarrhea, history of lower GI bleed with diverticular disease, retob-ff-yjlxknb anemia of GI blood loss, dyslipidemia, remote pelvic fracture from fall, hypothyroidism, nephrolithiasis, GERD with Schatzki's ring, and vitamin D deficiency. ALLERGIES: CARDIZEM CAUSE LOW HEART RATE, CODEINE, COZAAR, LUMINAL, MOBIC, PAXIL, SOMA, AND SULFA ARE ALL ALLERGIES. FAMILY HISTORY: Both parents are obviously diseased, they had hypertension. PAST SURGICAL HISTORY: Cholecystectomy, laparoscopically, bladder suspension, right total knee replacement in 2013, and appendectomy. SOCIAL HISTORY: She lived with her up until 6 months ago and has now been in the long-term. She is not independent at all and requires constant care. She does not have a history of cigarette or alcohol use HALFWAY MEDICATIONS: Acetaminophen 325 every 4 hours as needed, lactobacillus 1 cap b.i.d., bimatoprost 0.01% one drop to both eyes at bedtime, Celexa 10 mg a day, Klonopin 0.5 mg every 12 hours p.r.n. anxiety, Coreg 6.25 mg daily, DuoNeb q.6 hours., Lasix 20 mg p.o. Wednesday, Wednesday, and Wednesday, lisinopril 2.5 mg a day, MVI 1 daily, potassium ER 20 mEq daily, PreserVision AREDS 1 cap p.o. b.i.d., senna tab 1 daily, Synthroid 100 mcg p.o. daily, Timoptic 0.5% one drop eyes at bedtime, and Voltaren gel applied to sore joint q.i.d. REVIEW OF SYSTEMS: Unobtainable from the patient, reportedly the patient has been more lethargic in the last 2 days. There has been no fever noted. RESPIRATORY: She has had mild shortness of breath, no cough. CARDIAC: No recent chest pain noted or increasing edema. GENITOURINARY: Has indwelling Gottlieb. Urine has been off color recently. MUSCULOSKELETAL: There is chronic pain in her right shoulder, it is dislocated. HISTORY AND PHYSICAL [id number] MARLON BAZZI She has chronic pain in both knees as well. NEUROLOGIC: No history of stroke, TIA, or vascular headaches. No seizures. PHYSICAL EXAMINATION: VITAL SIGNS: Temperature is 98.5 Fahrenheit orally, pulse 92 and irregular, respirations are 20, blood pressure is 174/109, sat 94-98% on 2 liters, respiratory rate is 16, height 65 inches, weight 161 pounds. BMI 26.8. HEENT: The patient is normocephalic. Eyes are clear. Palpebral conjunctivae are pale. Oropharynx dry mucous membranes. NECK: Supple. CHEST: She has decreased breath sounds in the right base and left base. No wheezes are noted. She is not retracting. HEART: Irregular rate without gallop. ABDOMEN: Obese, soft, nontender. PELVIC: Deferred. Gottlieb is in place. EXTREMITIES: She has 2-3+ mild pedal and pretibial edema of the knees bilaterally. NEUROLOGICAL: The patient will open her eyes when talked to and responds, but speech is intelligible. She is moving arms and legs without difficulty. Gait is not testable. LABORATORY DATA: Shows a white count of 8400 with 89% neutrophils, platelet counts 129,000, H&H is 10.6 and 35.3 respectively. Sodium is 131, potassium is 5, serum CO2 is 36.8, BUN is 23, creatinine is 0.6, lactate 0.9, calcium is 10.2. ProBNP is 2186. Urine is cloudy, 2+ protein, nitrite positive, 25-50 red cells, greater than 50 white blood cells, many bacteria. CT of the head shows no acute intracranial abnormality, opacification of the right maxillary sinus and right mastoid effusion is noted. Chest x-ray shows moderate sized loculated right pleural effusion, mild pulmonary edema, left basilar opacification, possible pleural effusion versus pneumonia. CT of the chest shows large right and smaller left loculated pleural effusions with adjacent atelectasis or pneumonia. An underlying mass cannot be excluded, cardiomegaly, hiatal hernia, no specific lesions in the liver, left renal cystic structure, moderate anasarca, multiple thyroid nodules. EKG shows atrial fibrillation with controlled rate. ASSESSMENT: 1. Congestive heart failure with hypoxemia. 2. Right pleural effusion. 3. Hyponatremia. 4. Systolic congestive heart failure. 5. Jlhpu-wv-vytqldr urinary tract infection. 6. Chronic dislocated right humeral head. 7. Essential hypertension. 8. Hypothyroidism. 9. Thyroid nodules. 10. Right maxillary sinusitis. 11. Cardiomegaly. 12. Anasarca. 13. Hypothyroidism. PLAN: The patient will be placed on Merrem and vancomycin due to a long-term associated pneumonia. Pulmonary has been consulted. We will discuss with her how aggressive he wishes to be in her management as I remember she has been a DNR and DNI in the past. Further workup pending clinical course and his HISTORY AND PHYSICAL [id number] MARLON BAZZI. TRANSINT:[id number] Voice Confirmation ID: [id number] DOCUMENT ID: [id number] DEJON JACKSON MD at 0652 CC: [id number] DICTATION DATE: 07/21/171705 WATCH MECHANIC: 07/21/172151 ADM IN [facility] [address] [place] [address]
[~2017-07-21 10:14] MED LIST changes: +COREG 3.1253.125 MG PO; +FUROSEMIDE20 MG PO; +THERAGRAN M [BK1 TAB PO
[2017-07-21 11:04] LABS: BASOPHILS 0 % (0-2); EOSINOPHILS 0.1 % (0-7); HEMATOCRIT 35.3 % (36.0-48.0); HEMOGLOBIN 10.6 g/dL (12-16); IMMATURE GRANULOCYTES 1.1 % (0-5); LYMPHOCYTES 5.5 % (15-50); MCH 29.1 pg (26.0-34.0); MEAN PLATELET VOLUME 11.1 fL (7.4-10.4); MONOCYTES 3.5 % (2-11); NEUTROPHILS 89.8 % (40-80); RBC 3.64 10x6/uL (4.00-5.40); WBC 8.4 10x3/uL (4.8-10.8)
[2017-07-21 11:17] LABS: PLATELET COUNT 129 10x3/uL (130-400)
[2017-07-21 11:20] LABS: ALBUMIN 2.6 g/dL (3.4-5.0); ALKALINE PHOSPHATASE 55 U/L (46-116); ALT (SGPT) 25 U/L (10-68); BILIRUBIN - TOTAL 0.43 mg/dL (0.2-1.3); CALC OSMOLALITY 267 mosm/kg (275-300); CALCIUM 10.2 mg/dL (8.5-10.1); CARBON DIOXIDE 36.8 mmol/L (21.0-32.0); CHLORIDE - SERUM 92 mmol/L (98-107); CREATININE - SERUM 0.6 mg/dL (0.6-1.3); GLUCOSE 118 mg/dL (74-106); PROTEIN - SERUM 7.1 g/dL (6.4-8.2); SODIUM 131 mmol/L (136-145); UREA NITROGEN 23 mg/dL (7-18); eGFR NON AFRICAN AMERICAN > 90 mL/min (90-120)
[2017-07-21 12:38] LABS: APPEARANCE CLOUDY (CLEAR); BILIRUBIN NEGATIVE (NEGATIVE); COLOR DK YELLOW (YELLOW); GLUCOSE NEGATIVE (NEGATIVE); KETONE SMALL mg/dL (NEGATIVE); NITRITE POSITIVE (NEGATIVE); PROTEIN 2+ mg/dL (NEGATIVE); UROBILINOGEN NORMAL (NORMAL)
[2017-07-21 12:39] LABS: BACTERIA MANY /hpf (NONE SEEN); CALCIUM OXALATE CRYSTALS RARE /hpf (NONE SEEN); EPITHELIAL CELLS 0-5 /hpf (0-5); MUCUS <1+ /lpf (NONE SEEN); RED CELLS - URINE 25-50 /hpf (0-5); WHITE CELLS - URINE >50 /hpf (0-5)
[2017-07-22 05:58] VITALS: BP 144/100
[2017-07-22 07:24] LABS: BASOPHILS 0 % (0-2); EOSINOPHILS 0 % (0-7); HEMOGLOBIN 11.3 g/dL (12-16); IMMATURE GRANULOCYTES 0.4 % (0-5); LYMPHOCYTES 6.2 % (15-50); MCH 29.6 pg (26.0-34.0); MCHC 30.5 g/dL (31.0-37.0); MCV 96.9 fL (80.0-100.0); MEAN PLATELET VOLUME 10.2 fL (7.4-10.4); MONOCYTES 3.7 % (2-11); NEUTROPHILS 89.7 % (40-80); PLATELET COUNT 140 10x3/uL (130-400); RBC 3.82 10x6/uL (4.00-5.40); RDW 17.1 % (11.5-14.5); WBC 9.4 10x3/uL (4.8-10.8)
[2017-07-22 07:38] LABS: CALC OSMOLALITY 268 mosm/kg (275-300); CALCIUM 9.8 mg/dL (8.5-10.1); CARBON DIOXIDE 37.5 mmol/L (21.0-32.0); CHLORIDE - SERUM 92 mmol/L (98-107); CREATININE - SERUM 0.7 mg/dL (0.6-1.3); GLUCOSE 98 mg/dL (74-106); POTASSIUM - SERUM 4.4 mmol/L (3.5-5.1); SODIUM 133 mmol/L (136-145); UREA NITROGEN 22 mg/dL (7-18); eGFR NON AFRICAN AMERICAN 83 mL/min (90-120)
[2017-07-22 07:49] VITALS: BP 156/73
[2017-07-22 10:57] VITALS: BP 146/69
[2017-07-22 13:28] VITALS: Ht 170.2 cm; Wt 73.0 kg
[2017-07-22 15:11] VITALS: BP 142/89
== END 2017-07-22 19:56 | disposition hospice, inpatient (51) | DRG 291 ==
LOC: D.ER 10:14 → D.M2 13:48 → D.EDHOLD 13:48 → D.M2 20:32
PROVIDERS: Emergency Medicine; Family Medicine
PROC: 5A09357 Assistance with Respiratory Ventilation, Less than 24 Consecutive Hours, Continuous Positive Airway Pressure (ICD-10-PCS; principal; 2017-07-22)
DX: I11.0 Hypertensive heart disease with heart failure (principal); J96.21 Acute and chronic respiratory failure with hypoxia; G93.41 Metabolic encephalopathy; J96.22 Acute and chronic respiratory failure with hypercapnia; J98.11 Atelectasis; E87.1 Hypo-osmolality and hyponatremia; N39.0 Urinary tract infection, site not specified; N13.30 Unspecified hydronephrosis; I50.23 Acute on chronic systolic (congestive) heart failure; J32.0 Chronic maxillary sinusitis; E78.5 Hyperlipidemia, unspecified; E03.9 Hypothyroidism, unspecified; K21.9 Gastro-esophageal reflux disease without esophagitis; Z66 Do not resuscitate; K57.90 Diverticulosis of intestine, part unspecified, without perforation or abscess without bleeding; M24.411 Recurrent dislocation, right shoulder; K44.9 Diaphragmatic hernia without obstruction or gangrene; E04.1 Nontoxic single thyroid nodule; K76.9 Liver disease, unspecified

== ENCOUNTER 2017-07-22 19:53 | Inpatient (IN) | payer OTHER ==
[~2017-07-22] VITALS: Ht 170.2 cm; Wt 73.2 kg
[2017-07-23 00:45] VITALS: BMI 25.2
[2017-07-23 02:01] VITALS: BP 154/67
[2017-07-23 05:32] VITALS: BP 148/72
[2017-07-23 07:40] VITALS: BP 159/48
[2017-07-23 13:32] VITALS: Ht 170.2 cm; Wt 73.2 kg
== END 2017-07-23 13:51 | DRG 951 ==
LOC: D.M2 19:53
DX: Z51.5 Encounter for palliative care (principal)